=== PATIENT | male | born 1945 ===

== ENCOUNTER 2020-05-02 11:33 | Outpatient (REF) | payer MEDICARE, OTHER, SELFPAY ==
[2020-05-02 12:30] LABS: MANUAL DIFF FLAG NO
[2020-05-02 12:35] LABS: Basophils Percent Auto 0.5 % (0-2); Eosinophils Absolute Auto 0.1 X10*3/uL (0.0-0.4); Eosinophils Percent Auto 1.4 % (0-4); Hematocrit 40.9 % (42-52); Hemoglobin 14.2 g/dl (14.0-18.0); Imm Gran Abs Auto 0.01 X10*3/uL (0.00-0.03); Imm Gran Pct Auto 0.2 % (0.0-0.4); Lymphocytes Absolute Auto 2.7 X10*3/uL (1.2-4.9); Lymphocytes Percent Auto 46.1 % (20-40); Mean Corpuscular HGB Conc 34.7 g/dl (31.0-36.0); Mean Corpuscular Hemoglobin 30.7 pg (27.0-33.0); Mean Corpuscular Volume 88.5 fL (80-98); Mean Platelet Volume 11.2 fL (9.4-12.4); Monocytes Absolute Auto 0.4 X10*3/uL (0.1-1.2); Monocytes Percent Auto 6.6 % (2-11); Neutrophils Absolute Auto 2.7 X10*3/uL (2.0-8.3); Neutrophils Percent Auto 45.2 % (45-73); Platelet Count 167 X10*3/uL (160-400); Red Blood Count 4.62 X10*6/uL (4.60-5.80); White Blood Count 5.9 X10*3/uL (4.8-10.8)
[2020-05-02 13:15] LABS: Alanine Aminotransferase 50 U/L (0-40); Albumin Level 3.8 g/dL (3.5-5.0); Alkaline Phosphatase 156 U/L (39-117); Anion Gap 12 (12-20); Aspartate Amino Transferase 66 U/L (5-37); Bilirubin Total 1.2 mg/dL (0.0-1.0); Blood Urea Nitrogen 18 mg/dL (9-16); Carbon Dioxide 25 mmol/L (22-29); Chloride 105 mmol/L (96-108); Cholesterol 209 mg/dL; Estimated Glomerular Filt Rate > 60; Glucose Random 142 mg/dL (60-115); HDL Cholesterol 42 mg/dL; LDL Cholesterol Calculated 135 mg/dl; Potassium 3.8 mmol/l (3.3-5.1); Sodium 138 mmol/L (135-145); Total Protein 7.8 g/dL (6.5-8.0); Triglycerides 163 mg/dL
[2020-05-02 13:37] LABS: Thyroid Stimulating Hormone 2.79 uIU/mL (0.32-4.0)
[2020-05-02 13:43] LABS: Vitamin B12 273 pg/mL (200-900)
[2020-05-02 13:44] LABS: Estimated Average Glucose 194 mg/dL; Hemoglobin A1c % 8.4 %
[2020-05-03 22:13] LABS: Calcium (PTHI) 9.1 mg/dL (8.6-10.3); PTHI 37 pg/mL (14-64)
== END 2020-05-02 11:34 | disposition home or self-care (01) ==
LOC: HO.LAB 11:33
PROVIDERS: Visit Provider Internal Medicine Geriatric Medicine
DX: E11.9 Type 2 diabetes mellitus without complications (principal); R41.89 Other symptoms and signs involving cognitive functions and awareness
CPT/HCPCS: 36415; 80053; 80061; 82607; 83036; 83970; 84443; 85025

== ENCOUNTER → 2020-05-18 13:39 | Outpatient (REF) | payer MEDICARE, OTHER, SELFPAY ==
--- NOTE | 2020-05-18 13:45 | CA_ITS ---
Transthoracic Echocardiogram Patient (Last, First, Middle): Duane Coleman, Gender: Male Date of : 1945 Age: 74 Procedure Date: 05/18/2020 Procedure Type: Transthoracic Echocardiogram Location: OP Height: 175.26 cm Weight: 97.52 kg BSA: 2.13 m2 Heart Rate: bpm BP: 148 / 76 mmHg Neuropsychology Division Chief: MELBA Referring MD: Rudy Blandon MD Furniture Arranger: Alec Casper MD Symptoms: i21.4 NSTEMI Study Quality: Fair ECG Rhythm: Sinus Conclusions: - 1. Normal LV systolic function with grade 1 diastolic dysfunction 2. Mildly dilated ascending aorta at 4.2 cm 3. Trivial aortic regurgitation 4. Normal RV systolic pressure 5. No pericardial effusion Findings Left Ventricle Normal left ventricular size, thickness, and systolic function. The visually estimated ejection fraction is between 60-65%. Spectral Doppler is indicative of an impaired relaxation filling pattern. E/E prime ratio is <8, consistent with normal filling pressures. Evidence suggests grade I (mild) diastolic dysfunction. Right Ventricle Normal right ventricular cavity size and systolic function. Atria The left atrium is normal in size. Interatrial shunt cannot be excluded. The right atrium was not well visualized. Aortic Valve The aortic valve was not well visualized. There is no aortic valve stenosis. There is trace (trivial) aortic valve regurgitation. Mitral Valve Likely normal mitral valve structure and function. There is trace mitral valve regurgitation. There is no mitral valve stenosis. Pulmonic Valve The pulmonic valve was not well visualized. Tricuspid Valve Likely normal tricuspid valve structure and function. There is trace tricuspid valve regurgitation. The right ventricular systolic pressure is normal. The right ventricular systolic pressure is 23 mmHg. Normal right atrial pressure. There is no evidence of pulmonary hypertension. Great Vessels The pulmonary artery was not well visualized. There is mild dilatation of the ascending aorta measuring 4.20 cm. Venous The inferior vena cava is normal in size and collapses greater than 50% with inspiration. Pericardium/Pleural There is no evidence of pericardial effusion. Prior Study Comparison No significant change compared to prior study dated: 05/04/2019. Measurements 2D Linear Measurements IVSd: 1.16 0.6-0.9/0.6-1.0 cm LVIDd: 4.73 3.9-5.3/4.2-5.9 cm LVIDd Index: 2.22 2.4-3.2/2.2-3.1 cm/m2 LVIDs: 3.39 2.0-3.6 cm LVPWd: 1.04 0.7-1.1 cm Ao Root: 2.90 2.1-3.5 cm LA Diam: 3.50 2.7-3.8/3.0-4.0 cm LAIDs Index: 1.64 1.5-2.3 cm/m2 LV Mass: 236.07 67-162/88-224 g LV Mass Index: 110.83 43-95/49-115 g/m2 LVOT Diam: 2.30 3.0+(-)1.3 cm 2D Systolic Function EF 4C: 64.80 >55% Mitral Valve MV Pk E: 0.57 MV PK A: 0.85 MV Decel Time: 268.00 E/A: 0.70 E'Lateral: 7.83 E'Medial: 6.38 E/E' Med: 9.00 E/E' Lat: 7.30 PHT: 78.00 MVA PHT: 2.82 Decel [place]: 2.14 Aortic Valve AoV Pk Wil: 1.64 AoV Pk Grad: 11.00 LVOT LVOT Pk Wil: 0.96 LVOT Mn Wil: 0.63 LVOT VTI: 0.21 LVOT Pk Grad: 4.00 LVOT Mn Grad: 2.00 LVOT Diam: 2.30 LVOT Area: 4.15 Diastolic Function MV Pk E: 0.57 MV Pk A: 0.85 E/A: 0.70 E'Medial: 6.38 E/E' Med: 9.00 E' Laterial: 7.83 E/E' Lat: 7.30 Tricuspid Valve TR Pk Wil: 2.24 TR Pk Grad: 20.00 RA Press: 3.00 RVSP: 23.00 Great Vessels Aorta Ao Root-2D: 2.90 2.0-3.7 cm Ao Asc: 4.20 2.1-3.4 cm Updated in Other Vendor System with Status of Final Alec Casepr MD electronically signed on 05/18/2020 6:19:22 PM with status of Final
== END ==
LOC: HO.CARD 13:39
PROVIDERS: Visit Provider Internal Medicine
DX: I21.4 Non-ST elevation (NSTEMI) myocardial infarction (principal); I77.810 Thoracic aortic ectasia
CPT/HCPCS: 93306

== ENCOUNTER → 2020-05-25 13:47 | Outpatient (BNVA) | payer MEDICARE, OTHER, SELFPAY | PROVIDERS: PCP Family Medicine; Referring Provider Family Medicine; Visit Provider Internal Medicine | DX: I25.10 Atherosclerotic heart disease of native coronary artery without angina pectoris (principal); I63.9 Cerebral infarction, unspecified; I77.810 Thoracic aortic ectasia; I10 Essential (primary) hypertension; I47.2 Ventricular tachycardia | CPT/HCPCS: 99212 ==

== ENCOUNTER 2020-06-23 08:42 | Outpatient (REF) | payer MEDICARE, OTHER, SELFPAY ==
[2020-06-23 10:12] LABS: Alanine Aminotransferase 57 U/L (0-40); Albumin Level 3.7 g/dL (3.5-5.0); Alkaline Phosphatase 148 U/L (39-117); Aspartate Amino Transferase 62 U/L (5-37); Bilirubin Direct 0.7 mg/dL (0.0-0.5); Bilirubin Total 1.6 mg/dL (0.0-1.0); Cholesterol 148 mg/dL; HDL Cholesterol 43 mg/dL; LDL Cholesterol Calculated 82 mg/dl; Total Protein 7.7 g/dL (6.5-8.0); Triglycerides 119 mg/dL
== END 2020-06-23 08:43 | disposition home or self-care (01) ==
LOC: HO.LAB 08:42
PROVIDERS: Visit Provider Internal Medicine
DX: I25.10 Atherosclerotic heart disease of native coronary artery without angina pectoris (principal)
CPT/HCPCS: 36415; 80061; 80076

== ENCOUNTER → 2020-11-30 13:39 | Outpatient (BNVA) | payer MEDICARE, OTHER, SELFPAY | PROVIDERS: PCP Family Medicine; Referring Provider Family Medicine; Visit Provider Internal Medicine | DX: I25.10 Atherosclerotic heart disease of native coronary artery without angina pectoris (principal); I63.9 Cerebral infarction, unspecified; I77.810 Thoracic aortic ectasia; I10 Essential (primary) hypertension; I47.2 Ventricular tachycardia | CPT/HCPCS: 93005; 99212 ==

== ENCOUNTER → 2021-05-29 09:14 | Outpatient (REF) | payer MEDICARE, OTHER, SELFPAY ==
--- NOTE | 2021-05-29 09:29 | CA_ITS ---
Transthoracic Echocardiogram Patient (Last, First, Middle): Duane Coleman, Gender: Male Date of : 1945 Age: 75 Procedure Date: 05/29/2021 Procedure Type: Transthoracic Echocardiogram Location: OP Height: 172.72 cm Weight: 97.52 kg BSA: 2.11 m2 Heart Rate: bpm BP: 128 / 80 mmHg Air Conditioning Mechanic Industrial: Referring MD: Rudy Blandon MD Molding Fitter: Alec Casper MD Symptoms: I77.810 - Thoracic aortic ectasia Study Quality: Fair ECG Rhythm: Sinus Conclusions: - 1. Normal LV systolic function with mild LVH with grade 1 diastolic dysfunction 2. Mildly dilated ascending aorta at 4.3 cm 3. Trivial aortic regurgitation 4. Normal RV systolic pressure 5. No gross pericardial effusion Findings Left Ventricle Normal left ventricular size and systolic function. There is mildly increased left ventricular wall thickness. The visually estimated ejection fraction is between 55-60%. Spectral Doppler is indicative of an impaired relaxation filling pattern. E/E prime ratio is <8, consistent with normal filling pressures. Right Ventricle Normal right ventricular cavity size and systolic function. Atria The left atrium is likely dilated. Interatrial shunt cannot be excluded. The right atrium is normal in size. Aortic Valve There is mild calcification of the aortic valve. There is no aortic valve stenosis. There is trace (trivial) aortic valve regurgitation. Mitral Valve There is mild anterior and posterior mitral leaflet thickening. There is trace mitral valve regurgitation. There is no mitral valve stenosis. Pulmonic Valve The pulmonic valve was not well visualized. Tricuspid Valve Likely normal tricuspid valve structure and function. There is trace tricuspid valve regurgitation. The right ventricular systolic pressure is normal. The right ventricular systolic pressure is 13 mmHg. Normal right atrial pressure. There is no evidence of pulmonary hypertension. Great Vessels The pulmonary artery was not well visualized. There is mild dilatation of the ascending aorta measuring 4.30 cm. Venous The inferior vena cava is normal in size and collapses greater than 50% with inspiration. Pericardium/Pleural There is no evidence of pericardial effusion. Prior Study Comparison No significant change compared to prior study. Measurements 2D Linear Measurements IVSd: 1.33 0.6-0.9/0.6-1.0 cm LVIDd: 4.90 3.9-5.3/4.2-5.9 cm LVIDd Index: 2.32 2.4-3.2/2.2-3.1 cm/m2 LVIDs: 3.13 2.0-3.6 cm LVPWd: 1.38 0.7-1.1 cm Ao Root: 3.40 2.1-3.5 cm LA Diam: 3.60 2.7-3.8/3.0-4.0 cm LAIDs Index: 1.71 1.5-2.3 cm/m2 LV Mass: 335.98 67-162/88-224 g LV Mass Index: 159.23 43-95/49-115 g/m2 LVOT Diam: 2.30 3.0+(-)1.3 cm 2D Systolic Function EF 4C: 56.90 >55% EF 2C: 61.60 >55% EF BiP: 58.10 >55% Mitral Valve MV Pk E: 0.49 MV PK A: 0.88 MV Decel Time: 215.00 E/A: 0.60 E'Lateral: 8.59 E'Medial: 5.11 E/E' Med: 9.50 E/E' Lat: 5.70 PHT: 63.00 MVA PHT: 3.49 Decel [place]: 2.27 Aortic Valve AoV Pk Wil: 1.68 AoV Mn Wil: 0.98 AoV VTI: 0.31 AoV Pk Grad: 11.00 Aov Mn Grad: 5.00 NORA Cont.VTI: 2.32 LVOT LVOT Pk Wil: 0.87 LVOT Mn Wil: 0.56 LVOT VTI: 0.17 LVOT Pk Grad: 3.00 LVOT Mn Grad: 2.00 LVOT Diam: 2.30 LVOT Area: 4.15 Diastolic Function MV Pk E: 0.49 MV Pk A: 0.88 E/A: 0.60 E'Medial: 5.11 E/E' Med: 9.50 E' Laterial: 8.59 E/E' Lat: 5.70 Right Ventricle TAPSE (mm): 24.00 Tricuspid Valve TR Pk Wil: 1.58 TR Pk Grad: 10.00 RA Press: 3.00 RVSP: 13.00 Great Vessels Aorta Ao Root-2D: 3.40 2.0-3.7 cm Ao Asc: 4.30 2.1-3.4 cm Pulmonary Valve PV Pk Wil: 1.19 Peak PV Grad: 6.00 Updated in Other Vendor System with Status of Final Alec Casper MD electronically signed on 05/29/2021 7:13:11 PM with status of Final
== END ==
LOC: HO.CARD 09:14
PROVIDERS: Visit Provider Internal Medicine
DX: I77.810 Thoracic aortic ectasia (principal)
CPT/HCPCS: 93306

== ENCOUNTER → 2021-06-29 13:10 | Outpatient (BNVA) | payer MEDICARE, OTHER, SELFPAY | PROVIDERS: PCP Family Medicine; Referring Provider Family Medicine; Visit Provider Internal Medicine | DX: I25.10 Atherosclerotic heart disease of native coronary artery without angina pectoris (principal); I77.810 Thoracic aortic ectasia; I47.2 Ventricular tachycardia; I10 Essential (primary) hypertension; Z86.73 Personal history of transient ischemic attack (TIA), and cerebral infarction without residual deficits | CPT/HCPCS: 99212 ==

== ENCOUNTER → 2022-01-29 13:47 | Outpatient (BNVA) | payer MEDICARE, SELFPAY | PROVIDERS: PCP Family Medicine; Visit Provider Internal Medicine | DX: I25.10 Atherosclerotic heart disease of native coronary artery without angina pectoris (principal); I25.2 Old myocardial infarction; I77.810 Thoracic aortic ectasia; I10 Essential (primary) hypertension; I47.2 Ventricular tachycardia; Z86.73 Personal history of transient ischemic attack (TIA), and cerebral infarction without residual deficits; Z79.899 Other long term (current) drug therapy | CPT/HCPCS: 93005; 99212 ==

== ENCOUNTER → 2022-09-18 14:39 | Outpatient (REF) | payer MEDICARE, SELFPAY ==
--- NOTE | 2022-09-18 14:41 | CA_ITS ---
Transthoracic Echocardiogram Patient (Last, First, Middle): Duane Coleman, Gender: Male Date of : 1945 Age: 76 Procedure Date: 09/18/2022 Procedure Type: Transthoracic Echocardiogram Location: OP Height: 175.26 cm Weight: 96.16 kg BSA: 2.12 m2 Heart Rate: bpm BP: 118 / 58 mmHg Bushing And Broach Operator: LESLY Referring MD: Rudy Blandon MD Symptoms: I77.810 - Thoracic aortic ectasia Study Quality: Fair ECG Rhythm: Sinus Conclusions: - The left ventricular systolic function is normal. The calculated ejection fraction is 57% by biplane method. - There is moderately increased left ventricular wall thickness. - The left atrium is moderately dilated. - No obvious valvular pathology seen on this study. - There is mild dilatation of the ascending aorta measuring 4.40 cm. Findings Left Ventricle Normal left ventricular cavity size. There is moderately increased left ventricular wall thickness. The left ventricular systolic function is normal. The calculated ejection fraction is 57% by biplane method. There is no evidence of regional wall motion abnormalities. Diastolic function is normal for age. LV peak GLS -13.4%. Right Ventricle Normal right ventricular cavity size and systolic function. Atria The left atrium is moderately dilated. The right atrium is normal in size. Aortic Valve There is a normal trileaflet aortic valve. There is no aortic valve stenosis. There is trace (trivial) aortic valve regurgitation. Mitral Valve The mitral valve appears normal. There is no mitral valve regurgitation. There is no mitral valve stenosis. Pulmonic Valve The pulmonic valve is likely normal. Tricuspid Valve There is trace tricuspid valve regurgitation. Mild pulmonary hypertension is present. Great Vessels There is mild dilatation of the ascending aorta measuring 4.40 cm. Venous The inferior vena cava is mildly dilated and collapses less than 50% with inspiration. Pericardium/Pleural There is no evidence of pericardial effusion. Prior Study Comparison No significant change compared to prior study dated: 05/29/2021. Recommendations, Care & Conclusions No obvious valvular pathology seen on this study. Measurements 2D Linear Measurements IVSd: 1.33 0.6-0.9/0.6-1.0 cm LVIDd: 4.74 3.9-5.3/4.2-5.9 cm LVIDd Index: 2.24 2.4-3.2/2.2-3.1 cm/m2 LVIDs: 3.53 2.0-3.6 cm LVPWd: 1.30 0.7-1.1 cm LA Diam: 3.40 2.7-3.8/3.0-4.0 cm LAIDs Index: 1.60 1.5-2.3 cm/m2 LV Mass: 305.57 67-162/88-224 g LV Mass Index: 144.14 43-95/49-115 g/m2 LVOT Diam: 2.30 3.0+(-)1.3 cm 2D Systolic Function EF 4C: 61.10 >55% EF 2C: 53.30 >55% EF BiP: 56.70 >55% Mitral Valve MV Pk E: 0.66 MV PK A: 0.92 MV Decel Time: 281.00 E/A: 0.70 E'Lateral: 7.62 E'Medial: 5.44 E/E' Med: 12.20 E/E' Lat: 8.70 PHT: 82.00 MVA PHT: 2.68 Decel [place]: 2.36 Aortic Valve AoV Pk Wil: 1.83 AoV Mn Wil: 1.26 AoV VTI: 0.35 AoV Pk Grad: 13.00 Aov Mn Grad: 7.00 NORA Cont.VTI: 2.45 LVOT LVOT Pk Wil: 1.07 LVOT Mn Wil: 0.72 LVOT VTI: 0.21 LVOT Pk Grad: 5.00 LVOT Mn Grad: 3.00 LVOT Diam: 2.30 LVOT Area: 4.15 Diastolic Function MV Pk E: 0.66 MV Pk A: 0.92 E/A: 0.70 E'Medial: 5.44 E/E' Med: 12.20 E' Laterial: 7.62 E/E' Lat: 8.70 Right Ventricle TAPSE (mm): 23.80 TVS' Wil: 13.10 Tricuspid Valve TR Pk Wil: 2.27 TR Pk Grad: 21.00 RA Press: 15.00 RVSP: 36.00 Great Vessels Aorta Sinus of Valsalva: 3.54 2.0-3.[address] [place]: 2.26 1.7-3.4 cm Ao Asc: 4.40 2.1-3.4 cm Updated in Other Vendor System with Status of Final Rudy Blandon MD electronically signed on 09/19/2022 1:24:00 PM with status of Final
== END ==
LOC: HO.CARD 14:39
PROVIDERS: PCP Family Medicine; Visit Provider Internal Medicine
DX: I77.810 Thoracic aortic ectasia (principal)
CPT/HCPCS: 93306; 93356

== ENCOUNTER → 2022-10-16 14:33 | Outpatient (BNVA) | payer MEDICARE, SELFPAY | PROVIDERS: PCP Family Medicine; Referring Provider Family Medicine; Visit Provider Internal Medicine | DX: I25.10 Atherosclerotic heart disease of native coronary artery without angina pectoris (principal); I77.810 Thoracic aortic ectasia; I10 Essential (primary) hypertension; I47.20 Ventricular tachycardia, unspecified; I25.2 Old myocardial infarction; Z86.73 Personal history of transient ischemic attack (TIA), and cerebral infarction without residual deficits; Z79.899 Other long term (current) drug therapy | CPT/HCPCS: 93005; 99212 ==

== ENCOUNTER 2022-10-26 20:44 | Inpatient (IN) | payer MEDICARE, OTHER, SELFPAY ==
--- NOTE | ~2022-10-26 | CT_ITS ---
EXAMINATION: CT ABDOMEN AND PELVIS WITHOUT CONTRAST CLINICAL INFORMATION: Elevated bilirubin COMPARISON: None available. TECHNIQUE: Multidetector volumetric imaging was performed from the superior aspect of the liver through the pubic symphysis. Sagittal and coronal reformatted images were obtained on the technologist's workstation. This CT examination was performed using dose optimization techniques as appropriate, variously including the following: *Automated exposure control *Adjustment of mA and/or kV according to patient size (this includes techniques or standardized protocols for targeted exams where dose is matched to indication/reason for exam; i.e. extremities or head) *Use of iterative reconstruction technique DLP: 847 mGy-cm FINDINGS: Limited evaluation in some regions due to patient motion artifact. LUNG BASES: Mild bibasilar atelectasis. LIVER, GALLBLADDER, AND BILIARY TREE: The liver demonstrates a nodular contour suspicious for cirrhosis. Inadequate assessment for focal lesions without intravenous contrast. Minimal intrahepatic biliary ductal dilatation cannot be excluded. Cholelithiasis is noted. PANCREAS: Unremarkable. SPLEEN: Unremarkable. ADRENAL GLANDS: Unremarkable. KIDNEYS AND URETERS: The kidneys are normal in size, shape, and attenuation. No hydronephrosis, hydroureter, or calculi seen. No significant perinephric stranding. BLADDER: Unremarkable. GASTROINTESTINAL TRACT: Colonic diverticulosis is noted. The small and large bowel are otherwise unremarkable without evidence of obstruction or pericolonic inflammatory change. The appendix is unremarkable. No free air is seen. There is trace free fluid in the pelvis. ABDOMINAL WALL: Bilateral fat-containing inguinal hernias. LYMPH NODES: No lymphadenopathy is seen, though assessment is limited in the absence of intravenous contrast. VASCULAR: Scattered atherosclerotic calcifications. PELVIC VISCERA: The prostate gland is enlarged, measuring 5.6 cm in transverse diameter. OSSEOUS STRUCTURES: Degenerative changes are noted in the spine. CT/CT abdomen pelvis wo IV con IMPRESSION: 1. Limited evaluation due to patient motion artifact. 2. Cholelithiasis. If there is clinical concern for cholecystitis, this would be better assessed with ultrasound. 3. Nodular hepatic contour suspicious for cirrhosis. Inadequate assessment for focal lesions without intravenous contrast. Slight intrahepatic biliary ductal dilatation cannot be excluded. 4. Colonic diverticulosis without diverticulitis. 5. Trace pelvic free fluid, of uncertain etiology. 6. Enlarged prostate gland.
--- NOTE | ~2022-10-26 | CT_ITS ---
EXAMINATION: CT HEAD WITHOUT CONTRAST CLINICAL INFORMATION: Operative altered mental status COMPARISON: None available. TECHNIQUE: Contiguous axial imaging was performed from the skull base to vertex without intravenous administration of contrast. This CT examination was performed using dose optimization techniques as appropriate, variously including the following: *Automated exposure control *Adjustment of mA and/or kV according to patient size (this includes techniques or standardized protocols for targeted exams where dose is matched to indication/reason for exam; i.e. extremities or head) *Use of iterative reconstruction technique DLP: 740 mGy-cm FINDINGS: There is no midline shift. There is no mass effect. There is no hemorrhage. The basilar cisterns appear patent. The posterior fossa is grossly within normal limits. There is no extra-axial collection. Some scattered areas of white matter ischemic change. Mild atrophy. Grossly clear sinuses. CT/CT head/brain wo IV con IMPRESSION: Some limitation from motion. No acute finding.
--- NOTE | ~2022-10-26 | US_ITS ---
EXAMINATION: US ABDOMEN COMPLETE CLINICAL INFORMATION: Question bile duct dilatation. COMPARISON: Previous CT from earlier the same day TECHNIQUE: Real-time imaging of the abdominal viscera. Limited abdominal /liver Doppler was also performed. FINDINGS: PANCREAS: Question 9 x 10 mm hypoechoic lesion in the neck of the pancreas.. ABDOMINAL AORTA: The proximal, mid, and distal segments are normal in caliber. INFERIOR VENA CAVA: Visualized portions are normal. LIVER: The liver is cirrhotic. There is a 1 x 1.2 cm hypoechoic lesion in the left lobe of the liver. Intrahepatic bile ducts are difficult to evaluate due to severe cirrhotic changes of the liver. No definite intrahepatic biliary duct dilatation is seen. There is a recannulized paraumbilical vein. There is hepatofugal flow seen in the extrahepatic and main portal vein. The left portal vein appears occluded. The right portal vein is not seen. There may be thrombus in the main portal vein. Hepatofugal flow in the splenic vein. Hepatic artery peak systolic velocity is increased measuring 251 cm/s. GALLBLADDER: The gallbladder is upper normal in size. There are small gallstones. COMMON BILE DUCT: Normal in caliber measuring 0.4 cm in diameter. RIGHT KIDNEY: Normal. No hydronephrosis. No renal calculi or focal parenchymal lesions. The kidney measures 9.5 cm in maximum dimension. LEFT KIDNEY: Left kidney is larger than the right. No hydronephrosis. No renal calculi or focal parenchymal lesions. The kidney measures 13.4 cm in maximum dimension. SPLEEN: Normal. The spleen measures 12 cm in maximum dimension. FREE FLUID: None. US/US abdomen complete IMPRESSION: Cirrhotic-appearing liver. Partially occluded portal vein. There is reversed hepatofugal flow in the main and extrahepatic portal veins and splenic vein. There is a recannulized paraumbilical vein. There is no ascites. 1 cm low-attenuation lesion in the left lobe of the liver and question similar size lesion in the neck of the pancreas. Further characterization with MRI recommended. Gallstones.
--- NOTE | 2022-10-26 21:01 | ECG_ITS ---
Test Reason : WEAKNESS Blood Pressure : / mmHG Vent. Rate : 079 BPM Atrial Rate : 079 BPM P-R Int : 168 ms QRS Dur : 094 ms QT Int : 418 ms P-R-T Axes : 013 -19 035 degrees QTc Int : 479 ms Sinus rhythm with occasional Premature ventricular complexes Minimal voltage criteria for LVH, may be normal variant ( R in aVL ) Borderline ECG When compared with ECG of 12-MAY-2015 04:41, Premature ventricular complexes are now Present ST no longer depressed in Anterior leads Nonspecific T wave abnormality no longer evident in Inferior leads Referred By: Chelsi Chowdhury Electronically Signed By:PAULINA CARRERA
[2022-10-26 21:31] VITALS: BP 148/74; TEMP 37.1; BMI 29.2
--- NOTE | 2022-10-26 21:44 | PC.NURSE ---
pt's daughter mentioned that his labs for LFTs came back 'abnormal' skin/eye jaundice observed
[2022-10-26 21:59] LABS: Appearance Urine Clear; Color Urine Yellow; Glucose Urine UA Negative (Negative); Leukocyte Esterase Urine Negative (Negative); Nitrite Urine Negative (Negative); PH 6.5 (5.0-9.0); Specific Gravity - Urine <= 1.005 (1.005-1.025); Urine Blood Negative (Negative); Urine Ketones Negative (Negative); Urine Protein Negative (Neg-Trace)
--- NOTE | 2022-10-26 22:03 | ED.AMS ---
HPI - Altered Mental Status General Chief Complaint: Altered Mental Status Stated Complaint: Fatigue, black stool Time Seen by Provider: 10/26/22 21:12 History of Present Illness HPI narrative: Patient is a 76-year-old male with a history of nonsustained V-tach history of diabetes on metformin. History of CVA and NV in the past presented today with having increasing weakness generalized malaise change in mental status. Symptom has been ongoing for the last 4 days. There is no coughing no congestion or upper respiratory symptoms. Family noted patient's stool is becoming very dark in color. Patient has been taking Motrin for generalized aches. No history of alcohol abuse. Patient is from home. No fever no chills. No chest pain or diaphoresis. Family claims patient is more confused than normal. Is thinking that he needs to find a pot to urinate on. Which is unusual for patient. Related Data Home Medications Medication Instructions Recorded Confirmed losartan 100 1 tab PO DAILY 05/25/20 10/16/22 mg-hydrochlorothiazide 25 mg tablet metformin 500 mg tablet 500 mg PO BID 05/25/20 10/16/22 nitroglycerin 0.4 mg sublingual 0.4 mg sublingual angina 05/25/20 10/16/22 tablet latanoprost 0.005 % eye drops 1 drp ophthalmic (eye) BEDTIME 01/29/22 10/16/22 pioglitazone 30 mg tablet 30 mg PO DAILY 01/29/22 10/16/22 timolol maleate 0.5 % eye drops 1 drp ophthalmic (eye) BID 01/29/22 10/16/22 aspirin 81 mg tablet,delayed 81 mg PO DAILY 10/16/22 10/16/22 release (Adult Aspirin Regimen) Previous Rx's Medication Instructions Recorded metoprolol succinate 25 mg 25 mg PO DAILY #90 tabs 06/27/20 tablet,extended release 24 hr Allergies Allergy/AdvReac Type Severity Reaction Status Date / Time No Known Allergies Allergy Verified 10/16/22 14:37 [No Known Allergies*] Review of Systems Review of Systems: No fever no chills no diaphoresis Yes all other systems are reviewed and are negative [facility] Past Medical History Attestation statement: The following information was validated with the patient. 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 Mother No problems noted. Social History Social History Alcohol intake: never Patient Tobacco Use Status: Former Tobacco user Quit Date: 2010 Smoked in Last 30 Days: No Use of substances other than those prescribed or required for medical reasons: No Advance Directives: No Advance Directives Information Provided: Yes Physical Exam ED Vital Signs: Vital Signs - 24 hr 10/26/22 21:31 10/26/22 22:26 10/26/22 23:56 Temperature 98.7 F 98.4 F 98.4 F Pulse Rate 81 77 Respiratory Rate 16 16 Blood Pressure 148/74 H 102/68 127/65 Pulse Oximetry 97 97 Oxygen Delivery Method Room Air Room Air BMI result Body Mass Index 29.2 Appearance: Alert. Oriented X3. No acute distress. Eyes: Pupils equal, round and reactive to light. ENT: Pharynx normal. Neck: Normal inspection. Neck supple. No lymph nodes noted. No crepitus CVS: Normal heart rate and rhythm. Pulses normal. Normal S1 and S2 Respiratory: No respiratory distress. Breath sounds normal. No Wheezing. No rales Abdomen: Soft and nontender. No rigidity. No distention. good BS x4 Skin: Skin warm and dry. Normal skin color. Normal skin turgor. Extremities: No lower extremity edema. Neurovascular intact to all extremities. No Lacerations. No Rash Neuro: Oriented X 3. No motor deficit. No sensory deficit. Moving all extermities. No slurred speech Medications Administered Discontinued Medications Generic Name Dose Route Start Last Admin Trade Name Efremq PRN Reason Stop Dose Admin Lorazepam 1 mg 10/26/22 22:29 10/26/22 23:08 Lorazepam 2 Mg/Ml Vial IVPUSH 10/26/22 22:30 1 mg ONCE ONE Administration Pantoprazole Sodium 40 mg 10/26/22 22:30 10/26/22 23:13 Pantoprazole Sodium 40 Mg/10 Ml Vial IVPUSH 10/26/22 22:31 40 mg ONCE ONE Administration Medical Decision Making Medical Decision Making [facility] Narrative: Patient's bilirubin is elevated. This is new. Patient's ammonia level is 120. CT scan of the head was grossly negative for any acute evidence of bleeding. A hepatic encephalopathy likely is causing patient's change in mental status. Tylenol levels are negative no history of drinking question etiology of the liver cirrhosis. Case discussed with the hospitalist team. Will admit for further evaluation. Differential Diagnosis Liver cirrhosis, intracranial bleed Admission/Observation Consideration of admission/observation: Escalation of care including admission/observation considered Consult Healthcare Provider Management of the patient was discussed with: Hospitalist Lab Data [facility] Lab Attestation statement: I reviewed the patient's lab results. 10/26/22 22:22 10/26/22 22:16 Labs: Lab Results 10/26/22 10/26/22 10/26/22 Range/Units 21:51 22:16 22:16 WBC (4.8-10.8) X10*3/uL RBC (4.60-5.80) X10*6/uL Hgb (14.0-18.0) g/dl Hct (42.0-52.0) % MCV (80.0-98.0) fL MCH (27.0-33.0) pg MCHC (31.0-36.0) g/dl RDW (11.0-16.0) % Plt Count (160-400) X10*3/uL MPV (9.4-12.4) fL Immature Gran % (Auto) (0.0-0.4) % Neut % (Auto) (45-73) % Lymph % (Auto) (20-40) % [place] % (Auto) (2-11) % Eos % (Auto) (0-4) % Baso % (Auto) (0-2) % Lymph # (Auto) (1.2-4.9) X10*3/uL [place] # (Auto) (0.1-1.2) X10*3/uL Eos # (Auto) (0.0-0.4) X10*3/uL Baso # (Auto) (0.0-0.2) X10*3/uL Abs Immat Gran (auto) (0.00-0.03) X10*3/uL Absolute Neuts (auto) (2.0-8.3) x10*3/uL Absolute Nucleated RBC (0.0-0.012) X10*3/uL Nucleated RBC % (auto) (0.0-0.2) /100WBC Sodium 138 (135-145) mmol/L Potassium 4.7 (3.3-5.1) mmol/L Chloride 112 H (96-108) mmol/L Carbon Dioxide 20 L (22-29) mmol/L Anion Gap 12 (12-20) BUN 25 H (9-16) mg/dL Creatinine 2.23 H (0.5-1.4) mg/dL Estim Creat Clear Calc 32.2 Estimated GFR 29 Random Glucose 110 (60-115) mg/dL Calcium 8.5 (8.4-10.2) mg/dL Total Bilirubin 7.7 H (0.0-1.0) mg/dL AST 148 H (5-37) U/L ALT 70 H (0-40) U/L Alkaline Phosphatase 320 H (39-117) U/L Ammonia (13-55) umol/L Total Protein 7.4 (6.5-8.0) g/dL Albumin 2.4 L (3.5-5.0) g/dL TSH 2.84 (0.32-4.0) uIU/mL Urine Color Yellow Urine Appearance Clear Urine pH 6.5 (5.0-9.0) Ur Specific [place] <= 1.005 (1.005-1.025) Urine Protein Negative (Neg-Trace) mg/dL Urine Glucose (UA) Negative (Negative) mg/dL Urine Ketones Negative (Negative) mg/dL Urine Blood Negative (Negative) Urine Nitrite Negative (Negative) Ur Leukocyte Esterase Negative (Negative) Stool Occult Blood (NEGATIVE) Salicylates < 5.0 L (15-30) mg/dL Acetaminophen < 17 (<30) mcg/mL Ethyl Alcohol < 10 mg/dL 10/26/22 10/26/22 10/26/22 Range/Units 22:16 22:22 22:22 WBC 9.1 (4.8-10.8) X10*3/uL RBC 3.32 L (4.60-5.80) X10*6/uL Hgb 10.5 L (14.0-18.0) g/dl Hct 30.0 L (42.0-52.0) % MCV 90.4 (80.0-98.0) fL MCH 31.6 (27.0-33.0) pg MCHC 35.0 (31.0-36.0) g/dl RDW 21.0 H (11.0-16.0) % Plt Count 155 L (160-400) X10*3/uL MPV 10.7 (9.4-12.4) fL Immature Gran % (Auto) 0.3 (0.0-0.4) % Neut % (Auto) 66.6 (45-73) % Lymph % (Auto) 24.8 (20-40) % [place] % (Auto) 6.9 (2-11) % Eos % (Auto) 1.1 (0-4) % Baso % (Auto) 0.3 (0-2) % Lymph # (Auto) 2.3 (1.2-4.9) X10*3/uL [place] # (Auto) 0.6 (0.1-1.2) X10*3/uL Eos # (Auto) 0.1 (0.0-0.4) X10*3/uL Baso # (Auto) 0.0 (0.0-0.2) X10*3/uL Abs Immat Gran (auto) 0.03 (0.00-0.03) X10*3/uL Absolute Neuts (auto) 6.1 (2.0-8.3) x10*3/uL Absolute Nucleated RBC 0.000 (0.0-0.012) X10*3/uL Nucleated RBC % (auto) 0.0 (0.0-0.2) /100WBC Sodium (135-145) mmol/L Potassium (3.3-5.1) mmol/L Chloride (96-108) mmol/L Carbon Dioxide (22-29) mmol/L Anion Gap (12-20) BUN (9-16) mg/dL Creatinine (0.5-1.4) mg/dL Estim Creat Clear Calc Estimated GFR Random Glucose (60-115) mg/dL Calcium (8.4-10.2) mg/dL Total Bilirubin (0.0-1.0) mg/dL AST (5-37) U/L ALT (0-40) U/L Alkaline Phosphatase (39-117) U/L Ammonia 125 H (13-55) umol/L Total Protein (6.5-8.0) g/dL Albumin (3.5-5.0) g/dL TSH (0.32-4.0) uIU/mL Urine Color Urine Appearance Urine pH (5.0-9.0) Ur Specific [place] (1.005-1.025) Urine Protein (Neg-Trace) mg/dL Urine Glucose (UA) (Negative) mg/dL Urine Ketones (Negative) mg/dL Urine Blood (Negative) Urine Nitrite (Negative) Ur Leukocyte Esterase (Negative) Stool Occult Blood POSITIVE (NEGATIVE) Salicylates (15-30) mg/dL Acetaminophen (<30) mcg/mL Ethyl Alcohol mg/dL Independent Interpretation I performed an independent interpretation of an: CT Scan Interpretation: CT scan of the head was grossly negative for any acute evidence of bleeding Radiology Impression Discussion of test interpretation with radiology: I have reviewed the radiologist's reading. Independent Historian Clinical information obtained from an independent historian. History obtained from or confirmed by: Spouse External Record Review External record reviewed: Inpatient record Chronic Conditions Stroke, TIA Discharge Plan Discharge Clinical Impression: Acute hepatic encephalopathy Patient Disposition: Admitted As Inpatient Prescriptions: No Action metoprolol succinate 25 mg tablet extended release 24 hr 25 mg PO DAILY Qty: 90 2RF metformin 500 mg tablet 500 mg PO BID losartan-hydrochlorothiazide 100-25 mg tablet 1 tab PO DAILY nitroglycerin 0.4 mg tablet, sublingual 0.4 mg sublingual pioglitazone 30 mg tablet 30 mg PO DAILY timolol maleate 0.5 % drops 1 drp ophthalmic (eye) BID latanoprost 0.005 % drops 1 drp ophthalmic (eye) BEDTIME aspirin [Adult Aspirin Regimen] 81 mg tablet,delayed release (DR/EC) 81 mg PO DAILY
[2022-10-26 22:22] LABS: OBS Int Ctl Valid YES; OBS1 POSITIVE (NEGATIVE)
[2022-10-26 22:26] VITALS: BP 102/68; PULSE 81; RESP 16; TEMP 36.9; O2SAT 97
[2022-10-26 22:27] LABS: MANUAL DIFF FLAG NO
[2022-10-26 22:28] LABS: Basophils Percent Auto 0.3 % (0-2); Eosinophils Absolute Auto 0.1 X10*3/uL (0.0-0.4); Eosinophils Percent Auto 1.1 % (0-4); Hemoglobin 10.5 g/dl (14.0-18.0); Imm Gran Abs Auto 0.03 X10*3/uL (0.00-0.03); Imm Gran Pct Auto 0.3 % (0.0-0.4); Lymphocytes Absolute Auto 2.3 X10*3/uL (1.2-4.9); Lymphocytes Percent Auto 24.8 % (20-40); Mean Corpuscular Hemoglobin 31.6 pg (27.0-33.0); Mean Corpuscular Volume 90.4 fL (80.0-98.0); Mean Platelet Volume 10.7 fL (9.4-12.4); Monocytes Absolute Auto 0.6 X10*3/uL (0.1-1.2); Monocytes Percent Auto 6.9 % (2-11); Neutrophils Absolute Auto 6.1 x10*3/uL (2.0-8.3); Neutrophils Percent Auto 66.6 % (45-73); Platelet Count 155 X10*3/uL (160-400); Red Blood Count 3.32 X10*6/uL (4.60-5.80); White Blood Count 9.1 X10*3/uL (4.8-10.8)
[2022-10-26 22:42] LABS: Ammonia 125 umol/L (13-55)
[2022-10-26 22:52] LABS: Alanine Aminotransferase 70 U/L (0-40); Albumin Level 2.4 g/dL (3.5-5.0); Alkaline Phosphatase 320 U/L (39-117); Anion Gap 12 (12-20); Aspartate Amino Transferase 148 U/L (5-37); Bilirubin Total 7.7 mg/dL (0.0-1.0); Blood Urea Nitrogen 25 mg/dL (9-16); Calcium 8.5 mg/dL (8.4-10.2); Carbon Dioxide 20 mmol/L (22-29); Chloride 112 mmol/L (96-108); Creatinine Clr Calc Pharmacy 32.2; Estimated Glomerular Filt Rate 29; Glucose Random 110 mg/dL (60-115); Potassium 4.7 mmol/L (3.3-5.1); Sodium 138 mmol/L (135-145); Total Protein 7.4 g/dL (6.5-8.0)
[2022-10-26 22:56] LABS: TSH reflex Free T4 2.84 uIU/mL (0.32-4.0)
[2022-10-26] MEDS: LORazepam 2 MG/ML VIAL 1 MG IVPUSH (23:08)
[2022-10-26] MEDS: Pantoprazole Sodium 40 MG/10 ML VIAL IVPUSH (23:13)
[2022-10-26 23:30] LABS: Acetaminophen LAB < 17 mcg/mL (<30); Salicylate < 5.0 mg/dL (15-30)
[2022-10-26 23:56] VITALS: BP 127/65; PULSE 77; RESP 16; TEMP 36.9; O2SAT 97
[2022-10-27] VITALS (8 sets, daily range): BP systolic 140–180; BP diastolic 72–89; PULSE 74–95; RESP 15–20; TEMP 36.5–37; O2SAT 95–99
[2022-10-27 00:22] LABS: Ethanol < 10 mg/dL
[2022-10-27] MEDS: Lactulose 20 GM/30 ML SOLUTION 30 GM PO ×2 (00:38→09:07)
--- NOTE | 2022-10-27 00:45 | PC.NURSE ---
lactulose 30 mg administered per MAR delayed d/t verification needed
--- NOTE | 2022-10-27 01:16 | PC.NURSE ---
med rec complete pt non compliant with meds reviewed meds with hospitalist
--- NOTE | 2022-10-27 01:19 | PM.IMHP ---
History of Present Illness Date of Service: 10/27/22 Chief Complaint: Altered mentation This is a 76-year-old male with pertinent history of essential hypertension, zfv-oztuiit-jsasmoanc diabetes mellitus who was brought to the emergency department for evaluation of altered mentation. As per the family, patient has been confused over the last 2-3 days but confusion was worse on the day of presentation. Family also noticed that patient's stool has become black in color. He takes Advil for generalized body ache. Family does note that patient's PCP told that patient's liver function was altered but does not know if he has a history of cirrhosis. Patient is noncompliant with medications. No significant alcohol use as per the family. No history of hepatitis. Unable to obtain history as patient is confused. Unable to obtain review of systems. 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 Mother No problems noted. Surgical History History of cardiac catheterization (~04/2015) Social History Alcohol intake: never Patient Tobacco Use Status: Former Tobacco user Quit Date: 2010 Smoked in Last 30 Days: No Use of substances other than those prescribed or required for medical reasons: No Advance Directives: No Advance Directives Information Provided: Yes Meds Allergies Allergy/AdvReac Type Severity Reaction Status Date / Time No Known Allergies Allergy Verified 10/27/22 01:04 [No Known Allergies*] Active Medications: Current Medications Enoxaparin Sodium (Enoxaparin Sodium 30 Mg/0.3 Ml Syringe) 30 mg SUBCUT Q24H MEIR Lactulose (Lactulose 20 Gm/30 Ml Solution) 30 gm PO TID MEIR Last Admin: 10/27/22 00:38 Dose: 30 gm Lactulose (Lactulose 320 Gm/480 Ml Solution) 200 gm TN ONCE ONE Stop: 10/27/22 01:19 Melatonin (Melatonin 3 Mg Tablet) 6 mg PO BEDTIME PRN PRN Reason: Insomnia Ondansetron HCl (Ondansetron Hcl 4 Mg/2 Ml Vial) 4 mg IVPUSH Q8H PRN PRN Reason: Nausea and Vomiting Sodium Chloride (0.9 % Sodium Chloride Flush 3 Ml Syringe) 3 ml IVFLUSH [facility] Medications Medication Instructions Recorded Confirmed Last Taken Type metformin 500 mg tablet 500 mg PO BID 05/25/20 10/27/22 Unknown History latanoprost 0.005 % eye drops 1 drp ophthalmic (eye) BEDTIME 01/29/22 10/27/22 Unknown History pioglitazone 30 mg tablet 30 mg PO DAILY 01/29/22 10/27/22 Unknown History timolol maleate 0.5 % eye drops 1 drp ophthalmic (eye) BID 01/29/22 10/27/22 Unknown History aspirin 81 mg tablet,delayed 81 mg PO DAILY 10/16/22 10/27/22 Unknown History release (Adult Aspirin Regimen) mirtazapine 15 mg tablet 7.5 mg PO DAILY 10/27/22 10/27/22 Unknown History Physical Exam Vital Signs and Narrative: Vital Signs: Last Vital Signs Temp 98.4 F 10/26/22 23:56 Pulse 77 10/26/22 23:56 Resp 16 10/26/22 23:56 BP 127/65 10/26/22 23:56 Pulse Ox 97 10/26/22 23:56 O2 Del Method Room Air 10/26/22 23:56 BMI result Body Mass Index 29.2 Middle-aged male lying in bed in no distress Neck supple, no JVD Regular rate and rhythm, S1-S2 heard Regular breath sounds bilaterally, no wheezing or crackles appreciated Abdomen soft nontender, no guarding, no rigidity Patient is awake, alert and disoriented to self, place, time and person ; no focal motor deficit Results Labs 10/26/22 22:22 10/26/22 22:16 Labs: Laboratory Results - last 24 hr 10/26/22 10/26/22 10/26/22 21:51 22:16 22:16 MCV MCH MCHC RDW Plt Count MPV Immature Gran % (Auto) Neut % (Auto) Lymph % (Auto) [place] % (Auto) Eos % (Auto) Baso % (Auto) Lymph # (Auto) [place] # (Auto) Eos # (Auto) Baso # (Auto) Abs Immat Gran (auto) Absolute Neuts (auto) Absolute Nucleated RBC Nucleated RBC % (auto) Anion Gap 12 Estim Creat Clear Calc 32.2 Estimated GFR 29 Random Glucose 110 Calcium 8.5 Total Bilirubin 7.7 H AST 148 H ALT 70 H Alkaline Phosphatase 320 H Ammonia Total Protein 7.4 Albumin 2.4 L TSH 2.84 Urine Color Yellow Urine Appearance Clear Urine pH 6.5 Ur Specific [place] <= 1.005 Urine Protein Negative Urine Glucose (UA) Negative Urine Ketones Negative Urine Blood Negative Urine Nitrite Negative Ur Leukocyte Esterase Negative Stool Occult Blood Salicylates < 5.0 L Acetaminophen < 17 Ethyl Alcohol < 10 10/26/22 10/26/22 10/26/22 22:16 22:22 22:22 MCV 90.4 MCH 31.6 MCHC 35.0 RDW 21.0 H Plt Count 155 L MPV 10.7 Immature Gran % (Auto) 0.3 Neut % (Auto) 66.6 Lymph % (Auto) 24.8 [place] % (Auto) 6.9 Eos % (Auto) 1.1 Baso % (Auto) 0.3 Lymph # (Auto) 2.3 [place] # (Auto) 0.6 Eos # (Auto) 0.1 Baso # (Auto) 0.0 Abs Immat Gran (auto) 0.03 Absolute Neuts (auto) 6.1 Absolute Nucleated RBC 0.000 Nucleated RBC % (auto) 0.0 Anion Gap Estim Creat Clear Calc Estimated GFR Random Glucose Calcium Total Bilirubin AST ALT Alkaline Phosphatase Ammonia 125 H Total Protein Albumin TSH Urine Color Urine Appearance Urine pH Ur Specific [place] Urine Protein Urine Glucose (UA) Urine Ketones Urine Blood Urine Nitrite Ur Leukocyte Esterase Stool Occult Blood POSITIVE Salicylates Acetaminophen Ethyl Alcohol Imaging Radiologist's Impressions: Impressions Head CT 10/27/22 00:10 IMPRESSION: Some limitation from motion. No acute finding. Abdomen/Pelvis CT 10/27/22 00:29 IMPRESSION: 1. Limited evaluation due to patient motion artifact. 2. Cholelithiasis. If there is clinical concern for cholecystitis, this would be better assessed with ultrasound. 3. Nodular hepatic contour suspicious for cirrhosis. Inadequate assessment for focal lesions without intravenous contrast. Slight intrahepatic biliary ductal dilatation cannot be excluded. 4. Colonic diverticulosis without diverticulitis. 5. Trace pelvic free fluid, of uncertain etiology. 6. Enlarged prostate gland. Assessment and Plan (1) Acute hepatic encephalopathy: Status: Acute Plan This is a 76-year-old male with pertinent history of essential hypertension, iaa-rgyiaxo-rjujvwlvj diabetes mellitus who was brought to the emergency department for evaluation of altered mentation. #. Acute GI bleed: Patient has history of NSAID use. Resuscitating with IV crystalloids. Continue IV Protonix. Close monitor H&H. Consulted GI, appreciate assistance. Will keep patient NPO #. Acute encephalopathy in a patient with decompensated cirrhosis in the setting of above: Will admit and initiate lactulose. Hepatitis panel pending. Initiated empiric IV Rocephin. Obtaining ultrasound to look at bile duct #. Elevated creatinine: Acute kidney injury versus CKD. Monitor creatinine and urine output with fluid resuscitation. Avoid nephrotoxins #. Normocytic anemia #. Ysw-xvvsgqh-kuvugcdbl diabetes mellitus: Initiating Accu-Cheks with sliding scale insulin every 6 hours Med rec pending DVT prophylaxis: Mechanical NPO Full code Admit as inpatient and will require two night minimum hospital stay for Time Spent With Patient Time: Total time managing care of this patient today ____ minutes. Quality Stroke Does the patient have a stroke diagnosis?: No VTE Prior VTE?: No VTE Risk Level:: Medical - moderate - high VTE Device Contraindication: N/A - Device Ordered VTE Drug Contraindication: Treatment Not Indicated
[2022-10-27] MEDS: 0.9 % Sodium Chloride 1,000 ML 999 ML IV (02:08)
[2022-10-27] MEDS: Pantoprazole Sodium 40 MG/10 ML VIAL IVPUSH ×2 (02:08→17:15)
[2022-10-27] MEDS: cefTRIAXone sodium 1 GM in 0.9 % Sodium Chloride 50 ML IV (02:08)
[2022-10-27] MEDS: OLANZapine 10 MG VIAL IM (02:11)
[2022-10-27 02:30] LABS: Glucose, Whole Blood 120 mg/dL (60-115)
--- NOTE | 2022-10-27 02:32 | PC.NURSE ---
pt sleeping respirations even and unlabored
--- NOTE | 2022-10-27 02:39 | PC.NURSE ---
report given to Ronaldo RN pt to room 479 no apparent distress pt sleeping
[2022-10-27] MEDS: Lactulose 320 GM/480 ML SOLUTION 200 GM PR (03:53)
[2022-10-27 07:02] LABS: MANUAL DIFF FLAG NO
[2022-10-27 07:09] LABS: Basophils Percent Auto 0.5 % (0-2); Eosinophils Absolute Auto 0.1 X10*3/uL (0.0-0.4); Eosinophils Percent Auto 0.8 % (0-4); Hematocrit 28.3 % (42.0-52.0); Hemoglobin 9.9 g/dl (14.0-18.0); Imm Gran Abs Auto 0.03 X10*3/uL (0.00-0.03); Imm Gran Pct Auto 0.4 % (0.0-0.4); Lymphocytes Absolute Auto 2.1 X10*3/uL (1.2-4.9); Lymphocytes Percent Auto 27.8 % (20-40); Mean Corpuscular Hemoglobin 31.9 pg (27.0-33.0); Mean Corpuscular Volume 91.3 fL (80.0-98.0); Mean Platelet Volume 11.1 fL (9.4-12.4); Monocytes Absolute Auto 0.6 X10*3/uL (0.1-1.2); Monocytes Percent Auto 7.6 % (2-11); Neutrophils Absolute Auto 4.8 x10*3/uL (2.0-8.3); Neutrophils Percent Auto 62.9 % (45-73); Platelet Count 154 X10*3/uL (160-400); Red Cell Distribution Width 21.4 % (11.0-16.0); White Blood Count 7.6 X10*3/uL (4.8-10.8)
[2022-10-27 07:31] LABS: Alanine Aminotransferase 66 U/L (0-40); Albumin Level 2.4 g/dL (3.5-5.0); Alkaline Phosphatase 301 U/L (39-117); Aspartate Amino Transferase 131 U/L (5-37); Bilirubin Total 8.3 mg/dL (0.0-1.0); Blood Urea Nitrogen 26 mg/dL (9-16); Calcium 8.7 mg/dL (8.4-10.2); Creatinine Clr Calc Pharmacy 30.3; Estimated Glomerular Filt Rate 27; Glucose Random 112 mg/dL (60-115); Total Protein 7.1 g/dL (6.5-8.0)
[2022-10-27 07:39] LABS: Glucose, Whole Blood 107 mg/dL (60-115)
[2022-10-27 07:40] LABS: Glucose, Whole Blood 115 mg/dL (60-115)
--- NOTE | 2022-10-27 07:47 | PHA.MEDREC ---
Pharmacy Consult ? Medication Reconciliation Pharmacy has completed the medication reconciliation. Checked med rec done overnight
[2022-10-27 07:48] LABS: Anion Gap 12 (12-20); Carbon Dioxide 20 mmol/L (22-29); Chloride 114 mmol/L (96-108); Potassium 3.4 mmol/L (3.3-5.1); Sodium 143 mmol/L (135-145)
[2022-10-27 08:08] LABS: Magnesium 1.6 mg/dL (1.6-2.6)
[2022-10-27 08:11] LABS: Estimated Average Glucose 97 mg/dL
[2022-10-27 08:40] LABS: INTERNATIONAL NORM RATIO 1.4 (0.9-1.1); Prothrombin Time 16.4 SEC (10.0-13.1)
--- NOTE | 2022-10-27 08:48 | P.CNGI_ITS ---
History of Present Illness Data of Consult Service Date: 10/27/22 Requesting physician: Joy Juarez Primary Care Provider: Bryan Castrejon MD [facility] Reason for consult: Hepatic encephalopathy and suspected HRS 76 YM with hypertension, hpl-glmfmoz-afzukujex diabetes mellitus seen at [facility] ED on 10/26/22 for evaluation of altered mentation.? Per patient's family, he was noted to have worsening confusion over the last 2-3 days.? Family also noted that patient's stool has become black in color.? He takes Advil for generalized body ache.? History obtained from pt's and daughter who were at the bedside. Pt has had elevated LFTs for the past 2 years and his PCP prescribed Piogli tazone for DM and elevated LFTs. Per [t's family - pt hardly took the medication Family denies known hx of PUD or GI bleeding in the past. Pt had a colonoscopy 2-[address] Llanes (GI in [place]) and polyps were removed. Family is unsure if he had an EGD in the past. Per family patient's PCP informed them that patient's liver function was altered but they are unaware if he has cirrhosis.? Patient is noncompliant with medications.? Family denied significant alcohol use or a history of hepatitis.? Unable to obtain history as patient is confused.?? Labs showed elevated creatinine of 2.2.? Hemoglobin was 10 (Baseline hemoglobin from 2019 was 14, 09/17/22 H & H was 11.5 & 35.9) Pt was started on IV PPI and Octreotide.? Patient admited to using excessive amount of Advil and denied alcohol abuse.? Aspirin and Tylenol was negative.? Hepatitis profile was sent and is pending.?? 10/27/[address] SCAN SHOWED: IMPRESSION: 1.? Limited evaluation due to patient motion artifact. 2.? Cholelithiasis. If there is clinical concern for cholecystitis, this would be better assessed with ultrasound. 3.? Nodular hepatic contour suspicious for cirrhosis. Inadequate assessment for focal lesions without intravenous contrast. Slight intrahepatic biliary ductal dilatation cannot be excluded. 4.? Colonic diverticulosis without diverticulitis. 5.? Trace pelvic free fluid, of uncertain etiology. 6.? Enlarged prostate gland. 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 Mother No problems noted. Surgical History Surgical History History of cardiac catheterization (~04/2015) Social History Social History Household Members: Family Housing: Unknown / Unable to assess Unable to assess alcohol history related to: Unable to respond and Unknown Alcohol intake: never Patient Tobacco Use Status: Former Tobacco user Quit Date: 20 YEARS AGO Meds Allergies Allergy/AdvReac Type Severity Reaction Status Date / Time No Known Allergies Allergy Verified 10/27/22 01:04 [No Known Allergies*] Active Medications: Current Medications Glucose (Glucose Gel 15 Gm Gel..Gram.) 15 gm PO Q15M PRN; Protocol PRN Reason: per Hypoglycemia Standing Ord. Ceftriaxone Sodium 1 gm/ (Sodium Chloride) 50 mls @ 100 mls/hr IV Q24H MEIR Dextrose (D10) 250 mls @ 750 mls/hr IV Q15M PRN; Protocol PRN Reason: per Hypoglycemia Standing Ord. Octreotide Acetate 500 mcg/ (Sodium Chloride) 501 mls @ 50.1 mls/hr IVCONT .Q10H EMIR Insulin Human Lispro (Insulin Lispro 100 Unit/Ml 3 Ml Vial) 0 unit SUBCUT Q6H MEIR; Protocol Last Admin: 10/27/22 06:41 Dose: Not Given Lactulose (Lactulose 20 Gm/30 Ml Solution) 30 gm PO TID MEIR Last Admin: 10/27/22 00:38 Dose: 30 gm Latanoprost (Latanoprost 0.005 % Ophth Anne 2.5 Ml Drops) 1 drop EYE-BOTH BEDTIME MEIR Melatonin (Melatonin 3 Mg Tablet) 6 mg PO BEDTIME PRN PRN Reason: Insomnia Mirtazapine (Mirtazapine 7.5 Mg Tablet) 7.5 mg PO DAILY [facility] Ondansetron HCl (Ondansetron Hcl 4 Mg/2 Ml Vial) 4 mg IVPUSH Q8H PRN PRN Reason: Nausea and Vomiting Pantoprazole Sodium (Pantoprazole Sodium 40 Mg/10 Ml Vial) 40 mg IVPUSH BID@0630,1630 [facility] Rifaximin (Rifaximin 550 Mg Tablet) 550 mg PO BID [facility] Sodium Chloride (0.9 % Sodium Chloride Flush 3 Ml Syringe) 3 ml IVFLUSH QSHIFT [facility] Timolol Maleate (Timolol Maleate 0.5 % Oph Anne 5 Ml Drbtl) 1 drop EYE-BOTH BID [facility] Home Medications Medication Instructions Recorded Confirmed Last Taken Type latanoprost 0.005 % eye drops 1 drp ophthalmic (eye) BEDTIME 01/29/22 10/27/22 Unknown History timolol maleate 0.5 % eye drops 1 drp ophthalmic (eye) BID 01/29/22 10/27/22 Unknown History mirtazapine 15 mg tablet 7.5 mg PO DAILY 10/27/22 10/27/22 Unknown History Physical Exam Vital Signs: Vital Signs: Last Vital Signs Temp 97.8 F 10/27/22 03:51 Pulse 78 10/27/22 03:51 Resp 15 10/27/22 03:51 BP 171/73 H 10/27/22 03:51 Pulse Ox 95 10/27/22 02:00 O2 Del Method Room Air 10/27/22 03:51 BMI result Body Mass Index 29.2 Const: General: no acute distress, confusion, ill appearing and lethargic Nutritional Appearance: overweight Orientation/consciousness: confusion and lethargic Limitations: altered mental status and language barrier HEENT: Head: Yes normal to inspection Ears: hearing grossly normal bilatera lly Eyes: Sclerae: scleral abnormal (jaundice) Pupils: Equal, round and reactive pupils present Neck: Neck: Yes normal visual inspection Chest: Chest palpation & inspection: normal inspection of the chest Resp: Effort & Inspection: normal respiratory effort Auscultation: clear to auscultation bilaterally Cardio: Palpation: normal PMI Rate: regular rate Rhythm: regular rhythm Heart sounds: S1 normal heart sound present, S2 normal heart sound present and no murmurs GI: Palpation (GI): Soft to palpation, nontender and No hepatosplenomegaly present Auscultation: normal bowel sounds Rectal Exam - Male: Yes deferred Skin: General skin exam: no rashes or lesions noted Neuro: General: gait normal, moves all extremities and confusion Cranial nerves: Yes Equal, round and reactive pupils present Psych: Appearance: grossly normal Mental Status: other (lethargic and confu sed) Results Labs 10/27/22 06:37 10/27/22 06:37 Labs: Short CBC 10/26/22 10/27/22 Range/Units 22:22 06:37 WBC 9.1 7.6 (4.8-10.8) X10*3/uL Hgb 10.5 L 9.9 L (14.0-18.0) g/dl Hct 30.0 L 28.3 L (42.0-52.0) % Plt Count 155 L 154 L (160-400) X10*3/uL BMP 10/26/22 10/27/22 22:16 06:37 Sodium 138 143 Potassium 4.7 3.4 D Chloride 112 H 114 H Carbon Dioxide 20 L 20 L BUN 25 H 26 H Creatinine 2.23 H 2.37 H Calcium 8.5 8.7 Liver Function 10/26/22 10/27/22 Range/Units 22:16 06:37 Total Bilirubin 7.7 H 8.3 H (0.0-1.0) mg/dL AST 148 H 131 H (5-37) U/L ALT 70 H 66 H (0-40) U/L Alkaline Phosphatase 320 H 301 H (39-117) U/L Albumin 2.4 L 2.4 L (3.5-5.0) g/dL Urine 10/26/22 Range/Units 21:51 Urine Color Yellow Urine Appearance Clear Urine pH 6.5 (5.0-9.0) Ur Specific [place] <= 1.005 (1.005-1.025) Urine Protein Negative (Neg-Trace) mg/dL Urine Glucose (UA) Negative (Negative) mg/dL Assessment and Plan (1) Acute hepatic encephalopathy: Status: Acute (2) Cirrhosis: Status: Acute (3) Acute GI bleeding: Status: Acute Plan 76 YM with hypertension, itn-qyoxitv-ciyqisphm diabetes mellitus admitted to [facility] on 10/26/22 for evaluation of altered mentation, black stools and elevated LFTs.? Labs showed elevated creatinine of 2.2.? Hemoglobin was 10 (Baseline hemoglobin from 2019 was 14, 09/17/22 H & H was 11.5 & 35.9) Pt was started on IV PPI and Octreotide.? Patient admited to using excessive amount of Advil and denied alcohol abuse.? Aspirin and Tylenol was negative.? Hepatitis profile was sent and is pending.?? ABD CT SCAN SHOWED Cholelithiasis, Nodular hepatic contour suspicious for c irrhosis, slight intrahepatic biliary ductal dilatation cannot be excluded and trace pelvic free fluid. UGI bleeding likely related to PUD due to NSAID use. Pt is at risk for a variceal bleed due to underlying cirrhosis (unclear etiology - likely BOBO since pt has DM and is overweight). Increase in LFTs from baseline is likely due to biliary obstruction due to CBD stone which may have passed since LFTs are improving. RECOMMENDATIONS: 1. Agree with IV PPI, Octreotide and IV antibiotics. 2. Proceed with EGD today for evaluation of UGI bleeding. 3. If abd US is negative, MRCP to check for CBD stone 4. Continue lactulose and Rifaximin for hepatic encephalopathy Time Spent With Patient Time: Total time managing care of this patient today ____ minutes. Procedures Date of Service Date of Service: 11/08/22
[2022-10-27] MEDS: timoloL maleate 0.5 % Oph Sol 5 ML DRBTL 1 DROP EYE-BOTH (09:07)
[2022-10-27] MEDS: Octreotide Acetate 500 MCG in 0.9 % Sodium Chloride 500 ML 50.1 MCG IVCONT (09:10)
[2022-10-27] MEDS: Octreotide Acetate 100 MCG/ML AMPUL 50 MCG IVPUSH (09:11)
[2022-10-27] MEDS: 0.9 % Sodium Chloride Flush 3 ML SYRINGE IVFLUSH ×2 (09:15→17:15)
[2022-10-27] MEDS: rifAXIMin 550 MG TABLET PO (09:16)
[2022-10-27] MEDS: Mirtazapine 7.5 MG TABLET PO (09:17)
--- NOTE | 2022-10-27 11:03 | P.PNIM_ITS ---
Subjective Subjective Date of Service: 10/27/22 Interval History: This history was taken in [place]ian from the patient as well as his son. A little lethargic but arousable. No further melena. No hx EtOH or hepatitis. Not very compliant with meds. Review of Systems Review of Systems: Yes all other systems are reviewed and are negative Physical Exam Vital Signs: Vital Signs: Last Vital Signs Temp 98.6 F 10/27/22 08:00 Pulse 74 10/27/22 08:00 Resp 18 10/27/22 08:00 BP 157/72 H 10/27/22 08:00 Pulse Ox 99 10/27/22 08:00 O2 Del Method Room Air 10/27/22 08:00 BMI result Body Mass Index 29.2 Gen: in no acute distress HEENT: sclera anicteric, moist mucus membranes Neck: supple Lungs: clear to auscultation bilaterally Heart: regular rate and rhythm, 2/6 systolic murmur Abd: soft, non-tender, non-distended Ext: no edema Skin: warm/well-perfused Neuro: alert, asterixis present Psych: appropriate affect Objective Data Active Medications Glucose (Glucose Gel 15 Gm Gel..Gram.) 15 gm PO Q15M PRN; Protocol PRN Reason: per Hypoglycemia Standing Ord. Ceftriaxone Sodium 1 gm/ (Sodium Chloride) 50 mls @ 100 mls/hr IV Q24H [facility] Dextrose (D10) 250 mls @ 750 mls/hr IV Q15M PRN; Protocol PRN Reason: per Hypoglycemia Standing Ord. Octreotide Acetate 500 mcg/ (Sodium Chloride) 501 mls @ 50.1 mls/hr IVCONT .Q10H [facility] Last Admin: 10/27/22 09:10 Dose: 50 mcg/hr, 50.1 mls/hr Documented By: JARETH Insulin Human Lispro (Insulin Lispro 100 Unit/Ml 3 Ml Vial) 0 unit SUBCUT Q6H [facility]; Protocol Last Admin: 10/27/22 06:41 Dose: Not Given Documented By: HELDER Non-Admin Reason: No Insulin Coverage Lactulose (Lactulose 20 Gm/30 Ml Solution) 30 gm PO TID [facility] Last Admin: 10/27/22 09:07 Dose: 30 gm Documented By: JARETH Latanoprost (Latanoprost 0.005 % Ophth Anne 2.5 Ml Drops) 1 drop EYE-BOTH BEDTIME [facility] Melatonin (Melatonin 3 Mg Tablet) 6 mg PO BEDTIME PRN PRN Reason: Insomnia Mirtazapine (Mirtazapine 7.5 Mg Tablet) 7.5 mg PO DAILY [facility] Last Admin: 10/27/22 09:17 Dose: 7.5 mg Documented By: JARETH Ondansetron HCl (Ondansetron Hcl 4 Mg/2 Ml Vial) 4 mg IVPUSH Q8H PRN PRN Reason: Nausea and Vomiting Pantoprazole Sodium (Pantoprazole Sodium 40 Mg/10 Ml Vial) 40 mg IVPUSH BID@0630,1630 [facility] Rifaximin (Rifaximin 550 Mg Tablet) 550 mg PO BID [facility] Last Admin: 10/27/22 09:16 Dose: 550 mg Documented By: JARETH Sodium Chloride (0.9 % Sodium Chloride Flush 3 Ml Syringe) 3 ml IVFLUSH QSHIFT [facility] Last Admin: 10/27/22 09:15 Dose: 3 ml Documented By: JARETH Timolol Maleate (Timolol Maleate 0.5 % Oph Anne 5 Ml Drbtl) 1 drop EYE-BOTH BID [facility] Last Admin: 10/27/22 09:07 Dose: 1 drop Documented By: JARETH Labs 10/27/22 06:37 10/27/22 06:37 Labs: Laboratory Results - last 24 hr 10/26/22 10/26/22 10/26/22 21:51 22:16 22:16 MCV MCH MCHC RDW Plt Count MPV Immature Gran % (Auto) Neut % (Auto) Lymph % (Auto) [place] % (Auto) Eos % (Auto) Baso % (Auto) Lymph # (Auto) [place] # (Auto) Eos # (Auto) Baso # (Auto) Abs Immat Gran (auto) Absolute Neuts (auto) Absolute Nucleated RBC Nucleated RBC % (auto) PT INR Anion Gap 12 Estim Creat Clear Calc 32.2 Estimated GFR 29 POC Glucose Random Glucose 110 Estimat Average Glucose Hemoglobin A1c % Calcium 8.5 Magnesium Total Bilirubin 7.7 H AST 148 H ALT 70 H Alkaline Phosphatase 320 H Ammonia Total Protein 7.4 Albumin 2.4 L TSH 2.84 Urine Color Yellow Urine Appearance Clear Urine pH 6.5 Ur Specific [place] <= 1.005 Urine Protein Negative Urine Glucose (UA) Negative Urine Ketones Negative Urine Blood Negative Urine Nitrite Negative Ur Leukocyte Esterase Negative Stool Occult Blood Salicylates < 5.0 L Acetaminophen < 17 Ethyl Alcohol < 10 10/26/22 10/26/22 10/26/22 22:16 22:22 22:22 MCV 90.4 MCH 31.6 MCHC 35.0 RDW 21.0 H Plt Count 155 L MPV 10.7 Immature Gran % (Auto) 0.3 Neut % (Auto) 66.6 Lymph % (Auto) 24.8 [place] % (Auto) 6.9 Eos % (Auto) 1.1 Baso % (Auto) 0.3 Lymph # (Auto) 2.3 [place] # (Auto) 0.6 Eos # (Auto) 0.1 Baso # (Auto) 0.0 Abs Immat Gran (auto) 0.03 Absolute Neuts (auto) 6.1 Absolute Nucleated RBC 0.000 Nucleated RBC % (auto) 0.0 PT INR Anion Gap Estim Creat Clear Calc Estimated GFR POC Glucose Random Glucose Estimat Average Glucose Hemoglobin A1c % Calcium Magnesium Total Bilirubin AST ALT Alkaline Phosphatase Ammonia 125 H Total Protein Albumin TSH Urine Color Urine Appearance Urine pH Ur Specific [place] Urine Protein Urine Glucose (UA) Urine Ketones Urine Blood Urine Nitrite Ur Leukocyte Esterase Stool Occult Blood POSITIVE Salicylates Acetaminophen Ethyl Alcohol 10/27/22 10/27/22 10/27/22 02:25 06:25 06:37 MCV 91.3 MCH 31.9 MCHC 35.0 RDW 21.4 H Plt Count 154 L MPV 11.1 Immature Gran % (Auto) 0.4 Neut % (Auto) 62.9 Lymph % (Auto) 27.8 [place] % (Auto) 7.6 Eos % (Auto) 0.8 Baso % (Auto) 0.5 Lymph # (Auto) 2.1 [place] # (Auto) 0.6 Eos # (Auto) 0.1 Baso # (Auto) 0.0 Abs Immat Gran (auto) 0.03 Absolute Neuts (auto) 4.8 Absolute Nucleated RBC 0.000 Nucleated RBC % (auto) 0.0 PT INR Anion Gap Estim Creat Clear Calc Estimated GFR POC Glucose 120 H 107 Random Glucose Estimat Average Glucose Hemoglobin A1c % Calcium Magnesium Total Bilirubin AST ALT Alkaline Phosphatase Ammonia Total Protein Albumin TSH Urine Color Urine Appearance Urine pH Ur Specific [place] Urine Protein Urine Glucose (UA) Urine Ketones Urine Blood Urine Nitrite Ur Leukocyte Esterase Stool Occult Blood Salicylates Acetaminophen Ethyl Alcohol 10/27/22 10/27/22 10/27/22 06:37 06:37 07:34 MCV MCH MCHC RDW Plt Count MPV Immature Gran % (Auto) Neut % (Auto) Lymph % (Auto) [place] % (Auto) Eos % (Auto) Baso % (Auto) Lymph # (Auto) [place] # (Auto) Eos # (Auto) Baso # (Auto) Abs Immat Gran (auto) Absolute Neuts (auto) Absolute Nucleated RBC Nucleated RBC % (auto) PT INR Anion Gap 12 Estim Creat Clear Calc 30.3 Estimated GFR 27 POC Glucose 115 Random Glucose 112 Estimat Average Glucose 97 Hemoglobin A1c % 5.0 Calcium 8.7 Magnesium 1.6 Total Bilirubin 8.3 H AST 131 H ALT 66 H Alkaline Phosphatase 301 H Ammonia Total Protein 7.1 Albumin 2.4 L TSH Urine Color Urine Appearance Urine pH Ur Specific [place] Urine Protein Urine Glucose (UA) Urine Ketones Urine Blood Urine Nitrite Ur Leukocyte Esterase Stool Occult Blood Salicylates Acetaminophen Ethyl Alcohol 10/27/22 08:19 MCV MCH MCHC RDW Plt Count MPV Immature Gran % (Auto) Neut % (Auto) Lymph % (Auto) [place] % (Auto) Eos % (Auto) Baso % (Auto) Lymph # (Auto) [place] # (Auto) Eos # (Auto) Baso # (Auto) Abs Immat Gran (auto) Absolute Neuts (auto) Absolute Nucleated RBC Nucleated RBC % (auto) PT 16.4 H INR 1.4 H Anion Gap Estim Creat Clear Calc Estimated GFR POC Glucose Random Glucose Estimat Average Glucose Hemoglobin A1c % Calcium Magnesium Total Bilirubin AST ALT Alkaline Phosphatase Ammonia Total Protein Albumin TSH Urine Color Urine Appearance Urine pH Ur Specific [place] Urine Protein Urine Glucose (UA) Urine Ketones Urine Blood Urine Nitrite Ur Leukocyte Esterase Stool Occult Blood Salicylates Acetaminophen Ethyl Alcohol Assessment and Plan (1) Acute hepatic encephalopathy: Status: Acute Plan d#2 76yo with HTN, CAD, hx NSVT, DM2 brought in with 2-3d of melena + confusion found to have NH3 125 admitted for suspected UGIB + hepatic encephalopathy # hepatic encephalopathy - start rifaximin + lactulose # UGIB - given decomp cirrhosis, start octreotide gtt, continue IV PPI, ceftriaxone d#2, GI consult, T+S, keep NPO # cirrhosis, new diagnosis - hep serologies, GI consult, US # YAO - concern for prerenal vs hepatorenal. start IV fluids, check FENa, consult Nephrology # HTN - appears non compliant with antihypertensives prescribed by accounts receivable clerk # CAD - hold ASA # DM2 - A1c only 5, correct-dose lispro may not be needed # VTE ppx: SCDs # dispo: TBD In my clinical judgment, the patient requires continued inpatient hospi talization for the following reasons: GIB, encephalopathy Time Spent With Patient Time: Total time managing care of this patient today _55___ minutes. Quality Stroke Does the patient have a stroke diagnosis?: No VTE Prior VTE?: No VTE Risk Level:: Medical - moderate - high VTE Device Contraindication: N/A - Device Ordered VTE Drug Contraindication: Treatment Not Indicated
[2022-10-27 11:29] LABS: Glucose, Whole Blood 83 mg/dL (60-115)
[2022-10-27] MEDS: 0.9 % Sodium Chloride 1,000 ML 125 ML IVCONT ×2 (12:38→19:37)
--- NOTE | 2022-10-27 12:49 | P.CONNP_ITS ---
History of Present Illness Reason for Consult Consult date: 11/28/22 Reason for consult: YAO Chief Complaint Chief complaint: Altered mentation History of Present Illness Narrative: 76 YM with hypertension, [id number] diabetes mellitus seen at [facility] on 10/26/22 for evaluation of altered mentation.? Per patient's family, he was noted to have worsening confusion over the last 2-3 days.? Family also noted that patient's stool has become black in color.? He takes Advil for generalized body ache.? Per family patient's PCP informed them that patient's liver function was altered but they are unaware if he has cirrhosis.? Patient is noncompliant with medications.? Family denied significant alcohol use or a history of hepatitis.? Unable to obtain history as patient is confused.?? Labs showed elevated creatinine of 2.2.? Hemoglobin was 10 (Baseline hemoglobin from 2019 was 14) Pt was started on PPI.? Patient admited to using excessive amount of Advil and denied alcohol abuse.? Aspirin and Tylenol was negative.? Hepatitis profile was sent and is pending.?? No history of any renal disease in the past. Old records were reviewed. Baseline creatinine is somewhere between 1.1-1.4 mg/dL. Review of Systems Review of Systems Yes Unobtainable due to mental status PMFSH Past Medical History Medical History Ascending aorta dilatation Atherosclerotic cardiovascular disease Essential hypertension Ischemic stroke NSVT (nonsustained ventricular tachycardia) Type 2 diabetes mellitus with unspecified complications Family History Family History Father No problems noted. Mother No problems noted. Surgical History Surgical History History of cardiac catheterization (~04/2015) Social History Social History Household Members: Family Housing: Unknown / Unable to assess Unable to assess alcohol history related to: Unable to respond and Unknown Alcohol intake: never Patient Tobacco Use Status: Former Tobacco user Quit Date: 20 YEARS AGO Meds Allergies Allergy/AdvReac Type Severity Reaction Status Date / Time No Known Allergies Allergy Verified 10/27/22 01:04 [No Known Allergies*] Active Medications: Current Medications Glucose (Glucose Gel 15 Gm Gel..Gram.) 15 gm PO Q15M PRN; Protocol PRN Reason: per Hypoglycemia Standing Ord. Ceftriaxone Sodium 1 gm/ (Sodium Chloride) 50 mls @ 100 mls/hr IV Q24H [facility] Dextrose (D10) 250 mls @ 750 mls/hr IV Q15M PRN; Protocol PRN Reason: per Hypoglycemia Standing Ord. Octreotide Acetate 500 mcg/ (Sodium Chloride) 501 mls @ 50.1 mls/hr IVCONT .Q10H [facility] Last Admin: 10/27/22 09:10 Dose: 50 mcg/hr, 50.1 mls/hr Sodium Chloride (Ns) 1,000 mls @ 125 mls/hr IVCONT .Q8H [facility] Last Admin: 10/27/22 12:38 Dose: 125 mls/hr Insulin Human Lispro (Insulin Lispro 100 Unit/Ml 3 Ml Vial) 0 unit SUBCUT Q6H [facility]; Protocol Last Admin: 10/27/22 12:05 Dose: Not Given Lactulose (Lactulose 20 Gm/30 Ml Solution) 30 gm PO TID [facility] Last Admin: 10/27/22 09:07 Dose: 30 gm Latanoprost (Latanoprost 0.005 % Ophth Anne 2.5 Ml Drops) 1 drop EYE-BOTH BEDTIME [facility] Melatonin (Melatonin 3 Mg Tablet) 6 mg PO BEDTIME PRN PRN Reason: Insomnia Mirtazapine (Mirtazapine 7.5 Mg Tablet) 7.5 mg PO DAILY [facility] Last Admin: 10/27/22 09:17 Dose: 7.5 mg Ondansetron HCl (Ondansetron Hcl 4 Mg/2 Ml Vial) 4 mg IVPUSH Q8H PRN PRN Reason: Nausea and Vomiting Pantoprazole Sodium (Pantoprazole Sodium 40 Mg/10 Ml Vial) 40 mg IVPUSH BID@0630,1630 [facility] Rifaximin (Rifaximin 550 Mg Tablet) 550 mg PO BID [facility] Last Admin: 10/27/22 09:16 Dose: 550 mg Sodium Chloride (0.9 % Sodium Chloride Flush 3 Ml Syringe) 3 ml IVFLUSH QSHIFT [facility] Last Admin: 10/27/22 09:15 Dose: 3 ml Timolol Maleate (Timolol Maleate 0.5 % Oph Anne 5 Ml Drbtl) 1 drop EYE-BOTH BID [facility] Last Admin: 10/27/22 09:07 Dose: 1 drop Home Medications Medication Instructions Recorded Confirmed Last Taken Type latanoprost 0.005 % eye drops 1 drp ophthalmic (eye) BEDTIME 01/29/22 10/27/22 Unknown History timolol maleate 0.5 % eye drops 1 drp ophthalmic (eye) BID 01/29/22 10/27/22 Unknown History mirtazapine 15 mg tablet 7.5 mg PO DAILY 10/27/22 10/27/22 Unknown History Physical Exam Vital Signs: Last Vital Signs Temp 98.6 F 10/27/22 08:00 Pulse 74 10/27/22 08:00 Resp 18 10/27/22 08:00 BP 157/72 H 10/27/22 08:00 Pulse Ox 99 10/27/22 08:00 O2 Del Method Room Air 10/27/22 08:00 BMI result Body Mass Index 29.2 Comfortable Awake. Not in distress. Confused. Neck is supple. No JVD Lung: Air entry equal. Few rhonchi Heart: S1,S2, normal. No rub Abd: Soft. BS +. No tenderness. No rebound NS : Alert. . Has asterexis Ext: No edema.. No rash. Results Lab Results 10/27/22 06:37 10/27/22 06:37 Lab results: Chemistry 10/26/22 10/27/22 22:16 06:37 Sodium 138 143 Potassium 4.7 3.4 D Carbon Dioxide 20 L 20 L BUN 25 H 26 H Creatinine 2.23 H 2.37 H Calcium 8.5 8.7 Hematology 10/26/22 10/27/22 22:22 06:37 WBC 9.1 7.6 Hgb 10.5 L 9.9 L Plt Count 155 L 154 L Urinalysis 10/26/22 21:51 Urine Color Yellow Urine Appearance Clear Urine pH 6.5 Ur Specific [place] <= 1.005 Urine Protein Negative Urine Glucose (UA) Negative Urine Ketones Negative Urine Blood Negative Urine Nitrite Negative Ur Leukocyte Esterase Negative Assessment and Plan (1) Acute kidney injury: Status: Acute Plan 76-year-old man with acute kidney injury in a setting of liver failure. He has no known history of kidney disease. Baseline creatinine is around 1.1- 1.4 mg/dL. At present he sustained acute kidney injury. The urine analysis is benign and no evidence of any active glomerular or interstitial disease. Obstructive uropathy seems unlikely based on the recent imaging studies. I suspect he has renal hypoperfusion and could progress to ischemic ATN. Once this is ruled out other possibility would include hepatorenal syndrome which is a diagnosis by exclusion. Recommendation Check urine for creatinine and protein. Check urine sodium Watch urine output closely. Avoid hypotension. Cautious IV hydration with normal saline at 50 cc/hour and keep intake more than the output. Check SPEP Concur with the current management for hepatic encephalopathy. Continue with rifaximin and lactulose. Mild hypokalemia due to GI losses. Replace potassium and maintain potassium more than 4 millimoles to curtail ammonia daniel Await hepatitis serologies. No absolute indication for dialysis yet. Discussed with family. We will follow closely with the team. Time Spent With Patient Time: Total time managing care of this patient today ____ minutes. Procedures Date of Service Date of Service: 11/28/22
[2022-10-27 13:13] LABS: Hematocrit 29.9 % (42.0-52.0); Hemoglobin 10.3 g/dl (14.0-18.0); Mean Corpuscular HGB Conc 34.4 g/dl (31.0-36.0); Mean Corpuscular Hemoglobin 31.6 pg (27.0-33.0); Mean Corpuscular Volume 91.7 fL (80.0-98.0); Mean Platelet Volume 10.5 fL (9.4-12.4); Platelet Count 149 X10*3/uL (160-400); Red Blood Count 3.26 X10*6/uL (4.60-5.80); Red Cell Distribution Width 21.3 % (11.0-16.0); White Blood Count 7.2 X10*3/uL (4.8-10.8)
[2022-10-27 14:43] LABS: Creatinine Urine 30.09 mg/dL; Total Protein Urine Random < 7 mg/dL (<12)
[2022-10-27 14:59] LABS: Glucose, Whole Blood 116 mg/dL (60-115)
--- NOTE | 2022-10-27 15:34 | HO.ANESPROP2 ---
HPI - Anesthesia Eval Consult details Narrative: GI bleed PMFSH Active Problems Active Problems: All Active Problems (Updated 10/27/22 @ 13:55 by Cole Ramesh MD) Acute GI bleeding (Acute) Cirrhosis (Acute) Acute kidney injury (Acute) Acute hepatic encephalopathy (Acute) NSVT (nonsustained ventricular tachycardia) (Acute) Essential hypertension (Acute) Ascending aorta dilatation (Acute) Ischemic stroke (Acute) Atherosclerotic cardiovascular disease (Acute) Past Medical History Medical History Ascending aorta dilatation Atherosclerotic cardiovascular disease Essential hypertension Ischemic stroke NSVT (nonsustained ventricular tachycardia) Type 2 diabetes mellitus with unspecified complications Family History Family History Father No problems noted. Mother No problems noted. Family history of problems with anesthesia: No Surgical History Surgical History History of cardiac catheterization (~04/2015) History of Problems with Anesthesia: No Social History Social History Household Members: Family Housing: Unknown / Unable to assess Unable to assess alcohol history related to: Unable to respond and Unknown Alcohol intake: never Patient Tobacco Use Status: Former Tobacco user Quit Date: 20 YEARS AGO Meds Allergies Allergy/AdvReac Type Severity Reaction Status Date / Time No Known Allergies Allergy Verified 10/27/22 01:04 [No Known Allergies*] Active Medications: Current Medications Glucose (Glucose Gel 15 Gm Gel..Gram.) 15 gm PO Q15M PRN; Protocol PRN Reason: per Hypoglycemia Standing Ord. Ceftriaxone Sodium 1 gm/ (Sodium Chloride) 50 mls @ 100 mls/hr IV Q24H [facility] Dextrose (D10) 250 mls @ 750 mls/hr IV Q15M PRN; Protocol PRN Reason: per Hypoglycemia Standing Ord. Octreotide Acetate 500 mcg/ (Sodium Chloride) 501 mls @ 50.1 mls/hr IVCONT .Q10H [facility] Last Admin: 10/27/22 09:10 Dose: 50 mcg/hr, 50.1 mls/hr Sodium Chloride (Ns) 1,000 mls @ 125 mls/hr IVCONT .Q8H [facility] Last Admin: 10/27/22 12:38 Dose: 125 mls/hr Insulin Human Lispro (Insulin Lispro 100 Unit/Ml 3 Ml Vial) 0 unit SUBCUT Q6H [facility]; Protocol Last Admin: 10/27/22 12:05 Dose: Not Given Lactulose (Lactulose 20 Gm/30 Ml Solution) 30 gm PO TID [facility] Last Admin: 10/27/22 09:07 Dose: 30 gm Latanoprost (Latanoprost 0.005 % Ophth Anne 2.5 Ml Drops) 1 drop EYE-BOTH BEDTIME [facility] Melatonin (Melatonin 3 Mg Tablet) 6 mg PO BEDTIME PRN PRN Reason: Insomnia Mirtazapine (Mirtazapine 7.5 Mg Tablet) 7.5 mg PO DAILY [facility] Last Admin: 10/27/22 09:17 Dose: 7.5 mg Ondansetron HCl (Ondansetron Hcl 4 Mg/2 Ml Vial) 4 mg IVPUSH Q8H PRN PRN Reason: Nausea and Vomiting Pantoprazole Sodium (Pantoprazole Sodium 40 Mg/10 Ml Vial) 40 mg IVPUSH BID@0630,1630 [facility] Rifaximin (Rifaximin 550 Mg Tablet) 550 mg PO BID [facility] Last Admin: 10/27/22 09:16 Dose: 550 mg Sodium Chloride (0.9 % Sodium Chloride Flush 3 Ml Syringe) 3 ml IVFLUSH QSHIFT [facility] Last Admin: 10/27/22 09:15 Dose: 3 ml Timolol Maleate (Timolol Maleate 0.5 % Oph Anne 5 Ml Drbtl) 1 drop EYE-BOTH BID [facility] Last Admin: 10/27/22 09:07 Dose: 1 drop Home Medications Medication Instructions Recorded Confirmed Last Taken Type metformin 500 mg tablet 500 mg PO BID 05/25/20 10/27/22 Unknown History latanoprost 0.005 % eye drops 1 drp ophthalmic (eye) BEDTIME 01/29/22 10/27/22 Unknown History pioglitazone 30 mg tablet 30 mg PO DAILY 01/29/22 10/27/22 Unknown History timolol maleate 0.5 % eye drops 1 drp ophthalmic (eye) BID 01/29/22 10/27/22 Unknown History aspirin 81 mg tablet,delayed 81 mg PO DAILY 10/16/22 10/27/22 Unknown History release (Adult Aspirin Regimen) mirtazapine 15 mg tablet 7.5 mg PO DAILY 10/27/22 10/27/22 Unknown History Exam Exam Date and Time: October 27, 2022 1534 Height,Weight and Vital Signs: Height 5 ft 9 in Weight 89.811 kg Last Vital Signs Temp 98.2 F 10/27/22 14:13 Pulse 85 10/27/22 14:13 Resp 18 10/27/22 14:13 BP 175/83 H 10/27/22 14:13 Pulse Ox 96 10/27/22 14:13 O2 Del Method Room Air 10/27/22 14:13 Pertinent Lab Results Pertinent Lab Results: Laboratory Tests 10/26/22 10/26/22 10/26/22 21:51 22:16 22:16 WBC RBC Hgb Hct MCV MCH MCHC RDW Plt Count MPV Immature Gran % (Auto) Neut % (Auto) Lymph % (Auto) [place] % (Auto) Eos % (Auto) Baso % (Auto) Lymph # (Auto) [place] # (Auto) Eos # (Auto) Baso # (Auto) Abs Immat Gran (auto) Absolute Neuts (auto) Absolute Nucleated RBC Nucleated RBC % (auto) PT INR Sodium 138 Potassium 4.7 Chloride 112 H Carbon Dioxide 20 L Anion Gap 12 BUN 25 H Creatinine 2.23 H Estim Creat Clear Calc 32.2 Estimated GFR 29 POC Glucose Random Glucose 110 Estimat Average Glucose Hemoglobin A1c % Calcium 8.5 Magnesium Total Bilirubin 7.7 H AST 148 H ALT 70 H Alkaline Phosphatase 320 H Ammonia Total Protein 7.4 Albumin 2.4 L TSH 2.84 Urine Color Yellow Urine Appearance Clear Urine pH 6.5 Ur Specific [place] <= 1.005 Urine Protein Negative Urine Glucose (UA) Negative Urine Ketones Negative Urine Blood Negative Urine Nitrite Negative Ur Leukocyte Esterase Negative U Random Total Protein Ur Random Sodium Urine Creatinine Stool Occult Blood Salicylates < 5.0 L Acetaminophen < 17 Ethyl Alcohol < 10 10/26/22 10/26/22 10/26/22 22:16 22:22 22:22 WBC 9.1 RBC 3.32 L Hgb 10.5 L Hct 30.0 L MCV 90.4 MCH 31.6 MCHC 35.0 RDW 21.0 H Plt Count 155 L MPV 10.7 Immature Gran % (Auto) 0.3 Neut % (Auto) 66.6 Lymph % (Auto) 24.8 [place] % (Auto) 6.9 Eos % (Auto) 1.1 Baso % (Auto) 0.3 Lymph # (Auto) 2.3 [place] # (Auto) 0.6 Eos # (Auto) 0.1 Baso # (Auto) 0.0 Abs Immat Gran (auto) 0.03 Absolute Neuts (auto) 6.1 Absolute Nucleated RBC 0.000 Nucleated RBC % (auto) 0.0 PT INR Sodium Potassium Chloride Carbon Dioxide Anion Gap BUN Creatinine Estim Creat Clear Calc Estimated GFR POC Glucose Random Glucose Estimat Average Glucose Hemoglobin A1c % Calcium Magnesium Total Bilirubin AST ALT Alkaline Phosphatase Ammonia 125 H Total Protein Albumin TSH Urine Color Urine Appearance Urine pH Ur Specific [place] Urine Protein Urine Glucose (UA) Urine Ketones Urine Blood Urine Nitrite Ur Leukocyte Esterase U Random Total Protein Ur Random Sodium Urine Creatinine Stool Occult Blood POSITIVE Salicylates Acetaminophen Ethyl Alcohol 10/27/22 10/27/22 10/27/22 02:25 06:25 06:37 WBC 7.6 RBC 3.10 L Hgb 9.9 L Hct 28.3 L MCV 91.3 MCH 31.9 MCHC 35.0 RDW 21.4 H Plt Count 154 L MPV 11.1 Immature Gran % (Auto) 0.4 Neut % (Auto) 62.9 Lymph % (Auto) 27.8 [place] % (Auto) 7.6 Eos % (Auto) 0.8 Baso % (Auto) 0.5 Lymph # (Auto) 2.1 [place] # (Auto) 0.6 Eos # (Auto) 0.1 Baso # (Auto) 0.0 Abs Immat Gran (auto) 0.03 Absolute Neuts (auto) 4.8 Absolute Nucleated RBC 0.000 Nucleated RBC % (auto) 0.0 PT INR Sodium Potassium Chloride Carbon Dioxide Anion Gap BUN Creatinine Estim Creat Clear Calc Estimated GFR POC Glucose 120 H 107 Random Glucose Estimat Average Glucose Hemoglobin A1c % Calcium Magnesium Total Bilirubin AST ALT Alkaline Phosphatase Ammonia Total Protein Albumin TSH Urine Color Urine Appearance Urine pH Ur Specific [place] Urine Protein Urine Glucose (UA) Urine Ketones Urine Blood Urine Nitrite Ur Leukocyte Esterase U Random Total Protein Ur Random Sodium Urine Creatinine Stool Occult Blood Salicylates Acetaminophen Ethyl Alcohol 10/27/22 10/27/22 10/27/22 06:37 06:37 07:34 WBC RBC Hgb Hct MCV MCH MCHC RDW Plt Count MPV Immature Gran % (Auto) Neut % (Auto) Lymph % (Auto) [place] % (Auto) Eos % (Auto) Baso % (Auto) Lymph # (Auto) [place] # (Auto) Eos # (Auto) Baso # (Auto) Abs Immat Gran (auto) Absolute Neuts (auto) Absolute Nucleated RBC Nucleated RBC % (auto) PT INR Sodium 143 Potassium 3.4 D Chloride 114 H Carbon Dioxide 20 L Anion Gap 12 BUN 26 H Creatinine 2.37 H Estim Creat Clear Calc 30.3 Estimated GFR 27 POC Glucose 115 Random Glucose 112 Estimat Average Glucose 97 Hemoglobin A1c % 5.0 Calcium 8.7 Magnesium 1.6 Total Bilirubin 8.3 H AST 131 H ALT 66 H Alkaline Phosphatase 301 H Ammonia Total Protein 7.1 Albumin 2.4 L TSH Urine Color Urine Appearance Urine pH Ur Specific [place] Urine Protein Urine Glucose (UA) Urine Ketones Urine Blood Urine Nitrite Ur Leukocyte Esterase U Random Total Protein Ur Random Sodium Urine Creatinine Stool Occult Blood Salicylates Acetaminophen Ethyl Alcohol 10/27/22 10/27/22 10/27/22 08:19 11:25 13:01 WBC 7.2 RBC 3.26 L Hgb 10.3 L Hct 29.9 L MCV 91.7 MCH 31.6 MCHC 34.4 RDW 21.3 H Plt Count 149 L MPV 10.5 Immature Gran % (Auto) Neut % (Auto) Lymph % (Auto) [place] % (Auto) Eos % (Auto) Baso % (Auto) Lymph # (Auto) [place] # (Auto) Eos # (Auto) Baso # (Auto) Abs Immat Gran (auto) Absolute Neuts (auto) Absolute Nucleated RBC 0.000 Nucleated RBC % (auto) 0.0 PT 16.4 H INR 1.4 H Sodium Potassium Chloride Carbon Dioxide Anion Gap BUN Creatinine Estim Creat Clear Calc Estimated GFR POC Glucose 83 Random Glucose Estimat Average Glucose Hemoglobin A1c % Calcium Magnesium Total Bilirubin AST ALT Alkaline Phosphatase Ammonia Total Protein Albumin TSH Urine Color Urine Appearance Urine pH Ur Specific [place] Urine Protein Urine Glucose (UA) Urine Ketones Urine Blood Urine Nitrite Ur Leukocyte Esterase U Random Total Protein Ur Random Sodium Urine Creatinine Stool Occult Blood Salicylates Acetaminophen Ethyl Alcohol 10/27/22 10/27/22 10/27/22 14:08 14:08 14:50 WBC RBC Hgb Hct MCV MCH MCHC RDW Plt Count MPV Immature Gran % (Auto) Neut % (Auto) Lymph % (Auto) [place] % (Auto) Eos % (Auto) Baso % (Auto) Lymph # (Auto) [place] # (Auto) Eos # (Auto) Baso # (Auto) Abs Immat Gran (auto) Absolute Neuts (auto) Absolute Nucleated RBC Nucleated RBC % (auto) PT INR Sodium Potassium Chloride Carbon Dioxide Anion Gap BUN Creatinine Estim Creat Clear Calc Estimated GFR POC Glucose 116 H Random Glucose Estimat Average Glucose Hemoglobin A1c % Calcium Magnesium Total Bilirubin AST ALT Alkaline Phosphatase Ammonia Total Protein Albumin TSH Urine Color Urine Appearance Urine pH Ur Specific [place] Urine Protein Urine Glucose (UA) Urine Ketones Urine Blood Urine Nitrite Ur Leukocyte Esterase U Random Total Protein < 7 Ur Random Sodium 101.0 Urine Creatinine 30.09 Stool Occult Blood Salicylates Acetaminophen Ethyl Alcohol Airway Mallampati Class: II TM Dist: >3cm Neck ROM: Full Loose/Missing/Broken Teeth: No Heart: RRR Lungs: cta Assessment and Plan Assessment Anesthesia Assessment: Anesthesia Plan Discussed and Chart Reviewed Final Anesthetic Review Family History of Problems with Anesthesia: No History of Problems with Anesthesia: No NPO: Yes ASA Class: III and Emergency Final Preanesthetic Review: No Changes in Pt Med Stat, Meds/Allgs Chart Reviewed, Consent Obtained/Reviewed and Anes Risks/Benef Reviewed Patient Risk: High Procedure Risk: Low Anesthetic Plan Anesthetic Plan: MAC: Disposition: Standard PACU
--- NOTE | 2022-10-27 16:10 | W.PM.OPN ---
Operative Note Operative Note Date of Service: 10/27/22 Narrative: FLEXIBLE TRANSORAL UPPER GASTROINTESTINAL ENDOSCOPY WITH BIOPSIES Pre-op diagnosis: GI Bleeding, cirrhosis Post-op diagnosis: Esophageal varices, gastric varix, Gastric and duodenal erosions, portal hypertensive gastropathy Endoscopist:? Cole Ramesh MD Anesthesia:?MAC Consent: Indications for the procedure and potential complications of bleeding, perforation, reaction to medications and missed diagnosis were discussed with the patient and informed consent was obtained. Instrument: Olympus GIF H 190 mid size upper endoscope Monitoring: Vital signs and clinical assessment, continuous EKG monitoring, Pulse oximetry, Carbon Dioxide monitoring and blood pressure monitoring were done throughout the procedure. Procedure: The patient was placed in the left lateral decubitis position and pre-procedure medications were administered and a bite block was placed. The endoscope was inserted into the mouth and advanced under direct vision to the third part of duodenum. A careful inspection was made as the upper endoscope was withdrawn including a retroflexed examination of the proximal stomach; Findings and interventions are described below. Findings: Larynx: Normal Esophagus: Two column of grade 2 varices without stigmata of recent bleeding from 36 to 40 cms. GE junction at 40 cms. Stomach: Moderate diffuse gastric erythema with mosaic appearance of the stomach consistent with portal hypertensive gastropathy. Multiple chronic appearing 4-5 mm erosions in the gastric antrum. Antral biopsies were obtained to check for H pylori. A large non-bleeding 3 cms fundal varix on retroflexed examination of the cardia. Duodenum: A few 4-5 mm erosions in the bulb and normal descending duodenum Intervention: Biopsies as noted above Impression and Post Procedure Diagnosis: Endoscopy Findings: ESOPHAGUS: Grade 2 esophageal varices without stigmata of recent bleeding STOMACH: Multiple chronic appearing antral erosions - likely related to NSAID use. A large 3 cms varix with in the gastric fundus. DUODENUM: A few 4-5 mm erosions in the duodenal bulb No blood or active bleeding noted in the UGI tract during EGD. UGI bleeding likely from gastric and duodenal erosions versus gastric varix. Plan: Continue IV PPI and octreotide infusion. Transfer to tertiary care center for evaluation of gastric varix with doppler US and treatment with cyanoacrylate glue. Above findings and plan of care were reviewed with the patient's .
[2022-10-27 17:53] LABS: Glucose, Whole Blood 105 mg/dL (60-115)
--- NOTE | 2022-10-27 18:17 | P.DS_ITS ---
DS: Providers Provider Date of Service: 10/27/22 Date of admission: 10/27/22 01:17 Date of discharge: 10/27/22 Primary care physician: Bryan Castrejon MD Consults: 10/27/22 01:18 Consult to Gastroenterology Routine Consulting Provider: Cole Ramesh Reason for consultation: Hepatic encephalopathy 10/27/22 07:52 Consult to Nephrology Routine Consulting Provider: [facility] Reason for consultation: YAO, ?hepatorenal 10/27/22 18:05 Consult for Sitter Routine Reason for consultation: impulsivity DS: Transfer Hospital Acceptance Reason for Transfer: higher level of GI care DS: Diagnosis Discharge Diagnosis (1) Acute hepatic encephalopathy: Status: Acute (2) Acute GI bleeding: Status: Acute (3) Acute kidney injury: Status: Acute (4) Decompensated hepatic cirrhosis: Status: Acute (5) Gastric varix: Status: Acute DS: Summary Hospital Course Hospital Course: from the admission H+P by hospitalist Hernan Juarez, 10/26/22: This is a 76-year-old male with pertinent history of essential hypertension, tlt-ofspftl-dfckosbos diabetes mellitus who was brought to the emergency depar tment for evaluation of altered mentation.? As per the family, patient has been confused over the last 2-3 days but confusion was worse on the day of presentation.? Family also noticed that patient's stool has become black in color.? He takes Advil for generalized body ache.? Family does note that patient's PCP told that patient's liver function was altered but does not know if he has a history of cirrhosis.? Patient is noncompliant with medications.? No significant alcohol use as per the family.? No history of hepatitis.? Unable to obtain history as patient is confused.? Unable to obtain review of systems. In the emergency department, ammonia was found to be elevated and stool occult blood noted to be positive Mr Coleman is a 76yo with HTN [though not apparently compliant with antihyperte nsives], CAD s/p PCI of 1st marginal in 2015 for STEMI, hx ischemic CVA with full recovery hx], NSVT, DM2 [though A1c only 5] recently started on pioglitazone for a liver problem, presumably BOBO. He was brought in with 2-3d of melena + confusion. He was found to have NH3 level of 125. FOBT was positive. He was admitted for suspected UGIB triggering acute hepatic encephalopathy. He was admitted to the [facility] and placed on octreotide IV infusion along with IV PPI and ceftriaxone. He was given rifaximin and lactulose. GI was consulted and he underwent an EGD on 10/27/[address] Cole Ramesh. There were grade II esophageal varices without stigmata of recent bleeding. In the stomach, there were multiple chronic-appearing antral erosions thought due to NSAID use. There were some erosions in the duodenal bulb. Notably, there was a large 3 cm varix in the gastric fundus. There was no active bleeding during the EGD. Dr Ramesh recommended transfer to a tertiary care center for evaluation of the gastric varix with doppler US and treatment with cyanoacrylate glue. As for cirrhosis, chronic hepatitis serologies are pending. He does not have a history of alcohol abuse. Presumptive etiology is BOBO cirrhosis. He was also noted to have YAO with SCr 2.37, compared to baseline 1.1-1.4. Urinary sediment was inactive. Imaging did not demonstrate obstructive uropathy. Suspected prerenal YAO due to hypoperfusion versus hepatorenal syndrome. He was placed on IV fluid hydration. Status at Discharge Functional status at discharge: bed bound Time Spent with Patient Time attestation: Total time managing care of this patient today __40__ minutes. Discharge coordination time: Greater than 30 minutes Quality: Safe Use of Opioids Does Pt have an Active Cancer Diagnosis on the Problem List?: No Quality: Stroke Does the patient have a stroke diagnosis?: No Physical Exam Vital Signs: Vital Signs: Last Vital Signs Temp 98.0 F 10/27/22 16:42 Pulse 81 10/27/22 16:42 Resp 20 10/27/22 16:42 BP 175/84 H 10/27/22 16:42 Pulse Ox 97 10/27/22 16:42 O2 Del Method Room Air 10/27/22 16:42 BMI result Body Mass Index 29.2 Gen: confused HEENT: sclera icteric, moist mucus membranes Neck: supple Lungs: clear to auscultation bilaterally Heart: regular rate and rhythm, no murmurs Abd: soft, non-tender, non-distended Ext: no edema Skin: warm/well-perfused, jaundiced Neuro: delirious, asterixis present Psych: impaired insight DS: Data Data Completed and Pending Completed studies during hospitalization [Text1]: ITS Impressions Head CT 10/27/22 00:10 IMPRESSION: Some limitation from motion. No acute finding. Abdomen/Pelvis CT 10/27/22 00:29 IMPRESSION: 1. Limited evaluation due to patient motion artifact. 2. Cholelithiasis. If there is clinical concern for cholecystitis, this would be better assessed with ultrasound. 3. Nodular hepatic contour suspicious for cirrhosis. Inadequate assessment for focal lesions without intravenous contrast. Slight intrahepatic biliary ductal dilatation cannot be excluded. 4. Colonic diverticulosis without diverticulitis. 5. Trace pelvic free fluid, of uncertain etiology. 6. Enlarged prostate gland. Laboratory Tests 10/26/22 10/26/22 10/26/22 21:51 22:16 22:16 WBC RBC Hgb Hct MCV MCH MCHC RDW Plt Count MPV Immature Gran % (Auto) Neut % (Auto) Lymph % (Auto) [place] % (Auto) Eos % (Auto) Baso % (Auto) Lymph # (Auto) [place] # (Auto) Eos # (Auto) Baso # (Auto) Abs Immat Gran (auto) Absolute Neuts (auto) Absolute Nucleated RBC Nucleated RBC % (auto) PT INR Sodium 138 Potassium 4.7 Chloride 112 H Carbon Dioxide 20 L Anion Gap 12 BUN 25 H Creatinine 2.23 H Estim Creat Clear Calc 32.2 Estimated GFR 29 POC Glucose Random Glucose 110 Estimat Average Glucose Hemoglobin A1c % Calcium 8.5 Magnesium Total Bilirubin 7.7 H AST 148 H ALT 70 H Alkaline Phosphatase 320 H Ammonia Total Protein 7.4 Albumin 2.4 L TSH 2.84 Urine Color Yellow Urine Appearance Clear Urine pH 6.5 Ur Specific [place] <= 1.005 Urine Protein Negative Urine Glucose (UA) Negative Urine Ketones Negative Urine Blood Negative Urine Nitrite Negative Ur Leukocyte Esterase Negative U Random Total Protein Ur Random Sodium Urine Creatinine Stool Occult Blood Salicylates < 5.0 L Acetaminophen < 17 Ethyl Alcohol < 10 10/26/22 10/26/22 10/26/22 22:16 22:22 22:22 WBC 9.1 RBC 3.32 L Hgb 10.5 L Hct 30.0 L MCV 90.4 MCH 31.6 MCHC 35.0 RDW 21.0 H Plt Count 155 L MPV 10.7 Immature Gran % (Auto) 0.3 Neut % (Auto) 66.6 Lymph % (Auto) 24.8 [place] % (Auto) 6.9 Eos % (Auto) 1.1 Baso % (Auto) 0.3 Lymph # (Auto) 2.3 [place] # (Auto) 0.6 Eos # (Auto) 0.1 Baso # (Auto) 0.0 Abs Immat Gran (auto) 0.03 Absolute Neuts (auto) 6.1 Absolute Nucleated RBC 0.000 Nucleated RBC % (auto) 0.0 PT INR Sodium Potassium Chloride Carbon Dioxide Anion Gap BUN Creatinine Estim Creat Clear Calc Estimated GFR POC Glucose Random Glucose Estimat Average Glucose Hemoglobin A1c % Calcium Magnesium Total Bilirubin AST ALT Alkaline Phosphatase Ammonia 125 H Total Protein Albumin TSH Urine Color Urine Appearance Urine pH Ur Specific [place] Urine Protein Urine Glucose (UA) Urine Ketones Urine Blood Urine Nitrite Ur Leukocyte Esterase U Random Total Protein Ur Random Sodium Urine Creatinine Stool Occult Blood POSITIVE Salicylates Acetaminophen Ethyl Alcohol 10/27/22 10/27/22 10/27/22 02:25 06:25 06:37 WBC 7.6 RBC 3.10 L Hgb 9.9 L Hct 28.3 L MCV 91.3 MCH 31.9 MCHC 35.0 RDW 21.4 H Plt Count 154 L MPV 11.1 Immature Gran % (Auto) 0.4 Neut % (Auto) 62.9 Lymph % (Auto) 27.8 [place] % (Auto) 7.6 Eos % (Auto) 0.8 Baso % (Auto) 0.5 Lymph # (Auto) 2.1 [place] # (Auto) 0.6 Eos # (Auto) 0.1 Baso # (Auto) 0.0 Abs Immat Gran (auto) 0.03 Absolute Neuts (auto) 4.8 Absolute Nucleated RBC 0.000 Nucleated RBC % (auto) 0.0 PT INR Sodium Potassium Chloride Carbon Dioxide Anion Gap BUN Creatinine Estim Creat Clear Calc Estimated GFR POC Glucose 120 H 107 Random Glucose Estimat Average Glucose Hemoglobin A1c % Calcium Magnesium Total Bilirubin AST ALT Alkaline Phosphatase Ammonia Total Protein Albumin TSH Urine Color Urine Appearance Urine pH Ur Specific [place] Urine Protein Urine Glucose (UA) Urine Ketones Urine Blood Urine Nitrite Ur Leukocyte Esterase U Random Total Protein Ur Random Sodium Urine Creatinine Stool Occult Blood Salicylates Acetaminophen Ethyl Alcohol 10/27/22 10/27/22 10/27/22 06:37 06:37 07:34 WBC RBC Hgb Hct MCV MCH MCHC RDW Plt Count MPV Immature Gran % (Auto) Neut % (Auto) Lymph % (Auto) [place] % (Auto) Eos % (Auto) Baso % (Auto) Lymph # (Auto) [place] # (Auto) Eos # (Auto) Baso # (Auto) Abs Immat Gran (auto) Absolute Neuts (auto) Absolute Nucleated RBC Nucleated RBC % (auto) PT INR Sodium 143 Potassium 3.4 D Chloride 114 H Carbon Dioxide 20 L Anion Gap 12 BUN 26 H Creatinine 2.37 H Estim Creat Clear Calc 30.3 Estimated GFR 27 POC Glucose 115 Random Glucose 112 Estimat Average Glucose 97 Hemoglobin A1c % 5.0 Calcium 8.7 Magnesium 1.6 Total Bilirubin 8.3 H AST 131 H ALT 66 H Alkaline Phosphatase 301 H Ammonia Total Protein 7.1 Albumin 2.4 L TSH Urine Color Urine Appearance Urine pH Ur Specific [place] Urine Protein Urine Glucose (UA) Urine Ketones Urine Blood Urine Nitrite Ur Leukocyte Esterase U Random Total Protein Ur Random Sodium Urine Creatinine Stool Occult Blood Salicylates Acetaminophen Ethyl Alcohol 10/27/22 10/27/22 10/27/22 08:19 11:25 13:01 WBC 7.2 RBC 3.26 L Hgb 10.3 L Hct 29.9 L MCV 91.7 MCH 31.6 MCHC 34.4 RDW 21.3 H Plt Count 149 L MPV 10.5 Immature Gran % (Auto) Neut % (Auto) Lymph % (Auto) [place] % (Auto) Eos % (Auto) Baso % (Auto) Lymph # (Auto) [place] # (Auto) Eos # (Auto) Baso # (Auto) Abs Immat Gran (auto) Absolute Neuts (auto) Absolute Nucleated RBC 0.000 Nucleated RBC % (auto) 0.0 PT 16.4 H INR 1.4 H Sodium Potassium Chloride Carbon Dioxide Anion Gap BUN Creatinine Estim Creat Clear Calc Estimated GFR POC Glucose 83 Random Glucose Estimat Average Glucose Hemoglobin A1c % Calcium Magnesium Total Bilirubin AST ALT Alkaline Phosphatase Ammonia Total Protein Albumin TSH Urine Color Urine Appearance Urine pH Ur Specific [place] Urine Protein Urine Glucose (UA) Urine Ketones Urine Blood Urine Nitrite Ur Leukocyte Esterase U Random Total Protein Ur Random Sodium Urine Creatinine Stool Occult Blood Salicylates Acetaminophen Ethyl Alcohol 10/27/22 10/27/22 10/27/22 14:08 14:08 14:50 WBC RBC Hgb Hct MCV MCH MCHC RDW Plt Count MPV Immature Gran % (Auto) Neut % (Auto) Lymph % (Auto) [place] % (Auto) Eos % (Auto) Baso % (Auto) Lymph # (Auto) [place] # (Auto) Eos # (Auto) Baso # (Auto) Abs Immat Gran (auto) Absolute Neuts (auto) Absolute Nucleated RBC Nucleated RBC % (auto) PT INR Sodium Potassium Chloride Carbon Dioxide Anion Gap BUN Creatinine Estim Creat Clear Calc Estimated GFR POC Glucose 116 H Random Glucose Estimat Average Glucose Hemoglobin A1c % Calcium Magnesium Total Bilirubin AST ALT Alkaline Phosphatase Ammonia Total Protein Albumin TSH Urine Color Urine Appearance Urine pH Ur Specific [place] Urine Protein Urine Glucose (UA) Urine Ketones Urine Blood Urine Nitrite Ur Leukocyte Esterase U Random Total Protein < 7 Ur Random Sodium 101.0 Urine Creatinine 30.09 Stool Occult Blood Salicylates Acetaminophen Ethyl Alcohol 10/27/22 17:48 WBC RBC Hgb Hct MCV MCH MCHC RDW Plt Count MPV Immature Gran % (Auto) Neut % (Auto) Lymph % (Auto) [place] % (Auto) Eos % (Auto) Baso % (Auto) Lymph # (Auto) [place] # (Auto) Eos # (Auto) Baso # (Auto) Abs Immat Gran (auto) Absolute Neuts (auto) Absolute Nucleated RBC Nucleated RBC % (auto) PT INR Sodium Potassium Chloride Carbon Dioxide Anion Gap BUN Creatinine Estim Creat Clear Calc Estimated GFR POC Glucose 105 Random Glucose Estimat Average Glucose Hemoglobin A1c % Calcium Magnesium Total Bilirubin AST ALT Alkaline Phosphatase Ammonia Total Protein Albumin TSH Urine Color Urine Appearance Urine pH Ur Specific [place] Urine Protein Urine Glucose (UA) Urine Ketones Urine Blood Urine Nitrite Ur Leukocyte Esterase U Random Total Protein Ur Random Sodium Urine Creatinine Stool Occult Blood Salicylates Acetaminophen Ethyl Alcohol Pending studies at discharge: Pending at discharge 10/27/22 16:03 Surgical [PTH] Routine Discharge Plan Discharge Anticipated Discharge Date/Time: 10/27/22 18:07 Patient Disposition: Xfer Acute Care Hospital Discharge Diagnosis: upper GI bleed, gastric varix, hepatic encephalopathy, decompensated cirrhosis, renal failure Referrals: Bryan Castrejon MD [Primary Care Provider] - 1 Week Cole Ramesh MD [Physician] - 2 Weeks Discharge Medications: New ceftriaxone 1 gram Recon Soln 1 g IV Q24H Qty: 1 0RF Xifaxan 550 mg Tablet 550 mg PO BID Qty: 1 0RF pantoprazole [Protonix] 40 mg Recon Soln 40 mg IVPUSH BID@0630,1630 Qty: 1 0RF insulin lispro [Humalog U-100 Insulin] 100 unit/mL Solution See Protocol subcut Q6H Qty: 1 0RF Protocol: Insulin Correction Scale Less than or equal to 110 ---- Give (units): 0 111 to 150 Give (units): 0 151 to 200 Give (units): 2 201 to 250 Give (units): 4 251 to 300 Give (units): 6 301 to 350 Give (units): 8 Greater than 350 Give (units): 10 Call MD if Blood Glucose > : 350 lactulose 20 gram/30 mL Solution 30 g PO TID Qty: 1 0RF Continued mirtazapine 15 mg tablet 7.5 mg PO DAILY timolol maleate 0.5 % drops 1 drp ophthalmic (eye) BID latanoprost 0.005 % drops 1 drp ophthalmic (eye) BEDTIME Discontinued metformin 500 mg tablet 500 mg PO BID pioglitazone 30 mg tablet 30 mg PO DAILY aspirin [Adult Aspirin Regimen] 81 mg tablet,delayed release (DR/EC) 81 mg PO DAILY Discharge Orders: Discharge Order (Routine); Ordered 10/27/22 Ordered By: Asia Morales Diet: NPO Activity on Discharge: As tolerated Stand Alone Forms: Patient Portal Discharge page Care Plan Goals: management and prevention of variceal bleeding Health Concerns: upper GI bleed, gastric varix, hepatic encephalopathy, decompensated cirrhosis, renal failure Plan of Treatment: transfer to tertiary care center for endoscopic cyanoacrylate injection Assessment: See Discharge Summary. Discharge Date/Time: 10/27/22 21:41
[2022-10-27 19:46] LABS: Glucose, Whole Blood 107 mg/dL (60-115)
--- NOTE | 2022-10-27 20:12 | P.EN_ITS ---
Event Note Date of Service: 10/27/22 Event Note: pt being transferred to [facility] to their ICU department. Family at bedside notified. RN notified. Pt sleepy but able to tolerate po at this time Time Spent With Patient Time: Total time managing care of this patient today ____ minutes.
[2022-10-29 09:08] LABS: HBc Num1 0.13 S/CO (0.00-0.79); HBsAGNum1 0.28 S/CO (0.00-0.99); Hepatitis A Antibody IgM 0.23 Index (0-0.79); Hepatitis B Core Antibody Nonreactive (Nonreactive); Hepatitis B Surface Antigen Negative (Negative); ~Hepatitis A Antibody IgM Nonreactive (Nonreactive); ~Hepatitis B Surface Antibody NONREACTIVE (Nonreactive); ~Hepatitis C Antibody Nonreactive (Nonreactive)
[2022-10-31 09:59] LABS: PEU-Protein Creat Ratio Rand 0.135 (0.025-0.148); PEU-Rand. Prot/Creat Ratio 135 mg/g creat (25-148); PEU-Random Ur. Gamma Globulin 0 %; PEU-Random Urine A1 Globulin 0 %; PEU-Random Urine A2 Globulin 0 %; PEU-Random Urine Albumin 100 %; PEU-Random Urine Beta Globulin 0 %; PEU-Random Urine Creatinine 37 mg/dL (20-320); PEU-Random Urine Protein 5 mg/dL (5-25)
== END 2022-10-27 21:41 | disposition short-term general hospital (02) | DRG 432 ==
LOC: HO.ED 10-27 00:40 → HO.EDOVER 10-27 01:23 → HO.IMC 10-27 01:43
PROVIDERS: Internal Medicine Gastroenterology; Internal Medicine Hypertension Specialist; Nurse Practitioner Family; Admitting Provider Student in an Organized Health Care Education/Training Program; Emergency Provider Emergency Medicine Emergency Medical Services; PCP Family Medicine; Visit Provider Family Medicine
PROC: 0DJ08ZZ Inspection of Upper Intestinal Tract, Via Natural or Artificial Opening Endoscopic (ICD-10-PCS; CPT 43235; principal; 2022-10-27 14:30)
DX: K74.60 Unspecified cirrhosis of liver (principal); I85.11 Secondary esophageal varices with bleeding; K76.7 Hepatorenal syndrome; K26.4 Chronic or unspecified duodenal ulcer with hemorrhage; K25.4 Chronic or unspecified gastric ulcer with hemorrhage; N17.9 Acute kidney failure, unspecified; K76.6 Portal hypertension; K76.82 Hepatic encephalopathy; I25.10 Atherosclerotic heart disease of native coronary artery without angina pectoris; I25.2 Old myocardial infarction; K31.89 Other diseases of stomach and duodenum; Z86.73 Personal history of transient ischemic attack (TIA), and cerebral infarction without residual deficits; Z91.148 Patient's other noncompliance with medication regimen for other reason; Z79.4 Long term (current) use of insulin; Z79.899 Other long term (current) drug therapy
CPT/HCPCS: 36415; 70450; 74176; 76700; 80053; 80143; 80179; 80307; 81003; 82140; 82272; 82570; 82947; 83036; 83735; 84156; 84166; 84300; 84443; 85025; 85027; 85610; 86704; 86706; 86709; 86803; 87340; 88305; 88342; 93005; 99285; J0696; J2060; J2354; J3010

== ENCOUNTER 2023-01-09 11:57 | Inpatient (IN) | payer MEDICARE, OTHER, SELFPAY ==
--- NOTE | ~2023-01-09 | CT_ITS ---
EXAMINATION: CT ABDOMEN AND PELVIS WITH CONTRAST CLINICAL INFORMATION: Left groin pain. Evaluate for ascites, hernia. COMPARISON: CT abdomen and pelvis from 10/27/2022. TECHNIQUE: Multidetector volumetric images were obtained from the superior aspect of the liver through the pubic symphysis following administration 85 mL of Omnipaque 350 intravenous contrast. Sagittal and coronal reformatted images were obtained on the technologist's workstation. Oral contrast: No This CT examination was performed using dose optimization techniques as appropriate, variously including the following: *Automated exposure control *Adjustment of mA and/or kV according to patient size (this includes techniques or standardized protocols for targeted exams where dose is matched to indication/reason for exam; i.e. extremities or head) *Use of iterative reconstruction technique DLP: 1006 mGy-cm FINDINGS: LUNG BASES: No acute abnormality. No pulmonary consolidation or pleural effusion. There is atherosclerotic calcification of coronary arteries. HEPATOBILIARY: Cirrhotic liver has nodular contour. Multiple small hypodense foci, some measuring up to 1 cm, are present within the right and left lobes and these are not simple-appearing cysts. Also, there is an abnormal soft tissue density at the common hepatic duct. This could represent lymphadenopathy or tumor involvement of the duct. Also, there is ill-defined hypodensity in the central liver in region of confluence of the right hepatic duct with the left duct, possibly infiltrative tumor within this heterogeneous liver. Some of the intrahepatic ducts are mildly dilated within the right lobe. Gallbladder is physiologically distended and contains calcified stones. PANCREAS: Normal. No edema, pancreatic ductal dilatation or mass. SPLEEN: Normal. ADRENAL GLANDS: Normal. KIDNEYS AND URETERS: Kidneys enhance symmetrically. No renal stones or hydronephrosis. Small simple cysts of the kidneys. No renal imaging follow-up recommended. BLADDER: Urinary bladder is underdistended. No bladder calculi. The bladder base is compressed by the large prostate gland. BOWEL AND PERITONEUM: No dilated bowel loops. Moderate volume of ascites is present. No pneumoperitoneum. There is edema of omental and mesenteric fat. ABDOMINAL WALL: Mild edema in subcutaneous tissues of the anterior abdominal wall. Also, there is edema in subcutaneous tissues along the flanks, back and thighs. Bilateral inguinal hernias contain fat and ascitic fluid. No herniation of bowel into either inguinal canal. VASCULATURE: Mild atherosclerosis of the abdominal aorta without aneurysm. Inferior vena cava is normal. The paraumbilical vein is recanalized and there are left gastric and paraesophageal varices. There is some clustered calcific like density in the left upper quadrant in region of the dilated splenic veins. The main portal vein is relatively small at 0.8 cm diameter. This is likely from chronic venous hypertension. No venous thrombosis. LYMPH NODES: Chronically enlarged lymph node in the portacaval region is 1.8 cm short axis dimension. No pathologic sized retroperitoneal lymph nodes. No iliac or inguinal lymphadenopathy. PELVIC VISCERA: Prominent prostate gland with hyperplastic median lobe bulging into the bladder base. Prostate gland measures approximately 5.9 cm craniocaudal dimension. MUSCULOSKELETAL: Diffuse idiopathic skeletal hyperostosis as manifest by presence of bulky flowing anterior ligament ossification of the visualized lower thoracic spine and prominent osteophytes or enthesophytes of the degenerated lumbar spine. No acute or suspicious osseous abnormality. CT/CT abdomen pelvis w IV con IMPRESSION: * Cirrhotic liver with varices and moderate volume ascites. * Liver has heterogeneous attenuation. Multiple hypodense foci are present within the liver; these are suspicious for metastatic disease. Also, there appears to be soft tissue attenuation involving the common hepatic duct. Cholangiocarcinoma is possible. The hypodensity in the central liver involving region of right hepatic duct convergence with left hepatic duct could represent infiltrative tumor. There appears to be a chronically enlarged lymph node in the portacaval region. MR imaging of the liver without and with intravenous contrast may be helpful to further characterize the hepatobiliary disease. * Cholelithiasis. * Bilateral inguinal hernias contain fat and ascitic fluid. * Anasarca with presence of diffuse edema of subcutaneous tissues. Also, edema is present within mesenteric and omental fat.
--- NOTE | ~2023-01-09 | US_ITS ---
EXAMINATION: US SCROTUM CLINICAL INFORMATION: Left testicular and groin pain. COMPARISON: None available. TECHNIQUE: A sonogram of the scrotum was performed assessing burger-scale appearance and color Doppler flow. Spectral Doppler analysis of the arterial and venous flow were performed in the testes bilaterally. FINDINGS: RIGHT: Right testicle measures 8.9 x 2.3 x 2.5 cm, volume 12.1 mL. No focal testicular parenchymal lesions are visualized. Spectral Doppler analysis of the arterial and venous flow is normal in the right testis. Right epididymal head is normal in size. An appendix epididymis is noted. No right hydrocele or varicocele is seen. Right epididymal Doppler flow is normal. LEFT: Left testicle measures 3.4 x 2.5 x 2.7 cm, volume 11.9 mL. No focal testicular parenchymal lesions are visualized. Spectral Doppler analysis of the arterial and venous flow is normal in the left testis. Left epididymal head is normal in size. No left hydrocele or varicocele is seen. Left epididymal Doppler flow is normal. A left inguinal hernia defect is questioned. US/US scrotum IMPRESSION: 1. No testicular mass or torsion is seen bilaterally. 2. There is no bilateral hydrocele or varicocele. 3. A left inguinal hernia suspected on these images. Note is made of moderately large bilateral inguinal hernias containing both fat and fluid, noted on the CT abdomen and pelvis dated 01/09/2023 (3:94).
--- NOTE | ~2023-01-09 | MR_ITS ---
EXAMINATION: MR ABDOMEN WITHOUT CONTRAST CLINICAL INFORMATION: Evaluate for cholangiocarcinoma. COMPARISON: CT abdomen and pelvis from 01/09/2023. TECHNIQUE: Noncontrast multiplanar, multisequence MR imaging examination of the abdomen is performed on a high-field magnet. Examination includes heavily T2-weighted sequences. mechatronics technologist reports the patient had difficulty sustaining a breath-hold. FINDINGS: The cirrhotic liver has nodular surface contour and caudate lobe is hypertrophied. The gallbladder is physiologically distended. The small calcified stones that layer along the posterior gallbladder wall seen on the recent CT examination are suboptimally visualized on this MRI (images 14-15, series 5; image 17, series 12). There are no large gallstones. Common bile duct measures up to 0.6 cm diameter. Evaluation of the ducts is somewhat limited on this motion degraded examination. There are no visible stones within the common duct. The common hepatic duct is replaced by intermediate signal intensity and is poorly visualized (image 10, series 5; image 14, series 6). There appears to be tissue infiltration along both the right and left hepatic ducts at their convergence. The imaging findings are highly suggestive of cholangiocarcinoma. There is associated dilatation of left and right intrahepatic ducts. Also, there are ill-defined small scattered foci of T2 hyperintensity within the liver parenchyma, raising suspicion for multifocal tumor. A prominent portacaval lymph node is 1.5 cm in short axis dimension. Pancreas has normal parenchymal signal intensity. No pancreatic ductal dilatation. Mildly enlarged spleen measures up to 13.3 cm maximum dimension. No focal splenic lesion. Adrenal glands are unremarkable. No acute renal abnormalities. No hydronephrosis. No suspicious renal lesion. [id number] volume of ascites is present. There is edema of the omental and mesenteric fat. Also, there is diffuse edema of subcutaneous tissues of the flanks, abdominal wall and back. No focal fluid collection. No dilated bowel loops. A mildly dilated paraumbilical vein is visualized. Also, there are paraesophageal varices. No suspicious osseous lesion. MR/MR MRCP IMPRESSION: The evaluation of the biliary system is partially limited due to patient's difficulty sustaining a breath-hold for the MRI. This MRCP examination suggests presence of cholangiocarcinoma. There is abnormal intermediate signal intensity replacing the common hepatic duct as well as right and left hepatic ducts at their convergence. There is associated intrahepatic ductal dilatation. Also, there are scattered small foci of T2 signal hyperintensity within the liver that are not simple cysts and likely represent multifocal tumor/metastatic disease. Hepatic cirrhosis with varices, mild splenomegaly, ascites and anasarca.
--- NOTE | ~2023-01-09 | US_ITS ---
EXAMINATION: US SCROTUM CLINICAL INFORMATION: Left testicular and groin pain. COMPARISON: None available. TECHNIQUE: A sonogram of the scrotum was performed assessing burger-scale appearance and color Doppler flow. Spectral Doppler analysis of the arterial and venous flow were performed in the testes bilaterally. FINDINGS: RIGHT: Right testicle measures 8.9 x 2.3 x 2.5 cm, volume 12.1 mL. No focal testicular parenchymal lesions are visualized. Spectral Doppler analysis of the arterial and venous flow is normal in the right testis. Right epididymal head is normal in size. An appendix epididymis is noted. No right hydrocele or varicocele is seen. Right epididymal Doppler flow is normal. LEFT: Left testicle measures 3.4 x 2.5 x 2.7 cm, volume 11.9 mL. No focal testicular parenchymal lesions are visualized. Spectral Doppler analysis of the arterial and venous flow is normal in the left testis. Left epididymal head is normal in size. No left hydrocele or varicocele is seen. Left epididymal Doppler flow is normal. A left inguinal hernia defect is questioned. US/US scrotum doppler IMPRESSION: 1. No testicular mass or torsion is seen bilaterally. 2. There is no bilateral hydrocele or varicocele. 3. A left inguinal hernia suspected on these images. Note is made of moderately large bilateral inguinal hernias containing both fat and fluid, noted on the CT abdomen and pelvis dated 01/09/2023 (3:94).
--- NOTE | ~2023-01-09 | US_ITS ---
History: 77-year-old male with ascites. Procedure performed: Ultrasound-guided paracentesis a sterile dressing was applied. The patient tolerated the procedure well. Research Greenhouse Supervisor: Carolina Sifuentes MD Anesthesia: 7 mL 1% lidocaine Specimen: 2.4 L of cloudy yellow fluid Drain: 5 Sudanese Yueh catheter Estimated blood loss: Minimal Complications: None Procedure in detail: Informed and written consent was obtained. Ultrasound of the patient's abdomen showed the largest collection of fluid in the right lower quadrant. The overlying skin was prepped and draped. 1% lidocaine was injected subcutaneously and extended to the peritoneum. A small incision was made in the skin with a #11 blade. Through the incision and under ultrasound guidance with permanent recordings and direct visualization of needle entry into the peritoneum, a 5 Sudanese Yueh needle catheter was inserted into the peritoneum. The needle was removed. Through the catheter, we aspirated 2.4 L of cloudy yellow fluid. A sterile dressing was applied. Summary: Successful ultrasound-guided paracentesis.
--- NOTE | 2023-01-09 12:04 | ED.ABDPAIN ---
HPI - Abdominal Pain General Chief Complaint: Abdominal Pain Stated Complaint: groin pain Time Seen by Provider: 01/09/23 16:36 Source: patient, RN notes reviewed and old records reviewed Mode of arrival: ambulatory History of Present Illness HPI narrative: 77-year-old male with a past medical history of hypertension, diabetes, CAD, STEMI, CVA, hepatic encephalopathy, liver cancer on chemotherapy at [facility] with decompensated cirrhosis requiring large volume paracentesis (3.8L on 12/27 at [facility]), presenting to ED complaining of left testicular/groin pain radiating to left lower quadrant x 2 weeks. Patient with baseline jaundice per family and chronic LE edema recently increased Lasix. Family admits symptoms are similar to prior admission to [facility]. Denies fever/chills, nausea/vomiting, dysuria/hematuria Related Data Home Medications Medication Instructions Recorded Confirmed latanoprost 0.005 % eye drops 1 drp ophthalmic (eye) BEDTIME 01/29/22 10/27/22 timolol maleate 0.5 % eye drops 1 drp ophthalmic (eye) BID 01/29/22 10/27/22 mirtazapine 15 mg tablet 7.5 mg PO DAILY 10/27/22 10/27/22 Previous Rx's Medication Instructions Recorded ceftriaxone 1 gram solution for 1 g IV Q24H #1 ea 10/27/22 injection insulin lispro 100 unit/mL See Protocol subcut Q6H #1 mL 10/27/22 subcutaneous solution (Humalog U-100 Insulin) lactulose 20 gram/30 mL oral 30 g (45 mL) PO TID #1 mL 10/27/22 solution pantoprazole 40 mg intravenous 40 mg IVPUSH BID@0630,1630 #1 ea 10/27/22 solution (Protonix) rifaximin 550 mg tablet (Xifaxan) 550 mg PO BID #1 tab 10/27/22 Allergies Allergy/AdvReac Type Severity Reaction Status Date / Time No Known Allergies Allergy Verified 01/09/23 12:04 [No Known Allergies*] Review of Systems Review of Systems Constitutional: No Fever, No Chills,No Fatigue, No Malaise, + jaundice ENT/Mouth: No Ear Pain, No Nasal Congestion, No Sinus Pain, No sore throat, No Rhinorrhea, No Swallowing Difficulty Eyes: No Eye Pain, No Swelling, No Redness, No Vision Changes Cardiovascular: No Chest Pain, No SOB, +chronic Edema, No Palpitations Respiratory: No Cough, No Sputum, No Dyspnea Gastrointestinal: No Nausea, No Vomiting, No Diarrhea, No Constipation, +Abdominal pain Genitourinary: +testicular/groin pain, No Dysuria, No Urinary Frequency, No Hematuria, No Flank Pain Musculoskeletal: No joint pain, No Myalgias, No Joint Swelling Skin: No Skin Lesions, No rash Neuro: No Weakness, No Numbness, No Paresthesias, No Loss of Consciousness, No Dizziness, No Headache Yes all other systems are reviewed and are negative Constitutional: Reports as per [facility] Past Medical History Attestation statement: The following information was validated with the patient. 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 Mother No problems noted. Social History Social History Household Members: Family Housing: Unknown / Unable to assess Unable to assess alcohol history related to: Unable to respond and Unknown Alcohol intake: never Patient Tobacco Use Status: Former Tobacco user Quit Date: 20 YEARS AGO Advance Directives: Yes Advance Directives Information Provided: No Advance Directives on File: No Physical Exam ED Vital Signs: Vital Signs - 24 hr 01/09/23 12:05 01/09/23 16:38 01/09/23 18:19 Temperature 98.6 F 98.4 F 98.6 F Pulse Rate 91 94 96 Respiratory Rate 19 18 16 Blood Pressure 145/86 H 154/69 H 146/86 H Pulse Oximetry 98 98 97 Oxygen Delivery Method Room Air Room Air Room Air 01/09/23 21:21 Temperature 98.6 F Pulse Rate 91 Respiratory Rate 18 Blood Pressure 131/70 Pulse Oximetry 95 Oxygen Delivery Method Room Air BMI result Body Mass Index 31.9 Const Other: Jaundice General: cooperative and no acute distress Orientation/consciousness: patient oriented x3 Limitations: no limitations HENMT Head: Yes normal to inspection and Yes atraumatic Ears: hearing grossly normal bilaterally General nose exam: Normal external nose present Face and sinus: Yes normal facial exam Eyes General: appearance normal, both eyes and all related structures EOM: EOMs intact bilaterally Neck Neck: Yes normal visual inspection and Yes no meningeal signs Resp Effort & Inspection: normal respiratory effort and no respiratory distress Auscultation: clear to auscultation bilaterally Cardio Rate: regular rate Heart sounds: S1 normal heart sound present and S2 normal heart sound present GI Inspection: Yes normal to inspection Palpation (GI): Soft to palpation, Tenderness to palpation present (GI) (Left suprapubic/groin), no guarding, not rigid and Ascites present General: Yes no CVA tenderness Male General Exam: No hernia Scrotum: no ecchymosis, not edematous and no scrotal swelling Testes: Testes normal, no testicular swelling and no testicular tenderness Back/Spine/Pelvis Back: no CVA tenderness Skin Rashes: no rashes Wounds: no wounds Neuro General: patient oriented x3, tone normal and no meningeal signs Gait exam (Neuro): Normal gait present Extrem Other: 3+ pitting edema bilaterally Course Course Course Narrative: RME - 77 yo with history of liver cancer on chemotherapy at [facility], w/ decompensated cirrhosis s/p large volume paracentesis 3.8L removed on 12/27, hx NSVT, CVA who presents to the ER for evaluation of 9/10 lower abdominal pain for the last 2.5 weeks. Seen at [facility] 12/24 in the ER - had U/S done showing everything was ok, and had paracentesis later that week. Recently had lasix increased. No N/V/D, fever, chills. Plan: lab workup, UA, ?bedside U/S to assess for recurrent ascites vs possible CT scan. defer to provider in the main ER -1757--no leukocytosis. Noted anemia with that H&H 7.9/24.7 (baseline 04/14) >> patient denies any melena/black stool, will obtain occult stool. Chronic transaminitis. Ammonia WNL -BNP 328. UA not infected -1858--occult stool negative, anemia likely from chronic disease > will repeat for 4hr H&H > does report patient with known anemia on outpatient labs at [facility] 12/24/22 & was told to monitor closely 2039--CT abdomen pelvis w IV con IMPRESSION: *? Cirrhotic liver with varices and moderate volume ascites. *? Liver has heterogeneous attenuation. Multiple hypodense foci are present within the liver; these are suspicious for metastatic disease. Also, there appears to be soft tissue attenuation involving the common hepatic duct. Cholangiocarcinoma is possible. The hypodensity in the central liver involving region of right hepatic duct convergence with left hepatic duct could represent infiltrative tumor. There appears to be a chronically enlarged lymph node in the portacaval region. MR imaging of the liver without and with intravenous contrast may be helpful to further characterize the hepatobiliary disease. *? Cholelithiasis. *? Bilateral inguinal hernias contain fat and ascitic fluid. *? Anasarca with presence of diffuse edema of subcutaneous tissues. Also, edema is present within mesenteric and omental fat. > inguinal hernias containing fat/ascetic fluid likely cause of patient's symptoms. Will give 40 mg of IV Lasix, pending scrotal ultrasound, plan will be for admission 2116--US scrotum IMPRESSION: 1. No testicular mass or torsion is seen bilaterally. ? 2. There is no bilateral hydrocele or varicocele. ? 3. A left inguinal hernia suspected on these images. Note is made of moderately large bilateral inguinal hernias containing both fat and fluid, noted on the CT abdomen and pelvis dated 01/09/2023 (3:94). > plan to admit for further management, GI consult, likely paracentesis tomorrow and diuresis Medical Decision Making Medical Decision Making MDM Narrative: 77-year-old male with a past medical history of hypertension, diabetes, CAD, STEMI, CVA, hepatic encephalopathy, liver cancer on chemotherapy at [facility] with decompensated cirrhosis requiring large volume paracentesis (3.8L on 12/27 at [facility]), presenting to ED complaining of left testicular/groin pain radiating to left lower quadrant x 2 weeks. On exam vital signs stable, NAD, nontoxic appearing, lungs CTA, mild abdominal ascites appreciated, abdomen is soft/nontender, testicular exam without elicited tenderness/erythema or swelling, + tenderness to left suprapubic/groin region without appreciable mass. Concern for orchitis/epididymitis vs hernia vs ascites. Low suspicion for SBP without abdominal tenderness. Lower suspicion for diverticulitis/appendicitis. Concern for acute on chronic pedal edema/CHF, no respiratory distress or compromise at this time Plan: Labs, UA, CT NG, CT AP, scrotal ultrasound Please refer to course for remaining clinical decision making, interpretation of labs/imaging results, and discussions with consultants and/or family members. Differential Diagnosis Differential Diagnoses: The differential diagnosis associated with the presentation includes As above Admission/Observation Consideration of admission/observation: Escalation of care including admission/observation considered Lab Data MDM Lab Attestation statement: I reviewed the patient's lab results. 01/09/23 16:09 01/09/23 16:09 Labs: Lab Results 01/09/23 01/09/23 01/09/23 Range/Units 16:09 16:09 16:09 WBC 7.1 (4.8-10.8) X10*3/uL RBC 2.72 L (4.60-5.80) X10*6/uL Hgb 7.9 L D (14.0-18.0) g/dl Hct 24.7 L (42.0-52.0) % MCV 90.8 (80.0-98.0) fL MCH 29.0 (27.0-33.0) pg MCHC 32.0 (31.0-36.0) g/dl RDW 19.0 H (11.0-16.0) % Plt Count 165 (160-400) X10*3/uL MPV 10.8 (9.4-12.4) fL Immature Gran % (Auto) 0.3 (0.0-0.4) % Neut % (Auto) 55.9 (45-73) % Lymph % (Auto) 31.6 (20-40) % Gray % (Auto) 8.7 (2-11) % Eos % (Auto) 2.9 (0-4) % Baso % (Auto) 0.6 (0-2) % Lymph # (Auto) 2.3 (1.2-4.9) X10*3/uL Gray # (Auto) 0.6 (0.1-1.2) X10*3/uL Eos # (Auto) 0.2 (0.0-0.4) X10*3/uL Baso # (Auto) 0.0 (0.0-0.2) X10*3/uL Abs Immat Gran (auto) 0.02 (0.00-0.03) X10*3/uL Absolute Neuts (auto) 4.0 (2.0-8.3) x10*3/uL Absolute Nucleated RBC 0.000 (0.0-0.012) X10*3/uL Nucleated RBC % (auto) 0.0 (0.0-0.2) /100WBC PT 15.7 H (11.1-13.3) SEC INR 1.3 H (0.9-1.1) APTT 34.4 (26.0-36.4) SEC Sodium 135 (135-145) mmol/L Potassium 4.4 D (3.3-5.1) mmol/L Chloride 105 (96-108) mmol/L Carbon Dioxide 21 L (22-29) mmol/L Anion Gap 13 (12-20) BUN 19 H (9-16) mg/dL Creatinine 1.32 (0.5-1.4) mg/dL Estim Creat Clear Calc 55.8 Estimated GFR 53 Random Glucose 140 H (60-115) mg/dL Calcium 8.3 L (8.4-10.2) mg/dL Magnesium 1.9 (1.6-2.6) mg/dL Total Bilirubin 4.7 H (0.0-1.0) mg/dL Direct Bilirubin 3.3 H (0.0-0.5) mg/dL AST 105 H (5-37) U/L ALT 42 H (0-40) U/L Alkaline Phosphatase 294 H (39-117) U/L Ammonia (13-55) umol/L B-Natriuretic Peptide (<100) pg/mL Total Protein 8.5 H (6.5-8.0) g/dL Albumin 2.0 L (3.5-5.0) g/dL Lipase 12 (8-78) U/L Urine Color Urine Appearance Urine pH (5.0-9.0) Ur Specific [place] (1.005-1.025) Urine Protein (Neg-Trace) mg/dL Urine Glucose (UA) (Negative) mg/dL Urine Ketones (Negative) mg/dL Urine Blood (Negative) Urine Nitrite (Negative) Ur Leukocyte Esterase (Negative) Urine RBC (0-2) /HPF Urine WBC (0-5) /HPF Ur Squamous Epith Cells (0-2) /HPF Urine Bacteria (None Seen) Hyaline Casts (0-2) /LPF Stool Occult Blood (NEGATIVE) 01/09/23 01/09/23 01/09/23 Range/Units 16:09 17:21 17:21 WBC (4.8-10.8) X10*3/uL RBC (4.60-5.80) X10*6/uL Hgb (14.0-18.0) g/dl Hct (42.0-52.0) % MCV (80.0-98.0) fL MCH (27.0-33.0) pg MCHC (31.0-36.0) g/dl RDW (11.0-16.0) % Plt Count (160-400) X10*3/uL MPV (9.4-12.4) fL Immature Gran % (Auto) (0.0-0.4) % Neut % (Auto) (45-73) % Lymph % (Auto) (20-40) % Gray % (Auto) (2-11) % Eos % (Auto) (0-4) % Baso % (Auto) (0-2) % Lymph # (Auto) (1.2-4.9) X10*3/uL Gray # (Auto) (0.1-1.2) X10*3/uL Eos # (Auto) (0.0-0.4) X10*3/uL Baso # (Auto) (0.0-0.2) X10*3/uL Abs Immat Gran (auto) (0.00-0.03) X10*3/uL Absolute Neuts (auto) (2.0-8.3) x10*3/uL Absolute Nucleated RBC (0.0-0.012) X10*3/uL Nucleated RBC % (auto) (0.0-0.2) /100WBC PT (11.1-13.3) SEC INR (0.9-1.1) APTT (26.0-36.4) SEC Sodium (135-145) mmol/L Potassium (3.3-5.1) mmol/L Chloride (96-108) mmol/L Carbon Dioxide (22-29) mmol/L Anion Gap (12-20) BUN (9-16) mg/dL Creatinine (0.5-1.4) mg/dL Estim Creat Clear Calc Estimated GFR Random Glucose (60-115) mg/dL Calcium (8.4-10.2) mg/dL Magnesium (1.6-2.6) mg/dL Total Bilirubin (0.0-1.0) mg/dL Direct Bilirubin (0.0-0.5) mg/dL AST (5-37) U/L ALT (0-40) U/L Alkaline Phosphatase (39-117) U/L Ammonia 45 (13-55) umol/L B-Natriuretic Peptide 328 H (<100) pg/mL Total Protein (6.5-8.0) g/dL Albumin (3.5-5.0) g/dL Lipase (8-78) U/L Urine Color Dark Yellow Urine Appearance Clear Urine pH 5.5 (5.0-9.0) Ur Specific [place] 1.020 (1.005-1.025) Urine Protein Trace (Neg-Trace) mg/dL Urine Glucose (UA) Negative (Negative) mg/dL Urine Ketones Trace (Negative) mg/dL Urine Blood Negative (Negative) Urine Nitrite Negative (Negative) Ur Leukocyte Esterase Trace H (Negative) Urine RBC 0-2 (0-2) /HPF Urine WBC 0-5 (0-5) /HPF Ur Squamous Epith Cells 0-2 (0-2) /HPF Urine Bacteria None Seen (None Seen) Hyaline Casts 3-5 (0-2) /LPF Stool Occult Blood (NEGATIVE) 01/09/ Range/Units 18:21 WBC (4.8-10.8) X10*3/uL RBC (4.60-5.80) X10*6/uL Hgb (14.0-18.0) g/dl Hct (42.0-52.0) % MCV (80.0-98.0) fL MCH (27.0-33.0) pg MCHC (31.0-36.0) g/dl RDW (11.0-16.0) % Plt Count (160-400) X10*3/uL MPV (9.4-12.4) fL Immature Gran % (Auto) (0.0-0.4) % Neut % (Auto) (45-73) % Lymph % (Auto) (20-40) % Gray % (Auto) (2-11) % Eos % (Auto) (0-4) % Baso % (Auto) (0-2) % Lymph # (Auto) (1.2-4.9) X10*3/uL Gray # (Auto) (0.1-1.2) X10*3/uL Eos # (Auto) (0.0-0.4) X10*3/uL Baso # (Auto) (0.0-0.2) X10*3/uL Abs Immat Gran (auto) (0.00-0.03) X10*3/uL Absolute Neuts (auto) (2.0-8.3) x10*3/uL Absolute Nucleated RBC (0.0-0.012) X10*3/uL Nucleated RBC % (auto) (0.0-0.2) /100WBC PT (11.1-13.3) SEC INR (0.9-1.1) APTT (26.0-36.4) SEC Sodium (135-145) mmol/L Potassium (3.3-5.1) mmol/L Chloride (96-108) mmol/L Carbon Dioxide (22-29) mmol/L Anion Gap (12-20) BUN (9-16) mg/dL Creatinine (0.5-1.4) mg/dL Estim Creat Clear Calc Estimated GFR Random Glucose (60-115) mg/dL Calcium (8.4-10.2) mg/dL Magnesium (1.6-2.6) mg/dL Total Bilirubin (0.0-1.0) mg/dL Direct Bilirubin (0.0-0.5) mg/dL AST (5-37) U/L ALT (0-40) U/L Alkaline Phosphatase (39-117) U/L Ammonia (13-55) umol/L B-Natriuretic Peptide (<100) pg/mL Total Protein (6.5-8.0) g/dL Albumin (3.5-5.0) g/dL Lipase (8-78) U/L Urine Color Urine Appearance Urine pH (5.0-9.0) Ur Specific [place] (1.005-1.025) Urine Protein (Neg-Trace) mg/dL Urine Glucose (UA) (Negative) mg/dL Urine Ketones (Negative) mg/dL Urine Blood (Negative) Urine Nitrite (Negative) Ur Leukocyte Esterase (Negative) Urine RBC (0-2) /HPF Urine WBC (0-5) /HPF Ur Squamous Epith Cells (0-2) /HPF Urine Bacteria (None Seen) Hyaline Casts (0-2) /LPF Stool Occult Blood NEGATIVE (NEGATIVE) Radiology Impression Discussion of test interpretation with radiology: I have reviewed the radiologist's reading. Independent Historian Clinical information obtained from an independent historian. History obtained from or confirmed by: Spouse and Other (Son) External Record Review External record reviewed: Inpatient record, Office record, Outpatient record, Prior outpatient labs, Prior outpatient radiology, Primary care record and Outside ED record Tests considered The following testing was considered but not selected: As above Prescription Management I considered prescription management with: Pain Medication and Antibiotic Chronic Conditions Patient?s care impacted by: Cancer Medications Administered Discontinued Medications Generic Name Dose Route Start Last Admin Trade Name Freq PRN Reason Stop Dose Admin Furosemide 40 mg 01/09/23 20:41 01/09/23 21:09 Furosemide 40 Mg/4 Ml Vial IVPUSH 01/09/23 20:42 40 mg STAT STA Administration Protocol Iohexol 100 ml 01/09/23 17:46 01/09/23 17:46 Iohexol 350 Mg/Ml 100 Ml Infus..Btl IV 01/09/23 17:47 85 ml ONCE ONE Administration Discharge Plan Discharge Clinical Impression: Bilateral inguinal hernia, Anasarca, Pedal edema Patient Disposition: Admitted As Inpatient
[2023-01-09 12:05] VITALS: BP 145/86; PULSE 91; RESP 19; TEMP 37; O2SAT 98; BMI 31.9
[2023-01-09 16:26] LABS: MANUAL DIFF FLAG NO
[2023-01-09 16:38] VITALS: BP 154/69; PULSE 94; RESP 18; TEMP 36.9; O2SAT 98
[2023-01-09 16:44] LABS: Basophils Percent Auto 0.6 % (0-2); Eosinophils Absolute Auto 0.2 X10*3/uL (0.0-0.4); Eosinophils Percent Auto 2.9 % (0-4); Hematocrit 24.7 % (42.0-52.0); Hemoglobin 7.9 g/dl (14.0-18.0); Imm Gran Abs Auto 0.02 X10*3/uL (0.00-0.03); Imm Gran Pct Auto 0.3 % (0.0-0.4); Lymphocytes Absolute Auto 2.3 X10*3/uL (1.2-4.9); Lymphocytes Percent Auto 31.6 % (20-40); Mean Corpuscular Volume 90.8 fL (80.0-98.0); Mean Platelet Volume 10.8 fL (9.4-12.4); Monocytes Absolute Auto 0.6 X10*3/uL (0.1-1.2); Monocytes Percent Auto 8.7 % (2-11); Neutrophils Percent Auto 55.9 % (45-73); Platelet Count 165 X10*3/uL (160-400); Red Blood Count 2.72 X10*6/uL (4.60-5.80); White Blood Count 7.1 X10*3/uL (4.8-10.8)
[2023-01-09 16:51] LABS: INTERNATIONAL NORM RATIO 1.3 (0.9-1.1); Prothrombin Time 15.7 SEC (11.1-13.3)
[2023-01-09 16:54] LABS: Partial Thromboplastin Time 34.4 SEC (26.0-36.4)
[2023-01-09 16:58] LABS: B Type Natriuretic Peptide 328 pg/mL (<100)
[2023-01-09 17:17] LABS: Alanine Aminotransferase 42 U/L (0-40); Alkaline Phosphatase 294 U/L (39-117); Anion Gap 13 (12-20); Aspartate Amino Transferase 105 U/L (5-37); Bilirubin Direct 3.3 mg/dL (0.0-0.5); Bilirubin Total 4.7 mg/dL (0.0-1.0); Blood Urea Nitrogen 19 mg/dL (9-16); Calcium 8.3 mg/dL (8.4-10.2); Carbon Dioxide 21 mmol/L (22-29); Chloride 105 mmol/L (96-108); Creatinine Clr Calc Pharmacy 55.8; Estimated Glomerular Filt Rate 53; Glucose Random 140 mg/dL (60-115); Lipase 12 U/L (8-78); Magnesium 1.9 mg/dL (1.6-2.6); Potassium 4.4 mmol/L (3.3-5.1); Sodium 135 mmol/L (135-145); Total Protein 8.5 g/dL (6.5-8.0)
[2023-01-09] MEDS: iohexoL 350 MG/ML 100 ML INFUS..BTL IV (17:46)
[2023-01-09 17:47] LABS: Appearance Urine Clear; Color Urine Dark Yellow; Glucose Urine UA Negative (Negative); Leukocyte Esterase Urine Trace (Negative); Nitrite Urine Negative (Negative); PH 5.5 (5.0-9.0); UMIC TRIGGER UACC YES; Urine Blood Negative (Negative); Urine Ketones Trace mg/dL (Negative); Urine Protein Trace mg/dL (Neg-Trace)
[2023-01-09 17:52] LABS: Bacteria Urine None Seen (None Seen); RBC Urine 0-2 /HPF (0-2); Squamous Epithelial Cell Urine 0-2 /HPF (0-2); WBC Urine 0-5 /HPF (0-5)
[2023-01-09 17:56] LABS: Ammonia 45 umol/L (13-55)
[2023-01-09 18:19] VITALS: BP 146/86; PULSE 96; RESP 16; TEMP 37; O2SAT 97
[2023-01-09 18:46] LABS: OBS Int Ctl Valid YES; OBS1 NEGATIVE (NEGATIVE)
[2023-01-09] MEDS: Furosemide 40 MG/4 ML VIAL IVPUSH (21:09)
[2023-01-09 21:21] VITALS: BP 131/70; PULSE 91; RESP 18; TEMP 37; O2SAT 95
[2023-01-09 22:41] VITALS: BP 146/73; PULSE 97; RESP 16; O2SAT 96
--- NOTE | 2023-01-09 22:42 | PHA.MEDREC ---
Pharmacy Consult ? Medication Reconciliation Pharmacy has completed the medication reconciliation. Patient's confirmed all medications. Report patient no longer takes mirtazepine as it makes him too sleepy throughout the day. Laura Valdez, PharmD
[2023-01-10] VITALS (7 sets, daily range): BP systolic 96–137; BP diastolic 48–80; PULSE 72–103; RESP 13–20; TEMP 36.1–37; O2SAT 96–98
[2023-01-10 01:20] LABS: CT PCR NOT DETECTED (Not Detect.); NG PCR NOT DETECTED (Not Detect.)
[2023-01-10] MEDS: Gabapentin 100 MG CAPSULE PO ×2 (02:34→22:18)
[2023-01-10] MEDS: carvediloL 6.25 MG TABLET PO ×3 (02:34→22:18)
[2023-01-10] MEDS: Enoxaparin Sodium 40 MG/0.4 ML SYRINGE SUBCUT (02:34)
[2023-01-10] MEDS: Spironolactone 25 MG TABLET 50 MG PO ×2 (02:35→09:34)
[2023-01-10] MEDS: oxyCODONE HCl Immed Release 5 MG TABLET PO ×5 (02:35→23:30)
[2023-01-10] MEDS: 0.9 % Sodium Chloride Flush 3 ML SYRINGE IVFLUSH ×3 (02:35→22:26)
[2023-01-10] MEDS: rifAXIMin 550 MG TABLET PO ×3 (02:47→22:18)
[2023-01-10 04:46] LABS: MANUAL DIFF FLAG NO
[2023-01-10 04:49] LABS: Basophils Percent Auto 0.6 % (0-2); Eosinophils Absolute Auto 0.2 X10*3/uL (0.0-0.4); Eosinophils Percent Auto 3.1 % (0-4); Hematocrit 22.9 % (42.0-52.0); Hemoglobin 7.4 g/dl (14.0-18.0); Imm Gran Abs Auto 0.02 X10*3/uL (0.00-0.03); Imm Gran Pct Auto 0.3 % (0.0-0.4); Lymphocytes Absolute Auto 1.9 X10*3/uL (1.2-4.9); Mean Corpuscular HGB Conc 32.3 g/dl (31.0-36.0); Mean Corpuscular Hemoglobin 28.9 pg (27.0-33.0); Mean Corpuscular Volume 89.5 fL (80.0-98.0); Mean Platelet Volume 10.9 fL (9.4-12.4); Monocytes Absolute Auto 0.8 X10*3/uL (0.1-1.2); Monocytes Percent Auto 12.1 % (2-11); Neutrophils Absolute Auto 3.5 x10*3/uL (2.0-8.3); Neutrophils Percent Auto 54.9 % (45-73); Platelet Count 142 X10*3/uL (160-400); Red Blood Count 2.56 X10*6/uL (4.60-5.80); Red Cell Distribution Width 19.1 % (11.0-16.0); White Blood Count 6.4 X10*3/uL (4.8-10.8)
[2023-01-10 05:06] LABS: Anion Gap 12 (12-20); Blood Urea Nitrogen 18 mg/dL (9-16); Carbon Dioxide 21 mmol/L (22-29); Chloride 105 mmol/L (96-108); Creatinine Clr Calc Pharmacy 59.8; Estimated Glomerular Filt Rate 57; Glucose Random 102 mg/dL (60-115); Potassium 4.2 mmol/L (3.3-5.1); Sodium 134 mmol/L (135-145)
--- NOTE | 2023-01-10 06:46 | P.HPHOSP_ITS ---
History of Present Illness Date of Service: 01/10/23 Chief Complaint: abd swelling This is a 77-year-old male past medical history of HTN, [id number] diabetes, CAD status post PCI, ischemic CVA, and SVT, and recently diagnosed BOBO and recently diagnosis liver cancer per family at [facility] comes into the hospital with complaints of increase anasarca throughout his body as well as left groin pain. Patient states that he is confused by his medical state and is concerned because he has worsening abdominal distension, as well as pain in the groin area as well as lower extremity edema that has worsened over the past few days. He recently had an increase in his Lasix but reports that has not been effective. Patient also reports that he started chemotherapy and has had 3 sessions, choosing to be aggressive with treatment. They also had a GI appointment outpatient but did not like the torch heater in her looking for new torch heater. He otherwise denies any chest pain, no abdominal pain, no nausea or vomiting, no diarrhea constipation, no urinary symptoms and no numbness weakness or tingling. No confusion. On arrival to the ED patient hemodynamically stable Labs are significant for hemoglobin of 7.9 with a baseline of around 10, hematocrit 22.9, INR of 1.3, sodium of 135, BUN of 19, creatinine of 1.32 bilirubin of 4.7, AST of 105, ALT of 42, alk-phos of 294 which is seen to be slightly better than previously, UA negative Abdomen pelvic CT shows cirrhotic liver with varices and moderate volume ascites, liver has heterogeneous attenuation, suspicious for metastatic disease. Bilateral inguinal hernia containing fat and ascitic fluid, anasarca with p resence of diffuse edema of subcutaneous tissue, with edema present in the mesenteric and omental fat Patient will be admitted for further management and monitoring Review of Systems Review of Systems: Yes all other systems are reviewed and are negative [facility] Medical History Ascending aorta dilatation Atherosclerotic cardiovascular disease Essential hypertension Ischemic stroke NSVT (nonsustained ventricular tachycardia) Type 2 diabetes mellitus with unspecified complications Family History Father No problems noted. Mother No problems noted. Surgical History History of cardiac catheterization (~04/2015) Social History Household Members: Family Housing: Unknown / Unable to assess Unable to assess alcohol history related to: Unable to respond and Unknown Alcohol intake: never Patient Tobacco Use Status: Former Tobacco user Quit Date: 20 YEARS AGO Smoked in Last 30 Days: No Use of substances other than those prescribed or required for medical reasons: No Advance Directives: Yes Advance Directives Information Provided: No Advance Directives on File: No Nutrition Risks: No Nutritional Risk Meds Allergies Allergy/AdvReac Type Severity Reaction Status Date / Time No Known Allergies Allergy Verified 01/09/23 12:04 [No Known Allergies*] Active Medications: Current Medications Aspirin (Aspirin 81 Mg Tab.Chew) 81 mg PO DAILY REPLACED BY [facility] Carvedilol (Carvedilol 6.25 Mg Tablet) 6.25 mg PO BID REPLACED BY [facility]; Protocol Last Admin: 01/10/23 02:34 Dose: 6.25 mg Cyanocobalamin (Cyanocobalamin (Vitamin B-12) 1,000 Mcg Tablet) 1,000 mcg PO DAILY REPLACED BY [facility] Docusate Sodium (Docusate Sodium 100 Mg Capsule) 100 mg PO DAILY PRN PRN Reason: Constipation Enoxaparin Sodium (Enoxaparin Sodium 40 Mg/0.4 Ml Syringe) 40 mg SUBCUT BEDTIME REPLACED BY [facility] Last Admin: 01/10/23 02:34 Dose: 40 mg Gabapentin (Gabapentin 100 Mg Capsule) 100 mg PO BEDTIME MEIR Last Admin: 01/10/23 02:34 Dose: 100 mg Lactulose (Lactulose 20 Gm/30 Ml Solution) 30 gm PO BID PRN PRN Reason: Constipation Latanoprost (Latanoprost 0.005 % Ophth Anne 2.5 Ml Drops) 1 drop EYE-BOTH BEDTIME REPLACED BY [facility] Magnesium Oxide (Magnesium Oxide 400 Mg Tablet) 400 mg PO DAILY REPLACED BY [facility] Multivitamins/Vitamin C (Multivitamin Tablet) 1 tab PO DAILY REPLACED BY [facility] Omeprazole (Omeprazole 20 Mg Capsule.Dr) 20 mg PO DAILY PRN PRN Reason: Gastric Reflux Ondansetron HCl (Ondansetron Hcl 4 Mg/2 Ml Vial) 4 mg IVPUSH Q8H PRN PRN Reason: Nausea and Vomiting Oxycodone HCl (Oxycodone Hcl Immed Release 5 Mg Tablet) 5 mg PO Q6H REPLACED BY [facility] Last Admin: 01/10/23 05:25 Dose: 5 mg Rifaximin (Rifaximin 550 Mg Tablet) 550 mg PO BID REPLACED BY [facility] Last Admin: 01/10/23 02:47 Dose: 550 mg Sodium Chloride (0.9 % Sodium Chloride Flush 3 Ml Syringe) 3 ml IVFLUSH QSHIFT REPLACED BY [facility] Last Admin: 01/10/23 02:35 Dose: 3 ml Spironolactone (Spironolactone 25 Mg Tablet) 50 mg PO DAILY REPLACED BY [facility]; Protocol Last Admin: 01/10/23 02:35 Dose: 50 mg Thiamine HCl (Thiamine Hcl 100 Mg Tablet) 100 mg PO DAILY REPLACED BY [facility] Timolol Maleate (Timolol Maleate 0.5 % Oph Anne 5 Ml Drbtl) 1 drop EYE-BOTH BID REPLACED BY [facility] Home Medications Medication Instructions Recorded Confirmed Last Taken Type latanoprost 0.005 % eye drops 1 drp ophthalmic (eye) BEDTIME 01/29/22 01/09/23 01/08/23 History timolol maleate 0.5 % eye drops 1 drp ophthalmic (eye) BID 01/29/22 01/09/23 01/08/23 History aspirin 81 mg chewable tablet 81 mg PO DAILY 01/09/23 01/09/23 01/08/23 History carvedilol 6.25 mg tablet 6.25 mg PO BID 01/09/23 01/09/23 01/08/23 History cyanocobalamin (vitamin B-12) 1,000 mcg PO DAILY 01/09/23 01/09/23 01/08/23 History 1,000 mcg tablet (Vitamin B-12) furosemide 40 mg tablet 40 mg PO DAILY 01/09/23 01/09/23 01/08/23 History gabapentin 100 mg capsule 100 mg PO BEDTIME 01/09/23 01/09/23 01/08/23 History lactulose 20 gram/30 mL oral 30 g PO BID PRN Constipation 01/09/23 01/09/23 Unknown History solution magnesium gluconate 27 mg 27 mg PO DAILY 01/09/23 01/09/23 01/08/23 History magnesium (500 mg) tablet (Mag-G) multivitamin with folic acid 400 1 tab PO DAILY 01/09/23 01/09/23 01/08/23 His tory mcg tablet (Daily-Mel (with folic acid)) omeprazole 10 mg capsule,delayed 10 mg PO DAILY PRN Gastric Reflux 01/09/23 01/09/23 01/08/23 History release oxycodone 5 mg tablet 5 mg PO Q6H 01/09/23 01/09/23 01/09/23 15:00 History spironolactone 50 mg tablet 50 mg PO DAILY 01/09/23 01/09/23 01/08/23 History thiamine HCl (vitamin B1) 100 mg 100 mg PO DAILY 01/09/23 01/09/23 01/08/23 History tablet Physical Exam Vital Signs and Narrative: Vital Signs: Last Vital Signs Temp 98.5 F 01/10/23 02:33 Pulse 103 H 01/10/23 02:33 Resp 16 01/10/23 02:33 BP 137/73 01/10/23 02:33 Pulse Ox 98 01/10/23 02:33 O2 Del Method Room Air 01/10/23 02:33 BMI result Body Mass Index 31.9 Const: General: cooperative and no acute distress Orientation/consciousness: patient oriented x3 Eyes: General: appearance normal, both eyes and all related structures Resp: Effort & Inspection: normal respiratory effort Auscultation: clear to auscultation bilaterally Cardio: Rate: regular rate Rhythm: regular rhythm GI: Other: Abdomen is diffusely ascitic, with no tenderness, rebound or guarding Palpation (GI): Soft to palpation Auscultation: normal bowel sounds Skin: General skin exam: no rashes or lesions noted Neuro: General: patient oriented x3 Cognition (Neuro): normal cognition Extrem: Other: Diffuse anasarca General: Yes normal to inspection and Yes no pedal edema Results Labs 01/10/23 04:23 01/10/23 04:23 Labs: Laboratory Results - last 24 hr 01/09/23 01/09/23 01/09/23 16:09 16:09 16:09 MCV 90.8 MCH 29.0 MCHC 32.0 RDW 19.0 H Plt Count 165 MPV 10.8 Immature Gran % (Auto) 0.3 Neut % (Auto) 55.9 Lymph % (Auto) 31.6 Walker % (Auto) 8.7 Eos % (Auto) 2.9 Baso % (Auto) 0.6 Lymph # (Auto) 2.3 Walker # (Auto) 0.6 Eos # (Auto) 0.2 Baso # (Auto) 0.0 Abs Immat Gran (auto) 0.02 Absolute Neuts (auto) 4.0 Absolute Nucleated RBC 0.000 Nucleated RBC % (auto) 0.0 PT 15.7 H INR 1.3 H APTT 34.4 Anion Gap 13 Estim Creat Clear Calc 55.8 Estimated GFR 53 Random Glucose 140 H Calcium 8.3 L Magnesium 1.9 Total Bilirubin 4.7 H Direct Bilirubin 3.3 H AST 105 H ALT 42 H Alkaline Phosphatase 294 H Ammonia B-Natriuretic Peptide Total Protein 8.5 H Albumin 2.0 L Lipase 12 Urine Color Urine Appearance Urine pH Ur Specific [place] Urine Protein Urine Glucose (UA) Urine Ketones Urine Blood Urine Nitrite Ur Leukocyte Esterase Urine RBC Urine WBC Ur Squamous Epith Cells Urine Bacteria Hyaline Casts Stool Occult Blood Chlam trachomat DNA PCR N.gonorrhoeae DNA (PCR) 01/09/23 01/09/23 01/09/23 16:09 17:21 17:21 MCV MCH MCHC RDW Plt Count MPV Immature Gran % (Auto) Neut % (Auto) Lymph % (Auto) Walker % (Auto) Eos % (Auto) Baso % (Auto) Lymph # (Auto) Walker # (Auto) Eos # (Auto) Baso # (Auto) Abs Immat Gran (auto) Absolute Neuts (auto) Absolute Nucleated RBC Nucleated RBC % (auto) PT INR APTT Anion Gap Estim Creat Clear Calc Estimated GFR Random Glucose Calcium Magnesium Total Bilirubin Direct Bilirubin AST ALT Alkaline Phosphatase Ammonia 45 B-Natriuretic Peptide 328 H Total Protein Albumin Lipase Urine Color Dark Yellow Urine Appearance Clear Urine pH 5.5 Ur Specific [place] 1.020 Urine Protein Trace Urine Glucose (UA) Negative Urine Ketones Trace Urine Blood Negative Urine Nitrite Negative Ur Leukocyte Esterase Trace H Urine RBC 0-2 Urine WBC 0-5 Ur Squamous Epith Cells 0-2 Urine Bacteria None Seen Hyaline Casts 3-5 Stool Occult Blood Chlam trachomat DNA PCR N.gonorrhoeae DNA (PCR) 01/09/23 01/09/23 01/10/23 18:21 18:44 04:23 MCV 89.5 MCH 28.9 MCHC 32.3 RDW 19.1 H Plt Count 142 L MPV 10.9 Immature Gran % (Auto) 0.3 Neut % (Auto) 54.9 Lymph % (Auto) 29.0 Walker % (Auto) 12.1 H Eos % (Auto) 3.1 Baso % (Auto) 0.6 Lymph # (Auto) 1.9 Walker # (Auto) 0.8 Eos # (Auto) 0.2 Baso # (Auto) 0.0 Abs Immat Gran (auto) 0.02 Absolute Neuts (auto) 3.5 Absolute Nucleated RBC 0.000 Nucleated RBC % (auto) 0.0 PT INR APTT Anion Gap Estim Creat Clear Calc Estimated GFR Random Glucose Calcium Magnesium Total Bilirubin Direct Bilirubin AST ALT Alkaline Phosphatase Ammonia B-Natriuretic Peptide Total Protein Albumin Lipase Urine Color Urine Appearance Urine pH Ur Specific [place] Urine Protein Urine Glucose (UA) Urine Ketones Urine Blood Urine Nitrite Ur Leukocyte Esterase Urine RBC Urine WBC Ur Squamous Epith Cells Urine Bacteria Hyaline Casts Stool Occult Blood NEGATIVE Chlam trachomat DNA PCR NOT DETECTED N.gonorrhoeae DNA (PCR) NOT DETECTED 01/10/23 04:23 MCV MCH MCHC RDW Plt Count MPV Immature Gran % (Auto) Neut % (Auto) Lymph % (Auto) Walker % (Auto) Eos % (Auto) Baso % (Auto) Lymph # (Auto) Walker # (Auto) Eos # (Auto) Baso # (Auto) Abs Immat Gran (auto) Absolute Neuts (auto) Absolute Nucleated RBC Nucleated RBC % (auto) PT INR APTT Anion Gap 12 Estim Creat Clear Calc 59.8 Estimated GFR 57 Random Glucose 102 Calcium 8.0 L Magnesium Total Bilirubin Direct Bilirubin AST ALT Alkaline Phosphatase Ammonia B-Natriuretic Peptide Total Protein Albumin Lipase Urine Color Urine Appearance Urine pH Ur Specific [place] Urine Protein Urine Glucose (UA) Urine Ketones Urine Blood Urine Nitrite Ur Leukocyte Esterase Urine RBC Urine WBC Ur Squamous Epith Cells Urine Bacteria Hyaline Casts Stool Occult Blood Chlam trachomat DNA PCR N.gonorrhoeae DNA (PCR) Imaging Radiologist's Impressions: Impressions Abdomen/Pelvis CT 01/09/23 17:48 IMPRESSION: * Cirrhotic liver with varices and moderate volume ascites. * Liver has heterogeneous attenuation. Multiple hypodense foci are present within the liver; these are suspicious for metastatic disease. Also, there appears to be soft tissue attenuation involving the common hepatic duct. Cholangiocarcinoma is possible. The hypodensity in the central liver involving region of right hepatic duct convergence with left hepatic duct could represent infiltrative tumor. There appears to be a chronically enlarged lymph node in the portacaval region. MR imaging of the liver without and with intravenous contrast may be helpful to further characterize the hepatobiliary disease. * Cholelithiasis. * Bilateral inguinal hernias contain fat and ascitic fluid. * Anasarca with presence of diffuse edema of subcutaneous tissues. Also, edema is present within mesenteric and omental fat. Scrotum Ultrasound 01/09/23 18:45 IMPRESSION: 1. No testicular mass or torsion is seen bilaterally. 2. There is no bilateral hydrocele or varicocele. 3. A left inguinal hernia suspected on these images. Note is made of moderately large bilateral inguinal hernias containing both fat and fluid, noted on the CT abdomen and pelvis dated 01/09/2023 (3:94). Scrotum Ultrasound 01/09/23 18:45 IMPRESSION: 1. No testicular mass or torsion is seen bilaterally. 2. There is no bilateral hydrocele or varicocele. 3. A left inguinal hernia suspected on these images. Note is made of moderately large bilateral inguinal hernias containing both fat and fluid, noted on the CT abdomen and pelvis dated 01/09/2023 (3:94). Assessment and Plan (1) Anasarca: Status: Acute (2) Bilateral inguinal hernia: Status: Acute (3) Pedal edema: Status: Acute (4) BOBO (nonalcoholic steatohepatitis): Status: Acute Plan 77-year-old male with recently diagnosed Isabella liver cirrhosis as well as liver metastatic disease comes into the hospital with anasarca # worsening anasarca - will place on IV Lasix, continue spironolactone - GI consulted for further recommendation - continue lactulose - monitor I&O - will also consult IR for paracentesis # BOBO cirrhosis - no confusion - liver cirrhosis secondary to BOBO - GI consulted - continue lactulose - monitor BMs - continue refraction # metastatic liver cancer - patient and family state that recently started chemotherapy, status post 3 sessions, - follow-up patient with Hematology-Oncology # history of CAD - continue carvedilol DVT prophylaxis: Heparin subQ Time Spent With Patient Time: Total time managing care of this patient today ____ minutes. Quality Stroke Does the patient have a stroke diagnosis?: No VTE Prior VTE?: No VTE Risk Level:: Medical - moderate - high VTE Device Contraindication: Treatment Not Indicated VTE Drug Contraindication: N/A - Med Ordered
--- NOTE | 2023-01-10 07:23 | PM.GICN ---
History of Present Illness Data of Consult Service Date: 01/10/23 Requesting physician: Asia Morales Primary Care Provider: Bryan Castrejon MD HPI Reason for consult: Ascites despite lasix and spironolactone 77 YM with HTN, NIDDM, CAD status post PCI, ischemic CVA, and SVT, and recently diagnosed BOBO and liver cancer per family at [facility] seen at [facility] ED on 01/09/23 with complaints of generalized anasarca and left groin pain.? Hx obtained from the pt's who was at the bedside: Patient stated that he is confused and has worsening abdominal distension, as well as pain in the groin area as well as lower extremity edema that has worsened over the past few days.? He recently had an increase in his Lasix but reports that has not been effective.? Pt takes lactulose once a day for hepatic encephalopathy (since he had 7-10 BMs on taking it 3 times a day) Patient is followed by Dr Bustillos (Oncologist at [facility] [place] [place]) and reported that he started chemotherapy and has had 3 sessions. Chemotherapy infusions are every 2 weeks and next appt is on 01/15/23 for his next chemotherapy infusion.? 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 Pt denied chest pain, nausea or vomiting, diarrhea constipation, urinary symptoms and numbness weakness or tingling.? No confusion. On arrival to the ED patient hemodynamically stable Labs are significant for hemoglobin of 7.9 with a baseline of around 10, hematocrit 22.9, INR of 1.3, sodium of 135, BUN of 19, creatinine of 1.32 bilirubin of 4.7, AST of 105, ALT of 42, alk-phos of 294 which is seen to be slightly better than previously, UA negative 01/09/[address] SCAN SHOWED: ? Cirrhotic liver with varices and moderate volume ascites. *? Liver has heterogeneous attenuation. Multiple hypodense foci are present within the liver; these are suspicious for metastatic disease. Also, there appears to be soft tissue attenuation involving the common hepatic duct. Cholangiocarcinoma is possible. The hypodensity in the central liver involving region of right hepatic duct convergence with left hepatic duct could represent infiltrative tumor. There appears to be a chronically enlarged lymph node in the portacaval region. MR imaging of the liver without and with intravenous contrast may be helpful to further characterize the hepatobiliary disease. *? Cholelithiasis. *? Bilateral inguinal hernias contain fat and ascitic fluid. *? Anasarca with presence of diffuse edema of subcutaneous tissues. Also, edema is present within mesenteric and omental fat. PAST GI HISTORY BY REVIEW OF MEDICAL RECORDS: Patient was seen in consultation during hospitalization in Oct, 2022: Pt has had elevated LFTs for the past 2 years and his PCP prescribed Pioglitazone for DM and elevated LFTs. Per [t's family - pt hardly took the medication Pt had a colonoscopy 2-[address] Llanes (GI in [place]) and polyps were removed. Per family patient's PCP informed them that patient's liver function was altered but they are unaware if he has cirrhosis.? Patient is noncompliant with medications.? Family denied significant alcohol use or a history of hepatitis.? Pt was hospitalized at [facility] in Oct, 2022 with hepatic encephalopathy Labs during pevious admission showed elevated creatinine of 2.2.? Hemoglobin was 10 (Baseline hemoglobin from 2019 was 14, 09/17/22 H & H was 11.5 & 35.9) Pt was started on IV PPI and Octreotide.? Patient admited to using excessive amount of Advil and denied alcohol abuse.? Aspirin and Tylenol was negative.? Hepatitis profile was negative for Acute Hep A, Hep B and C 10/2022 EGD SHOWED: ESOPHAGUS: Grade 2 esophageal varices without stigmata of recent bleeding STOMACH: Multiple chronic appearing antral erosions - likely related to NSAID use. A large 3 cms varix with in the gastric fundus. DUODENUM:? A few 4-5 mm erosions in the duodenal bulb No blood or active bleeding noted in the UGI tract during EGD. UGI bleeding likely from gastric and duodenal erosions versus gastric varix. Plan: Continue IV PPI and octreotide infusion. Transfer to tertiary care center for evaluation of gastric varix with doppler US and treatment with cyanoacrylate glue. Review of Systems Review of Systems: Yes all other systems are reviewed and are negative Neurologic: Reports confusion Psychiatric: Psychiatric: Reports confusion PMFSH Past Medical History Medical History Ascending aorta dilatation Atherosclerotic cardiovascular disease Essential hypertension Ischemic stroke NSVT (nonsustained ventricular tachycardia) Type 2 diabetes mellitus with unspecified complications Family History Family History Father No problems noted. Mother No problems noted. Surgical History Surgical History History of cardiac catheterization (~04/2015) Social History Social History Household Members: Spouse Housing: House Do you presently have visiting nurse or other home services: Yes Unable to assess alcohol history related to: Unable to respond and Unknown Alcohol intake: never Patient Tobacco Use Status: Former Tobacco user Quit Date: 15 years ago Cigarettes Per Day: 10 Second Hand Smoke Exposure: No Advance Directives Date on File: 01/10/23 service: No Meds Allergies Allergy/AdvReac Type Severity Reaction Status Date / Time No Known Allergies Allergy Verified 01/09/23 12:04 [No Known Allergies*] Active Medications: Current Medications Aspirin (Aspirin 81 Mg Tab.Chew) 81 mg PO DAILY [facility] Carvedilol (Carvedilol 6.25 Mg Tablet) 6.25 mg PO BID MEIR; Protocol Last Admin: 01/10/23 02:34 Dose: 6.25 mg Cyanocobalamin (Cyanocobalamin (Vitamin B-12) 1,000 Mcg Tablet) 1,000 mcg PO DAILY [facility] Docusate Sodium (Docusate Sodium 100 Mg Capsule) 100 mg PO DAILY PRN PRN Reason: Constipation Enoxaparin Sodium (Enoxaparin Sodium 40 Mg/0.4 Ml Syringe) 40 mg SUBCUT BEDTIME MEIR Last Admin: 01/10/23 02:34 Dose: 40 mg Furosemide (Furosemide 40 Mg/4 Ml Vial) 40 mg IVPUSH DAILY [facility]; Protocol Gabapentin (Gabapentin 100 Mg Capsule) 100 mg PO BEDTIME MEIR Last Admin: 01/10/23 02:34 Dose: 100 mg Lactulose (Lactulose 20 Gm/30 Ml Solution) 30 gm PO TID PRN PRN Reason: Constipation Latanoprost (Latanoprost 0.005 % Ophth Anne 2.5 Ml Drops) 1 drop EYE-BOTH BEDTIME [facility]IR Magnesium Oxide (Magnesium Oxide 400 Mg Tablet) 400 mg PO DAILY [facility] Multivitamins/Vitamin C (Multivitamin Tablet) 1 tab PO DAILY [facility] Omeprazole (Omeprazole 20 Mg Capsule.Dr) 20 mg PO DAILY PRN PRN Reason: Gastric Reflux Ondansetron HCl (Ondansetron Hcl 4 Mg/2 Ml Vial) 4 mg IVPUSH Q8H PRN PRN Reason: Nausea and Vomiting Oxycodone HCl (Oxycodone Hcl Immed Release 5 Mg Tablet) 5 mg PO Q6H [facility] Last Admin: 01/10/23 05:25 Dose: 5 mg Rifaximin (Rifaximin 550 Mg Tablet) 550 mg PO BID [facility] Last Admin: 01/10/23 02:47 Dose: 550 mg Sodium Chloride (0.9 % Sodium Chloride Flush 3 Ml Syringe) 3 ml IVFLUSH QSHIFT [facility] Last Admin: 01/10/23 02:35 Dose: 3 ml Spironolactone (Spironolactone 25 Mg Tablet) 50 mg PO DAILY [facility]; Protocol Last Admin: 01/10/23 02:35 Dose: 50 mg Thiamine HCl (Thiamine Hcl 100 Mg Tablet) 100 mg PO DAILY [facility] Timolol Maleate (Timolol Maleate 0.5 % Oph Anne 5 Ml Drbtl) 1 drop EYE-BOTH BID [facility] Home Medications Medication Instructions Recorded Confirmed Last Taken Type latanoprost 0.005 % eye drops 1 drp ophthalmic (eye) BEDTIME 01/29/22 01/09/23 01/08/23 History timolol maleate 0.5 % eye drops 1 drp ophthalmic (eye) BID 01/29/22 01/09/23 01/08/23 History aspirin 81 mg chewable tablet 81 mg PO DAILY 01/09/23 01/09/23 01/08/23 History carvedilol 6.25 mg tablet 6.25 mg PO BID 01/09/23 01/09/23 01/08/23 History cyanocobalamin (vitamin B-12) 1,000 mcg PO DAILY 01/09/23 01/09/23 01/08/23 History 1,000 mcg tablet (Vitamin B-12) furosemide 40 mg tablet 40 mg PO DAILY 01/09/23 01/09/23 01/08/23 History gabapentin 100 mg capsule 100 mg PO BEDTIME 01/09/23 01/09/23 01/08/23 History lactulose 20 gram/30 mL oral 30 g PO BID PRN Constipation 01/09/23 01/09/23 Unknown History solution magnesium gluconate 27 mg 27 mg PO DAILY 01/09/23 01/09/23 01/08/23 History magnesium (500 mg) tablet (Mag-G) multivitamin with folic acid 400 1 tab PO DAILY 01/09/23 01/09/23 01/08/23 History mcg tablet (Daily-Mel (with folic acid)) omeprazole 10 mg capsule,delayed 10 mg PO DAILY PRN Gastric Reflux 01/09/23 01/09/23 01/08/23 History release oxycodone 5 mg tablet 5 mg PO Q6H 01/09/23 01/09/23 01/09/23 15:00 History spironolactone 50 mg tablet 50 mg PO DAILY 01/09/23 01/09/23 01/08/23 History thiamine HCl (vitamin B1) 100 mg 100 mg PO DAILY 01/09/23 01/09/23 01/08/23 History tablet Physical Exam Vital Signs: Vital Signs: Last Vital Signs Temp 98.5 F 01/10/23 02:33 Pulse 103 H 01/10/23 02:33 Resp 16 01/10/23 02:33 BP 137/73 01/10/23 02:33 Pulse Ox 98 01/10/23 02:33 O2 Del Method Room Air 01/10/23 02:33 BMI result Body Mass Index 31.9 Const: General: no acute distress, confusion and ill appearing Nutritional Appearance: obese Orientation/consciousness: confusion Limitations: physical limitations HEENT: Head: Yes normal to inspection Ears: hearing grossly normal bilaterally Eyes: Sclerae: scleral abnormal (Jaundiced) Pupils: Equal, round and reactive pupils present Neck: Neck: Yes normal visual inspection Chest: Chest palpation & inspection: normal inspection of the chest Resp: Effort & Inspection: normal respiratory effort Auscultation: clear to auscultation bilaterally Cardio: Palpation: normal PMI Rate: regular rate Rhythm: regular rhythm Heart sounds: S1 normal heart sound present, S2 normal heart sound present and no murmurs GI: Inspection: Yes distended (Due to ascites) Palpation (GI): Soft to palpation and Tenderness to palpation present (GI) Percussion: Yes Fluid wave present Auscultation: normal bowel sounds Rectal Exam - Male: Yes deferred Skin: General skin exam: no rashes or lesions noted Neuro: General: gait normal, moves all extremities and confusion Cranial nerves: Yes Equal, round and reactive pupils present Extrem: General: Yes pedal edema Psych: Appearance: grossly normal Mental Status: mental status grossly normal Results Labs 01/10/23 04:23 01/10/23 04:23 Labs: Short CBC 01/09/23 01/10/23 Range/Units 16:09 04:23 WBC 7.1 6.4 (4.8-10.8) X10*3/uL Hgb 7.9 L D 7.4 L (14.0-18.0) g/dl Hct 24.7 L 22.9 L (42.0-52.0) % Plt Count 165 142 L (160-400) X10*3/uL BMP 01/09/23 01/10/23 16:09 04:23 Sodium 135 134 L Potassium 4.4 D 4.2 Chloride 105 105 Carbon Dioxide 21 L 21 L BUN 19 H 18 H Creatinine 1.32 1.23 Calcium 8.3 L 8.0 L Liver Function 01/09/23 Range/Units 16:09 Total Bilirubin 4.7 H (0.0-1.0) mg/dL Direct Bilirubin 3.3 H (0.0-0.5) mg/dL AST 105 H (5-37) U/L ALT 42 H (0-40) U/L Alkaline Phosphatase 294 H (39-117) U/L Albumin 2.0 L (3.5-5.0) g/dL Urine 01/09/23 Range/Units 17:21 Urine Color Dark Yellow Urine Appearance Clear Urine pH 5.5 (5.0-9.0) Ur Specific [place] 1.020 (1.005-1.025) Urine Protein Trace (Neg-Trace) mg/dL Urine Glucose (UA) Negative (Negative) mg/dL Assessment and Plan (1) Gastric varix: Status: Inactive (2) Decompensated hepatic cirrhosis: Status: Deleted (3) HCC (hepatocellular carcinoma): Status: Inactive Plan 77 YM with ESLD due to BOBO complicated by HE, refractory ascites and recently diagnosed liver cancer Pt admitted on 01/09/23 with complaints of generalized anasarca and left groin pain related to tense ascites.? Symptoms have improved after therapeutic paracentesis Pt was diagnosed with HCC at [facility] (transferred from [facility]) He elected to be treated by Dr Bustillos (Oncologist at [facility] [place] [place]) and reported that he started chemotherapy and has had 3 sessions. Chemotherapy infusions are every 2 weeks and next appt is on 01/15/23 for his next chemotherapy infusion.? Abdominal CT scan showed: Cirrhotic liver with varices and moderate volume ascites. *? Liver has heterogeneous attenuation. Multiple hypodense foci are present within the liver; these are suspicious for metastatic disease. Also, there appears to be soft tissue attenuation involving the common hepatic duct. Cholangiocarcinoma is possible. The hypodensity in the central liver involving region of right hepatic duct convergence with left hepatic duct could represent infiltrative tumor. There appears to be a chronically enlarged lymph node in the portacaval region. RECOMMENDATIONS: 1. Continue Rifaximin twice daily and lactulose once a day for hepatic encephalopathy. 2. Continue Lasix and spironolactone for ascites. 3. MRCP/MRI for evaluation of suspected mass in the common hepatic duct - ? HCC versus cholangiocarcinoma 4. AFP, CEA and CA 19-9 added to labs 5. Pt can fu with Oncology at [facility] [place] [place] after discharge Time Spent With Patient Time: Total time managing care of this patient today ____ minutes. Procedures Date of Service Date of Service: 01/27/23
[2023-01-10] MEDS: Cyanocobalamin (Vitamin B-12) 1,000 MCG TABLET 1000 MCG PO (08:10)
[2023-01-10] MEDS: Furosemide 40 MG/4 ML VIAL IVPUSH (08:10)
[2023-01-10] MEDS: Multivitamin TABLET 1 TAB PO (08:10)
[2023-01-10] MEDS: Magnesium Oxide 400 MG TABLET PO (08:11)
[2023-01-10] MEDS: Thiamine HCL 100 MG TABLET PO (08:11)
[2023-01-10] MEDS: Aspirin 81 MG TAB.CHEW PO (08:11)
[2023-01-10 08:49] LABS: Iron 53 mcg/dL (45-160); Percent Iron Saturation 26 % (15-50); Total Iron Binding Capacity 207 mcg/dL (228-428); Unsaturated Iron Binding 154 ug/dL
[2023-01-10 09:29] LABS: Folate 14.8 ng/mL (> or = 4.0); Vitamin B12 > 2000 pg/mL (200-900)
--- NOTE | 2023-01-10 10:12 | PC.NURSE ---
patient picked up by family life educator to go to IR for paracentesis
--- NOTE | 2023-01-10 10:23 | MHC.CM.PN ---
Met with patient and daughter/HCP Chaparrita in regards to discharge planning. Patient lives with his , Jaimie, ambulates independently and [facility]. PCP verified. Copy of HCP verified to be on file. Patient received 3 Moderna vaccines. IMM explained and signed. Patient's family will transport him home when medically stable. Family has been trying to work with Dev[facility] to add physical therapy and occupational therapy for the past 3 weeks. Anticipate patient will d/c home with resumption of [facility] for longterm and addition of physical therapy and occupational therapy. Continue to monitor for d/c needs.
--- NOTE | 2023-01-10 11:19 | PC.NURSE ---
patient returned from IR paracentesis, Vital signs stable, respirations equal and unlabored, no signs of distress.
[2023-01-10] MEDS: Lidocaine HCl 1 % 20 ML VIAL 5 ML SUBCUT (11:25)
[2023-01-10 12:08] LABS: MN% 80.3 %; PMN% 19.7 %; RBC Peritoneal Fluid < 0.002 X10*6/uL; WBC Peritoneal Fluid 0.281 X10*3/uL
[2023-01-10 13:32] LABS: BF Shift QC OK YES; Lymphocyte Peritoneal Fl 23 %; Monocytes Peritoneal Fl 14 %; Neutrophils Peritoneal Fluid 23 %; Other Peritioneal Fl 40 %
--- NOTE | 2023-01-10 15:43 | HO.PM.IMPN ---
Subjective Subjective Date of Service: 01/10/23 Interval History: seen and examined this morning follow up for ascites, groin pain reporting b/l groin pain - doesn't appear to be new. no abdominal pain leg edema persists Review of Systems Review of Systems: Yes all other systems are reviewed and are negative Constitutional Constitutional: Denies chills and Denies fever(s) ENT Ears, Nose, Mouth, and Throat: Denies dizziness Cardiovascular Cardiovascular: Denies chest pain and Denies dyspnea Respiratory Respiratory: Denies dyspnea Gastrointestinal Gastrointestinal: Denies abdominal pain Neurologic Neurologic: Denies dizziness Physical Exam Vital Signs: Vital Signs: Last Vital Signs Temp 97 F 01/10/23 14:22 Pulse 78 01/10/23 14:22 Resp 20 01/10/23 14:22 BP 112/80 01/10/23 14:22 Pulse Ox 97 01/10/23 14:22 O2 Del Method Room Air 01/10/23 14:22 BMI result Body Mass Index 31.9 Const: General: cooperative, no acute distress, alert and awake Nutritional Appearance: overweight Orientation/consciousness: patient oriented x3 Resp: Effort & Inspection: normal respiratory effort, able to speak in complete sentences, no respiratory distress and no use of accessory muscles Cardio: Rate: regular rate Heart sounds: S1 normal heart sound present and S2 normal heart sound present GI: Inspection: No distended Palpation (GI): Soft to palpation and nontender Neuro: General: patient oriented x3, moves all extremities and CN's II-XI intact bilaterally Extrem: Other: b/l lower extremity pitting edema Objective Data Active Medications Aspirin (Aspirin 81 Mg Tab.Chew) 81 mg PO DAILY [facility] Last Admin: 01/10/23 08:11 Dose: 81 mg Documented By: RODO Carvedilol (Carvedilol 6.25 Mg Tablet) 6.25 mg PO BID [facility]; Protocol Last Admin: 01/10/23 08:11 Dose: 6.25 mg Documented By: RODO Cyanocobalamin (Cyanocobalamin (Vitamin B-12) 1,000 Mcg Tablet) 1,000 mcg PO DAILY [facility] Last Admin: 01/10/23 08:10 Dose: 1,000 mcg Documented By: RODO Docusate Sodium (Docusate Sodium 100 Mg Capsule) 100 mg PO DAILY PRN PRN Reason: Constipation Enoxaparin Sodium (Enoxaparin Sodium 40 Mg/0.4 Ml Syringe) 40 mg SUBCUT BEDTIME [facility] Last Admin: 01/10/23 02:34 Dose: 40 mg Documented By: JAY Furosemide (Furosemide 40 Mg/4 Ml Vial) 40 mg IVPUSH DAILY [facility]; Protocol Last Admin: 01/10/23 08:10 Dose: 40 mg Documented By: RODO Gabapentin (Gabapentin 100 Mg Capsule) 100 mg PO BEDTIME [facility] Last Admin: 01/10/23 02:34 Dose: 100 mg Documented By: JAY Lactulose (Lactulose 20 Gm/30 Ml Solution) 30 gm PO TID PRN PRN Reason: Constipation Latanoprost (Latanoprost 0.005 % Ophth Anne 2.5 Ml Drops) 1 drop EYE-BOTH BEDTIME [facility] Magnesium Oxide (Magnesium Oxide 400 Mg Tablet) 400 mg PO DAILY [facility] Last Admin: 01/10/23 08:11 Dose: 400 mg Documented By: RODO Multivitamins/Vitamin C (Multivitamin Tablet) 1 tab PO DAILY [facility] Last Admin: 01/10/23 08:10 Dose: 1 tab Documented By: RODO Omeprazole (Omeprazole 20 Mg Capsule.Dr) 20 mg PO DAILY PRN PRN Reason: Gastric Reflux Ondansetron HCl (Ondansetron Hcl 4 Mg/2 Ml Vial) 4 mg IVPUSH Q8H PRN PRN Reason: Nausea and Vomiting Oxycodone HCl (Oxycodone Hcl Immed Release 5 Mg Tablet) 5 mg PO Q6H [facility] Last Admin: 01/10/23 11:28 Dose: 5 mg Documented By: RODO Rifaximin (Rifaximin 550 Mg Tablet) 550 mg PO BID [facility] Last Admin: 01/10/23 08:38 Dose: 550 mg Documented By: RODO Sodium Chloride (0.9 % Sodium Chloride Flush 3 Ml Syringe) 3 ml IVFLUSH QSHIFT [facility] Last Admin: 01/10/23 08:17 Dose: 3 ml Documented By: RODO Spironolactone (Spironolactone 25 Mg Tablet) 50 mg PO DAILY [facility]; Protocol Last Admin: 01/10/23 09:34 Dose: 50 mg Documented By: RODO Thiamine HCl (Thiamine Hcl 100 Mg Tablet) 100 mg PO DAILY [facility] Last Admin: 01/10/23 08:11 Dose: 100 mg Documented By: RODO Timolol Maleate (Timolol Maleate 0.5 % Oph Anne 5 Ml Drbtl) 1 drop EYE-BOTH BID [facility] Labs 01/10/23 04:23 01/10/23 04:23 Labs: Laboratory Results - last 24 hr 01/09/23 01/09/23 01/09/23 16:09 16:09 16:09 MCV 90.8 MCH 29.0 MCHC 32.0 RDW 19.0 H Plt Count 165 MPV 10.8 Immature Gran % (Auto) 0.3 Neut % (Auto) 55.9 Lymph % (Auto) 31.6 [place] % (Auto) 8.7 Eos % (Auto) 2.9 Baso % (Auto) 0.6 Lymph # (Auto) 2.3 [place] # (Auto) 0.6 Eos # (Auto) 0.2 Baso # (Auto) 0.0 Abs Immat Gran (auto) 0.02 Absolute Neuts (auto) 4.0 Absolute Nucleated RBC 0.000 Nucleated RBC % (auto) 0.0 PT 15.7 H INR 1.3 H APTT 34.4 Anion Gap 13 Estim Creat Clear Calc 55.8 Estimated GFR 53 Random Glucose 140 H Calcium 8.3 L Magnesium 1.9 Iron TIBC % Saturation Unsat Iron Binding Total Bilirubin 4.7 H Direct Bilirubin 3.3 H AST 105 H ALT 42 H Alkaline Phosphatase 294 H Ammonia B-Natriuretic Peptide Total Protein 8.5 H Albumin 2.0 L Lipase 12 Carcinoembryonic Ag Vitamin B12 Folate Urine Color Urine Appearance Urine pH Ur Specific [place] Urine Protein Urine Glucose (UA) Urine Ketones Urine Blood Urine Nitrite Ur Leukocyte Esterase Urine RBC Urine WBC Ur Squamous Epith Cells Urine Bacteria Hyaline Casts Peritoneal WBC Peritoneal RBC Periton Neutrophils Periton Lymphocytes Peritoneal Monocytes Peritoneal Other Cells Pleural WBC Pleural RBC Pleural Neutrophils Pleural Lymphocytes Pleural Monocytes Pleural Eosinophils Pleural Basophils Pleural Other Cells Stool Occult Blood Chlam trachomat DNA PCR N.gonorrhoeae DNA (PCR) 01/09/23 01/09/23 01/09/23 16:09 17:21 17:21 MCV MCH MCHC RDW Plt Count MPV Immature Gran % (Auto) Neut % (Auto) Lymph % (Auto) [place] % (Auto) Eos % (Auto) Baso % (Auto) Lymph # (Auto) [place] # (Auto) Eos # (Auto) Baso # (Auto) Abs Immat Gran (auto) Absolute Neuts (auto) Absolute Nucleated RBC Nucleated RBC % (auto) PT INR APTT Anion Gap Estim Creat Clear Calc Estimated GFR Random Glucose Calcium Magnesium Iron TIBC % Saturation Unsat Iron Binding Total Bilirubin Direct Bilirubin AST ALT Alkaline Phosphatase Ammonia 45 B-Natriuretic Peptide 328 H Total Protein Albumin Lipase Carcinoembryonic Ag Vitamin B12 Folate Urine Color Dark Yellow Urine Appearance Clear Urine pH 5.5 Ur Specific [place] 1.020 Urine Protein Trace Urine Glucose (UA) Negative Urine Ketones Trace Urine Blood Negative Urine Nitrite Negative Ur Leukocyte Esterase Trace H Urine RBC 0-2 Urine WBC 0-5 Ur Squamous Epith Cells 0-2 Urine Bacteria None Seen Hyaline Casts 3-5 Peritoneal WBC Peritoneal RBC Periton Neutrophils Periton Lymphocytes Peritoneal Monocytes Peritoneal Other Cells Pleural WBC Pleural RBC Pleural Neutrophils Pleural Lymphocytes Pleural Monocytes Pleural Eosinophils Pleural Basophils Pleural Other Cells Stool Occult Blood Chlam trachomat DNA PCR N.gonorrhoeae DNA (PCR) 01/09/23 01/09/23 01/10/23 18:21 18:44 04:23 MCV 89.5 MCH 28.9 MCHC 32.3 RDW 19.1 H Plt Count 142 L MPV 10.9 Immature Gran % (Auto) 0.3 Neut % (Auto) 54.9 Lymph % (Auto) 29.0 [place] % (Auto) 12.1 H Eos % (Auto) 3.1 Baso % (Auto) 0.6 Lymph # (Auto) 1.9 [place] # (Auto) 0.8 Eos # (Auto) 0.2 Baso # (Auto) 0.0 Abs Immat Gran (auto) 0.02 Absolute Neuts (auto) 3.5 Absolute Nucleated RBC 0.000 Nucleated RBC % (auto) 0.0 PT INR APTT Anion Gap Estim Creat Clear Calc Estimated GFR Random Glucose Calcium Magnesium Iron TIBC % Saturation Unsat Iron Binding Total Bilirubin Direct Bilirubin AST ALT Alkaline Phosphatase Ammonia B-Natriuretic Peptide Total Protein Albumin Lipase Carcinoembryonic Ag Vitamin B12 Folate Urine Color Urine Appearance Urine pH Ur Specific [place] Urine Protein Urine Glucose (UA) Urine Ketones Urine Blood Urine Nitrite Ur Leukocyte Esterase Urine RBC Urine WBC Ur Squamous Epith Cells Urine Bacteria Hyaline Casts Peritoneal WBC Peritoneal RBC Periton Neutrophils Periton Lymphocytes Peritoneal Monocytes Peritoneal Other Cells Pleural WBC Pleural RBC Pleural Neutrophils Pleural Lymphocytes Pleural Monocytes Pleural Eosinophils Pleural Basophils Pleural Other Cells Stool Occult Blood NEGATIVE Chlam trachomat DNA PCR NOT DETECTED N.gonorrhoeae DNA (PCR) NOT DETECTED 01/10/23 01/10/23 01/10/23 04:23 07:57 07:57 MCV MCH MCHC RDW Plt Count MPV Immature Gran % (Auto) Neut % (Auto) Lymph % (Auto) [place] % (Auto) Eos % (Auto) Baso % (Auto) Lymph # (Auto) [place] # (Auto) Eos # (Auto) Baso # (Auto) Abs Immat Gran (auto) Absolute Neuts (auto) Absolute Nucleated RBC Nucleated RBC % (auto) PT INR APTT Anion Gap 12 Estim Creat Clear Calc 59.8 Estimated GFR 57 Random Glucose 102 Calcium 8.0 L Magnesium Iron 53 TIBC 207 L % Saturation 26 Unsat Iron Binding 154 Total Bilirubin Direct Bilirubin AST ALT Alkaline Phosphatase Ammonia B-Natriuretic Peptide Total Protein Albumin Lipase Carcinoembryonic Ag 2.50 Vitamin B12 > 2000 H Folate 14.8 Urine Color Urine Appearance Urine pH Ur Specific [place] Urine Protein Urine Glucose (UA) Urine Ketones Urine Blood Urine Nitrite Ur Leukocyte Esterase Urine RBC Urine WBC Ur Squamous Epith Cells Urine Bacteria Hyaline Casts Peritoneal WBC Peritoneal RBC Periton Neutrophils Periton Lymphocytes Peritoneal Monocytes Peritoneal Other Cells Pleural WBC Pleural RBC Pleural Neutrophils Pleural Lymphocytes Pleural Monocytes Pleural Eosinophils Pleural Basophils Pleural Other Cells Stool Occult Blood Chlam trachomat DNA PCR N.gonorrhoeae DNA (PCR) 01/10/23 01/10/23 10:15 10:15 MCV MCH MCHC RDW Plt Count MPV Immature Gran % (Auto) Neut % (Auto) Lymph % (Auto) [place] % (Auto) Eos % (Auto) Baso % (Auto) Lymph # (Auto) [place] # (Auto) Eos # (Auto) Baso # (Auto) Abs Immat Gran (auto) Absolute Neuts (auto) Absolute Nucleated RBC Nucleated RBC % (auto) PT INR APTT Anion Gap Estim Creat Clear Calc Estimated GFR Random Glucose Calcium Magnesium Iron TIBC % Saturation Unsat Iron Binding Total Bilirubin Direct Bilirubin AST ALT Alkaline Phosphatase Ammonia B-Natriuretic Peptide Total Protein Albumin Lipase Carcinoembryonic Ag Vitamin B12 Folate Urine Color Urine Appearance Urine pH Ur Specific [place] Urine Protein Urine Glucose (UA) Urine Ketones Urine Blood Urine Nitrite Ur Leukocyte Esterase Urine RBC Urine WBC Ur Squamous Epith Cells Urine Bacteria Hyaline Casts Peritoneal WBC 0.281 Peritoneal RBC < 0.002 Periton Neutrophils 23 Periton Lymphocytes 23 Peritoneal Monocytes 14 Peritoneal Other Cells 40 Pleural WBC Cancelled Pleural RBC Cancelled Pleural Neutrophils Cancelled Pleural Lymphocytes Cancelled Pleural Monocytes Cancelled Pleural Eosinophils Cancelled Pleural Basophils Cancelled Pleural Other Cells Cancelled Stool Occult Blood Chlam trachomat DNA PCR N.gonorrhoeae DNA (PCR) Assessment and Plan (1) Bilateral inguinal hernia: Status: Acute (2) Cancer of liver: Status: Acute Plan 77-year-old male with BOBO, HCC who presents with groin pain and worsening leg edema BOBO cirrhosis h/o esophageal varices s/p embolization at [facility] in october s/p paracentesis with removal of 2.4L of fluid - follow fluid studies - continue lactulose, xifaxan metastatic HCC [place] [facility] [place] follow up anasarca r/t above HCC/cirrhosis recent admit [place] [facility] for the same, dose of lasix increased to 40 and aldactone 50 continue IV lasix, aldactone soft tissue attenuation involving common hepatic duct seen by GI, rec to obtain MRCP/MRI to eval for cholangiocarcinoma groin pain no testicular mass or torsion CT showing b/l inguinal hernias chronic normocytic anemia likely related to chronic dz H/H stable when compared to labs from [facility] [place] no evidence of bleeding follow CBC thrombocytopenia r/t liver dz history of CAD continue carvedilol, aspirin DM SSI, POCs not on baseline meds DVT prophylaxis: lovenox attending - dr. chávez requires ongoing inpatient hospitalization for management of anasarca and ascites Time Spent With Patient Time: Total time managing care of this patient today ____ minutes. Quality Stroke Does the patient have a stroke diagnosis?: No VTE Prior VTE?: No VTE Risk Level:: Medical - moderate - high VTE Device Contraindication: Treatment Not Indicated VTE Drug Contraindication: N/A - Med Ordered
[2023-01-10] MEDS: Lactulose 20 GM/30 ML SOLUTION 30 GM PO (17:17)
[2023-01-10 17:22] LABS: Glucose, Whole Blood 113 mg/dL (60-115)
[2023-01-10 20:51] LABS: Glucose, Whole Blood 153 mg/dL (60-115)
[2023-01-11] MEDS: oxyCODONE HCl Immed Release 5 MG TABLET PO ×2 (05:19→11:24)
[2023-01-11 07:04] VITALS: BP 95/55; PULSE 82; RESP 20; TEMP 36.4; O2SAT 97
[2023-01-11 07:19] LABS: Glucose, Whole Blood 159 mg/dL (60-115)
[2023-01-11] MEDS: 0.9 % Sodium Chloride Flush 3 ML SYRINGE IVFLUSH (07:46)
[2023-01-11] MEDS: Insulin Lispro 100 UNIT/ML 3 ML VIAL SUBCUT (08:31)
[2023-01-11] MEDS: Spironolactone 25 MG TABLET 50 MG PO (08:32)
[2023-01-11] MEDS: rifAXIMin 550 MG TABLET PO (08:32)
[2023-01-11] MEDS: Lactulose 20 GM/30 ML SOLUTION PO (08:32)
[2023-01-11] MEDS: carvediloL 6.25 MG TABLET PO (08:33)
[2023-01-11] MEDS: Magnesium Oxide 400 MG TABLET PO (08:33)
[2023-01-11] MEDS: Aspirin 81 MG TAB.CHEW PO (08:33)
[2023-01-11] MEDS: Thiamine HCL 100 MG TABLET PO (08:33)
[2023-01-11] MEDS: Cyanocobalamin (Vitamin B-12) 1,000 MCG TABLET 1000 MCG PO (08:33)
[2023-01-11] MEDS: Multivitamin TABLET 1 TAB PO (08:33)
[2023-01-11 09:07] LABS: Hematocrit 24.1 % (42.0-52.0); Hemoglobin 7.7 g/dl (14.0-18.0); Mean Corpuscular Hemoglobin 28.8 pg (27.0-33.0); Mean Corpuscular Volume 90.3 fL (80.0-98.0); Mean Platelet Volume 10.1 fL (9.4-12.4); Platelet Count 146 X10*3/uL (160-400); Red Blood Count 2.67 X10*6/uL (4.60-5.80); Red Cell Distribution Width 18.8 % (11.0-16.0); White Blood Count 6.4 X10*3/uL (4.8-10.8)
[2023-01-11 09:17] LABS: Anion Gap 15 (12-20); Blood Urea Nitrogen 21 mg/dL (9-16); Calcium 8.5 mg/dL (8.4-10.2); Carbon Dioxide 23 mmol/L (22-29); Chloride 101 mmol/L (96-108); Creatinine Clr Calc Pharmacy 60.3; Estimated Glomerular Filt Rate 58; Glucose Random 145 mg/dL (60-115); Potassium 4.5 mmol/L (3.3-5.1); Sodium 134 mmol/L (135-145)
[2023-01-11 11:25] LABS: Glucose, Whole Blood 123 mg/dL (60-115)
[2023-01-11] MEDS: timoloL maleate 0.5 % Oph Sol 5 ML DRBTL 1 DROP EYE-BOTH (11:46)
[2023-01-11 12:06] VITALS: BP 106/54
--- NOTE | 2023-01-11 13:49 | PM.DS ---
DS: Providers Provider Date of Service: 01/11/23 Date of admission: 01/10/23 09:56 Date of discharge: 01/11/23 Primary care physician: Bryan Castrejon MD Consults: 01/09/23 23:20 Consult to Gastroenterology Routine Consulting Provider: Herb Chavez Reason for consultation: Ascietes despite lasix and spironolactone Has provider been notified: No Attending physician on discharge: Valdo Bautista Discharging clinician: Ana María Nava DS: Diagnosis Discharge Diagnosis (1) HCC (hepatocellular carcinoma): Status: Acute (2) Decompensated hepatic cirrhosis: Status: Acute (3) Gastric varix: Status: Acute DS: Summary Hospital Course Hospital Course: From H&P on day of admission This is a 77-year-old male past medical history of HTN, [id number] diabetes, CAD status post PCI, ischemic CVA, and SVT, and recently diagnosed BOBO and recently diagnosis liver cancer per family at [facility] comes into the hospital with complaints of increase anasarca throughout his body as well as left groin pain.? Patient states that he is confused by his medical state and is concerned because he has worsening abdominal distension, as well as pain in the groin area as well as lower extremity edema that has worsened over the past few days.? He recently had an increase in his Lasix but reports that has not been effective.? Patient also reports that he started chemotherapy and has had 3 sessions, choosing to be aggressive with treatment.? They also had a GI appointment outpatient but did not like the orthodontist assistant in her looking for new orthodontist assistant. He otherwise denies any chest pain, no abdominal pain, no nausea or vomiting, no diarrhea constipation, no urinary symptoms and no numbness weakness or tingling.? No confusion. On arrival to the ED patient hemodynamically stable Labs are significant for hemoglobin of 7.9 with a baseline of around 10, hematocrit 22.9, INR of 1.3, sodium of 135, BUN of 19, creatinine of 1.32 bilirubin of 4.7, AST of 105, ALT of 42, alk-phos of 294 which is seen to be slightly better than previously, UA negative Abdomen pelvic CT shows cirrhotic liver with varices and moderate volume ascites, liver has heterogeneous attenuation, suspicious for metastatic disease.? Bilateral inguinal hernia containing fat and ascitic fluid, anasarca with presence of diffuse edema of subcutaneous tissue, with edema present in the mesenteric and omental fat Patient will be admitted for further management and monitoring BOBO cirrhosis h/o esophageal varices s/p embolization at [facility] in october s/p paracentesis with removal of 2.4L of fluid 01/10- no evidence of SBP continue lactulose, xifaxan. no hepatic encephalopathy metastatic HCC undergoing palliative therapy at [facility]? 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 His primary oncologist Dr. Bustillos was updated by phone and is aware of MRI results. He indicated there was no need to make any changes in management at this time. anasarca r/t above HCC/cirrhosis recent admit to [facility] for the same, dose of lasix increased to 40 and aldactone 50. received IV lasix during hospitalization. recommended to continue baseline medications and follow with GI as outpatient groin pain no testicular mass or torsion. CT showing b/l inguinal hernias as well as ascites as cause of pain. Pain improved after paracentesis chronic normocytic anemia likely related to chronic dz. H/H stable when compared to labs from [facility] on 01/04. no evidence of active bleeding Time Spent with Patient Time attestation: Total time managing care of this patient today ____ minutes. Discharge coordination time: Greater than 30 minutes Quality: Safe Use of Opioids Does Pt have an Active Cancer Diagnosis on the Problem List?: Yes Opioid Measure Date for [facility] Report: 12/12/22 Opioid Measure Time for [facility] Report: 13:54 Quality: Stroke Does the patient have a stroke diagnosis?: No Physical Exam Vital Signs: Vital Signs: Last Vital Signs Temp 97.5 F 01/11/23 07:04 Pulse 82 01/11/23 07:04 Resp 20 01/11/23 07:04 BP 106/54 L 01/11/23 12:06 Pulse Ox 97 01/11/23 07:04 O2 Del Method Room Air 01/11/23 07:04 BMI result Body Mass Index 31.9 Const: General: cooperative, no acute distress, alert and awake Nutritional Appearance: overweight Orientation/consciousness: patient oriented x3 Resp: Effort & Inspection: normal respiratory effort, able to speak in complete sentences, no respiratory distress and no use of accessory muscles Cardio: Rate: regular rate Heart sounds: S1 normal heart sound present and S2 normal heart sound present GI: Inspection: No distended Palpation (GI): Soft to palpation and nontender Neuro: General: patient oriented x3, moves all extremities and CN's II-XI intact bilaterally Extrem: Other: b/l lower extremity pitting edema DS: Data Data Completed and Pending Completed studies during hospitalization [Text1]: Procedures Excision of Stomach, Pylorus, Via Natural or Artificial Opening Endoscopic, Diagnostic (10/27/22) Labs on day of discharge: Laboratory Results - last 24 hr 01/10/23 01/10/23 01/11/23 17:18 20:44 07:07 WBC RBC Hgb Hct MCV MCH MCHC RDW Plt Count MPV Absolute Nucleated RBC Nucleated RBC % (auto) Sodium Potassium Chloride Carbon Dioxide Anion Gap BUN Creatinine Estim Creat Clear Calc Estimated GFR POC Glucose 113 153 H 159 H Random Glucose Calcium 01/11/23 01/11/23 01/11/23 08:47 08:47 11:21 WBC 6.4 RBC 2.67 L Hgb 7.7 L Hct 24.1 L MCV 90.3 MCH 28.8 MCHC 32.0 RDW 18.8 H Plt Count 146 L MPV 10.1 Absolute Nucleated RBC 0.000 Nucleated RBC % (auto) 0.0 Sodium 134 L Potassium 4.5 Chloride 101 Carbon Dioxide 23 Anion Gap 15 BUN 21 H Creatinine 1.22 Estim Creat Clear Calc 60.3 Estimated GFR 58 POC Glucose 123 H Random Glucose 145 H Calcium 8.5 D Discharge Plan Discharge Anticipated Discharge Date/Time: 01/11/23 13:46 Patient Disposition: Home Health Service Discharge Diagnosis: lower extremity edema/ascites HCC Referrals: Bryan Castrejon MD [Primary Care Provider] - 1 Week Discharge Medications: Continued Xifaxan 550 mg Tablet 550 mg PO BID Qty: 1 0RF furosemide 40 mg tablet 40 mg PO DAILY carvedilol 6.25 mg tablet 6.25 mg PO BID cyanocobalamin (vitamin B-12) [Vitamin B-12] 1,000 mcg tablet 1,000 mcg PO DAILY thiamine HCl (vitamin B1) 100 mg tablet 100 mg PO DAILY omeprazole 10 mg capsule,delayed release(DR/EC) 10 mg PO DAILY PRN (Reason: Gastric Reflux) gabapentin 100 mg capsule 100 mg PO BEDTIME spironolactone 50 mg tablet 50 mg PO DAILY oxycodone 5 mg tablet 5 mg PO Q6H magnesium gluconate [Mag-G] 27 mg magnesium (500 mg) tablet 27 mg PO DAILY multivitamin with folic acid [Daily-Mel (with folic acid)] 400 mcg tablet 1 tab PO DAILY aspirin 81 mg Tablet,Chewable 81 mg PO DAILY lactulose 20 gram/30 mL solution 30 g PO BID PRN (Reason: Constipation) timolol maleate 0.5 % drops 1 drp ophthalmic (eye) BID latanoprost 0.005 % drops 1 drp ophthalmic (eye) BEDTIME Discharge Orders: Discharge Order (Routine); Ordered 01/11/23 Ordered By: Ana María Nava Activity on Discharge: As tolerated Stand Alone Forms: Patient Portal Discharge page Care Plan Goals: see below Health Concerns: Hepatocellular carcinoma Lower extremity edema/ascites Groin pain Plan of Treatment: Keep follow-up appointment as scheduled with [facility] for ongoing treatment hepatocellular carcinoma Take all medications as prescribed You will be discharged home with visiting nurses for close blood pressure monitoring Assessment: see discharge summary
--- NOTE | 2023-01-11 13:55 | P.F2F_ITS ---
Service Date Service Date: 01/11/23 Encounter Date of encounter: 01/11/23 Reasons for Services Signs and symptoms assessed: needs senior living for close blood pressure monitoring Reason for senior living: medication management Overseeing Care: Bryan Castrejon Homebound: Leaving the home is medically contraindicated at this time without the asist of a device and/or another person due th the listed conditions above and below. Reason homebound: weakness related to hospital stay Certification: Based on the above findings, I certify that this patient is confined to the home and needs intermittent senior living care, physical therapy and/or speech therapy, or continues to need occupational therapy. The patient is under my care, and I have initiated the establishment of the plan of care. The patient will be followed by a physician who will periodically review the plan of care. Time Spent With Patient Time: Total time managing care of this patient today ____ minutes.
--- NOTE | 2023-01-11 13:58 | MHC.CM.PN ---
DP: PT HAS BEEN MEDICALLY CLEARED FOR DC HOME WITH [facility]UMPTION OF [facility] AND NEW REFERRAL TO [facility] FOR POSSIBLE ASSIST WITHIN THE HOME. FAMILY WILL TRANSPORT HOME.
[2023-01-12 09:03] LABS: Carbohydrate Antigen 19-9 27 U/mL (<34)
== END 2023-01-11 15:13 | disposition home health service (06) | DRG 433 ==
LOC: HO.ED 21:22 → HO.EDOVER 23:42 → HO.S3 01-10 13:03
PROVIDERS: Internal Medicine Gastroenterology; Physician Assistant; Radiology Vascular & Interventional Radiology; Admitting Provider Internal Medicine; Emergency Provider Internal Medicine; PCP Family Medicine; Visit Provider Physician Assistant Medical
PROC: 0W9G3ZZ Drainage of Peritoneal Cavity, Percutaneous Approach (ICD-10-PCS; principal; 2023-01-10 10:00)
DX: K74.69 Other cirrhosis of liver (principal); C22.0 Liver cell carcinoma; R18.8 Other ascites; C79.9 Secondary malignant neoplasm of unspecified site; I25.10 Atherosclerotic heart disease of native coronary artery without angina pectoris; I25.2 Old myocardial infarction; K40.20 Bilateral inguinal hernia, without obstruction or gangrene, not specified as recurrent; I86.4 Gastric varices; I10 Essential (primary) hypertension; D63.0 Anemia in neoplastic disease; E11.9 Type 2 diabetes mellitus without complications; K75.81 Nonalcoholic steatohepatitis (NASH); Z91.148 Patient's other noncompliance with medication regimen for other reason; Z86.73 Personal history of transient ischemic attack (TIA), and cerebral infarction without residual deficits; Z79.82 Long term (current) use of aspirin; Z79.899 Other long term (current) drug therapy
CPT/HCPCS: 0353U; 36415; 49083; 74177; 74181; 76870; 80048; 80076; 81001; 82105; 82140; 82272; 82378; 82607; 82746; 82947; 83540; 83690; 83735; 83880; 85025; 85027; 85610; 85730; 86301; 89051; 93975; 99221; 99284; J1650; J1940; Q9967

== ENCOUNTER → 2023-01-09 23:26 | Outpatient (BNV) | payer MEDICARE, SELFPAY | PROVIDERS: Admitting Provider Internal Medicine; Emergency Provider Internal Medicine; PCP Family Medicine; Visit Provider Internal Medicine | DX: C22.0 Liver cell carcinoma (principal); K72.90 Hepatic failure, unspecified without coma; K74.60 Unspecified cirrhosis of liver; I86.4 Gastric varices | CPT/HCPCS: 99223; 99239; 99499; G0180 ==

== ENCOUNTER 2023-01-10 09:56 | Outpatient (BNV) | payer MEDICARE, SELFPAY | END 2023-01-10 10:30 | PROVIDERS: Admitting Provider Internal Medicine; Emergency Provider Internal Medicine; PCP Family Medicine; Visit Provider Radiology Vascular & Interventional Radiology | DX: R18.8 Other ascites (principal) | CPT/HCPCS: 49083 ==

== ENCOUNTER → 2023-01-10 09:56 | Outpatient (BNV) | payer MEDICARE, SELFPAY | PROVIDERS: Admitting Provider Internal Medicine; Emergency Provider Internal Medicine; PCP Family Medicine; Visit Provider Internal Medicine Gastroenterology | DX: I86.4 Gastric varices (principal); K72.90 Hepatic failure, unspecified without coma; K74.60 Unspecified cirrhosis of liver; C22.0 Liver cell carcinoma | CPT/HCPCS: 99232 ==

== ENCOUNTER 2023-02-22 12:58 | Outpatient (AMB) | payer MEDICARE, SELFPAY ==
--- NOTE | 2023-02-22 13:12 | MHC.OFFVIS ---
Intake Vital Signs 02/22/23 13:29 Height 5 ft 9 in Weight 194 lb 14.218 oz BMI 28.8 BP 111/55 L Blood Pressure Location Lt brachial Position Sitting Pulse 73 Intake Visit Reasons: follow up Intake Note: Patient presents to in office visit today in EGD follow up. CC: Patient reports occasional heartburn and chocking with pills. Denies other GI symptoms today. Allergies No Known Allergies [No Known Allergies*] Allergy (Verified 02/22/23 13:34) Medication List - Last Reconciled 02/22/23 by Cole Ramesh MD aspirin 81 mg PO DAILY carvedilol 6.25 mg PO BID cyanocobalamin (vitamin B-12) (Vitamin B-12) 1,000 mcg PO DAILY diphenhydramine HCl (Benadryl) 25 mg PO TID PRN furosemide 40 mg PO DAILY gabapentin 100 mg PO BEDTIME lactulose 30 grams PO BID PRN latanoprost 0.005% 1 drp ophthalmic (eye) BEDTIME magnesium gluconate (Mag-G) 27 mg PO DAILY multivitamin with folic acid 400 mcg (Daily-Mel (with folic acid)) 1 tab PO DAILY omeprazole 10 mg PO DAILY PRN rifaximin (Xifaxan) 550 mg PO BID spironolactone 50 mg PO DAILY thiamine HCl (vitamin B1) 100 mg PO DAILY timolol maleate 0.5% 1 drp ophthalmic (eye) BID HPI follow up HPI Details GI clinic visit for this 77-year-old O[place]i-speaking male with 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 Chemotherapy infusions are every 2 weeks and next appt is on 03/01/23 for his next chemotherapy infusion.? Anticipates he will finish chemo end of February FU with Dr Bustillos on 03/08/[address] scan on 02/19/23 Had a blood transfusion (1 unit) on February 04 for anemia Pt admitted on 01/09/23 with complaints of generalized anasarca and left groin pain related to tense ascites.? Symptoms have improved after therapeutic paracentesis LABS IN [facility] : Labs reviewed from [facility] IMAGING STUDIES: 01/09/[address] scan showed: Cirrhotic liver with varices and moderate volume ascites. *? Liver has heterogeneous attenuation. Multiple hypodense foci are present within the liver; these are suspicious for metastatic disease. Also, there appears to be soft tissue attenuation involving the common hepatic duct. Cholangiocarcinoma is possible. The hypodensity in the central liver involving region of right hepatic duct convergence with left hepatic duct could represent infiltrative tumor. There appears to be a chronically enlarged lymph node in the portacaval region. ENDOSCOPIC STUDIES: 10/27/22 EGD SHOWED: ESOPHAGUS: Grade 2 esophageal varices without stigmata of recent bleeding STOMACH: Multiple chronic appearing antral erosions - likely related to NSAID use. A large 3 cms varix with in the gastric fundus. DUODENUM: A few 4-5 mm erosions in the duodenal bulb No blood or active bleeding noted in the UGI tract during EGD. UGI bleeding likely from gastric and duodenal erosions versus gastric varix. Plan: Continue IV PPI and octreotide infusion. Transfer to tertiary care center for evaluation of gastric varix with doppler US and treatment with cyanoacrylate glue. TODAY'S VISIT: CC: Patient reports occasional heartburn and choking with pills. Denies other GI symptoms today. Pt is accompanied by his who provided most of the history Doing so so. Eating pretty good. Pt notes some dysphagia to pills and denies dysphagia with food intake denies confusion or difficulty with memory. Patient denies symptoms of heartburn, nausea, vomiting. Pt has lost weight. Abdominal distension has improved and has not needed any paracentesis recently Leg swelling has improved. Denies recent change in bowel habits, constipation, diarrhea, black stools or rectal bleeding. PAST GI HISTORY BY REVIEW OF MEDICAL RECORDS: Pt has had elevated LFTs for the past 2 years and his PCP prescribed Pioglitazone for DM and elevated LFTs. Per [t's family - pt hardly took the medication Pt had a colonoscopy 2-[address] Llanes (GI in [place]) and polyps were removed. Per family patient's PCP informed them that patient's liver function was altered but they are unaware if he has cirrhosis.? Patient is noncompliant with medications.? Family denied significant alcohol use or a history of hepatitis.? [place] [facility] [place] with hepatic encephalopathy Labs during pevious admission showed elevated creatinine of 2.2.? Hemoglobin was 10 (Baseline hemoglobin from 2019 was 14, 4/3/23 H & H was 11.5 & 35.9) Pt was started on IV PPI and Octreotide.? Patient admited to using excessive amount of Advil and denied alcohol abuse.? Aspirin and Tylenol was negative.? Hepatitis profile was negative for Acute Hep A, Hep B and C 10/2022 EGD SHOWED: ESOPHAGUS: Grade 2 esophageal varices without stigmata of recent bleeding STOMACH: Multiple chronic appearing antral erosions - likely related to NSAID use. A large 3 cms varix with in the gastric fundus. DUODENUM:? A few 4-5 mm erosions in the duodenal bulb No blood or active bleeding noted in the UGI tract during EGD. UGI bleeding likely from gastric and duodenal erosions versus gastric varix. Plan: Continue IV PPI and octreotide infusion. Transfer to tertiary care center for evaluation of gastric varix with doppler US and treatment with cyanoacrylate glue. [facility] Medical History (Updated 02/22/23 @ 13:55 by Cole Ramesh MD) HCC (hepatocellular carcinoma) BOBO (nonalcoholic steatohepatitis) Bilateral inguinal hernia Gastric varix Type 2 diabetes mellitus with unspecified complications NSVT (nonsustained ventricular tachycardia) Essential hypertension Ascending aorta dilatation Ischemic stroke Atherosclerotic cardiovascular disease Surgical History (Updated 02/22/23 @ 13:39 by Roldan Dobbs [facility]) H/O colonoscopy History of esophagogastroduodenoscopy (EGD) History of cardiac catheterization (~04/2015) Family History Father No problems noted. Mother No problems noted. Social History Household Members: Spouse Housing: House Do you presently have visiting nurse or other home services: Yes Unable to assess alcohol history related to: Unable to respond and Unknown Alcohol intake: never Patient Tobacco Use Status: Former Tobacco user Quit Date: 15 years ago Cigarettes Per Day: 10 Second Hand Smoke Exposure: No Advance Directives Date on File: 01/10/23 service: No Review of Systems Const All systems reviewed & are unremarkable except as noted in HPI and below Physical Exam Vital Signs: Last Vital Signs Pulse 73 02/22/23 13:29 BP 111/55 L 02/22/23 13:29 BMI result Body Mass Index 28.8 Const General: no acute distress and ill appearing (chronically ill appearing) Nutritional Appearance: overweight Orientation/consciousness: patient oriented x3 Limitations: no limitations HEENT Head: Yes normal to inspection Ears: hearing grossly normal bilaterally Eyes Sclerae: sclerae normal Pupils: Equal, round and reactive pupils present Neck Neck: Yes normal visual inspection Chest Chest palpation & inspection: normal inspection of the chest Resp Effort & Inspection: normal respiratory effort Auscultation: clear to auscultation bilaterally Cardio Palpation: normal PMI Rate: regular rate Rhythm: regular rhythm Heart sounds: S1 normal heart sound present, S2 normal heart sound present and no murmurs GI Inspection: Yes distended (due to ascites) Palpation (GI): Soft to palpation, nontender and No hepatosplenomegaly present Auscultation: normal bowel sounds Rectal Exam - Male: Yes deferred Skin General skin exam: no rashes or lesions noted and spider nevi Neuro General: patient oriented x3, gait normal and moves all extremities Cranial nerves: Yes Equal, round and reactive pupils present Extrem General: Yes pedal edema (1+ pedal edema bilaterally) and Yes other (No flap) Psych Appearance: grossly normal Mental Status: mental status grossly normal Assessment & Plan Assessment & Plan (1) Cirrhosis: Code(s): K74.60 - Unspecified cirrhosis of liver (2) Acute hepatic encephalopathy: Code(s): K76.82 - Hepatic encephalopathy (3) HCC (hepatocellular carcinoma): Code(s): C22.0 - Liver cell carcinoma Plan GI clinic visit for this 77-year-old [place]i-speaking male with 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 MELD score is 14 He elected to be treated by Dr Bustillos (Oncologist at [facility]) and reported that he started chemotherapy. Patient is receiving palliative chemotherapy with Nivolumab (biweekly started on 12/12/2022) Chemotherapy infusions are every 2 weeks and next appt is on 03/01/23 for his next chemotherapy infusion.? Anticipates he will finish chemo end of February. AFP improved [place] [id number], bilirubin improved to 3.9(13 at the time of diagnosis) PLAN: 1. Continue Rifaximin twice daily and lactulose once a day for hepatic encephalopathy (titrate to 2-3 soft BMs daily). 2. Continue Lasix and spironolactone for ascites - of note pt has not needed a therapeutic paracentesis since 01/10/23. Therapeutic paracenteses can be scheduled in case of refractory ascites. 3. Pt will continue FU with Dr Bustillos, oncologist at [facility] with labs every 2 weeks Records from [facility] were reviewed and scanned into patient's record. FU in 3 months Coding Level of Care Code Est Pt Level 4 (47870) Diagnoses Cirrhosis K74.60 Acute hepatic encephalopathy K76.82 HCC (hepatocellular carcinoma) C22.0 Time Spent (min) 26
[2023-02-22 13:29] VITALS: BP 111/55; PULSE 73; BMI 28.8
== END 2023-02-22 14:34 | disposition home or self-care (01) ==
PROVIDERS: PCP Family Medicine; Visit Provider Internal Medicine Gastroenterology
DX: K74.60 Unspecified cirrhosis of liver (principal); K76.82 Hepatic encephalopathy; C22.0 Liver cell carcinoma
CPT/HCPCS: 99214

== ENCOUNTER → 2023-02-22 12:58 | Outpatient (BNVA) | payer MEDICARE, SELFPAY | PROVIDERS: PCP Family Medicine; Visit Provider Internal Medicine Gastroenterology | DX: K74.60 Unspecified cirrhosis of liver (principal); K76.82 Hepatic encephalopathy; C22.0 Liver cell carcinoma | CPT/HCPCS: 99212 ==

== ENCOUNTER 2023-04-25 14:30 | Outpatient (AMB) | payer MEDICARE, SELFPAY ==
--- NOTE | 2023-04-25 14:43 | MHC.OFFVIS ---
Intake Vital Signs 04/25/23 14:45 Height 5 ft 9 in Weight 196 lb 3.382 oz BMI 29.0 BP 136/62 Blood Pressure Location Lt brachial Position Sitting Pulse 61 Intake Visit Reasons: 6 mth f/up Intake Note: 6 month follow up [employer] Required: No Accompanied by: Self / Same As Patient Allergies No Known Allergies [No Known Allergies*] Allergy (Verified 04/25/23 14:46) Medication List - Last Reconciled 04/25/23 by Rudy Blandon MD aspirin 81 mg PO DAILY carvedilol 6.25 mg PO BID cyanocobalamin (vitamin B-12) (Vitamin B-12) 1,000 mcg PO DAILY diphenhydramine HCl (Benadryl) 25 mg PO TID PRN furosemide 40 mg PO DAILY gabapentin 100 mg PO BEDTIME lactulose 30 grams PO BID PRN latanoprost 0.005% 1 drp ophthalmic (eye) BEDTIME magnesium gluconate (Mag-G) 27 mg PO DAILY multivitamin with folic acid 400 mcg (Daily-Mel (with folic acid)) 1 tab PO DAILY omeprazole 10 mg PO DAILY PRN rifaximin (Xifaxan) 550 mg PO BID spironolactone 50 mg PO DAILY thiamine HCl (vitamin B1) 100 mg PO DAILY timolol maleate 0.5% 1 drp ophthalmic (eye) BID HPI HPI Comments History of Present Illness Details Duane returns for follow-up regarding coronary artery disease. In 2014, he had non ST elevation myocardial infarction requiring cardiac catheterization and stenting of his 1st marginal. Overall, he is stable from cardiac. No complaints like angina or shortness of breath or any cardiac sounding symptoms. On review of GI notes, it seems that he has been diagnosed with liver cancer. Got chemotherapy for the same. [facility] Medical History (Updated 02/22/23 @ 13:55 by Cole Ramesh MD) HCC (hepatocellular carcinoma) BOBO (nonalcoholic steatohepatitis) Bilateral inguinal hernia Gastric varix Type 2 diabetes mellitus with unspecified complications NSVT (nonsustained ventricular tachycardia) Essential hypertension Ascending aorta dilatation Ischemic stroke Atherosclerotic cardiovascular disease Surgical History H/O colonoscopy History of esophagogastroduodenoscopy (EGD) History of cardiac catheterization (~04/2015) Family History Father No problems noted. Mother No problems noted. Social History Household Members: Spouse Housing: House Do you presently have visiting nurse or other home services: Yes Unable to assess alcohol history related to: Unable to respond and Unknown Alcohol intake: never Patient Tobacco Use Status: Former Tobacco user Quit Date: 15 years ago Cigarettes Per Day: 10 Second Hand Smoke Exposure: No Advance Directives Date on File: 01/10/23 service: No Review of Systems Const Denies weakness ENT Denies dizziness Card Denies chest pain, Denies chest pain with activity, Denies syncope, Denies rapid heart rate, Denies pedal edema, Denies edema, Denies leg edema, Denies lightheadedness, Denies palpitations, Denies dyspnea, Denies dyspnea on exertion and Denies orthopnea Resp Denies cough, Denies dyspnea and Denies dyspnea on exertion GI Denies hematochezia and Denies change in stool character Musc Denies abnormal gait, Denies muscle cramps, Denies muscle weakness, Denies numbness, Denies radiating pain into limb and Denies tingling Neuro Denies abnormal gait, Denies dizziness, Denies syncope, Denies numbness, Denies tingling and Denies weakness Endo Denies palpitations Physical Exam Vital Signs: Last Vital Signs Pulse 61 04/25/23 14:45 BP 136/62 04/25/23 14:45 BMI result Body Mass Index 29.0 Const General: comfortable and no acute distress Orientation/consciousness: patient oriented x3 HEENT Other: Unremarkable Head: Yes normal to inspection Neck Neck: Yes normal visual inspection Chest Chest palpation & inspection: normal inspection of the chest Resp Auscultation: clear to auscultation bilaterally Cardio Palpation: normal PMI Heart sounds: S1 normal heart sound present, S2 normal heart sound present, no gallops, no murmurs and no rubs GI Palpation (GI): Soft to palpation Back/Spine/Pelvis Other: unremarkable Skin General skin exam: no rashes or lesions noted Neuro General: patient oriented x3 Extrem General: Yes normal to inspection Psych Mental Status: mental status grossly normal Assessment & Plan Assessment & Plan (1) Atherosclerotic cardiovascular disease: Code(s): I25.10 - Atherosclerotic heart disease of [place] coronary artery without angina pectoris Plan: Status post 1st marginal stenting from 2015. Cardiac catheterization then also showed 75% distal LAD disease and severe RPDA disease, but small caliber vessel. Clinically, no angina. Continue aspirin beta-blockers. In the past, was on statins but after abnormal LFTs, it was apparently stopped. (2) Ischemic stroke: Code(s): I63.9 - Cerebral infarction, unspecified Plan: No clear deficits. Suspected intra cranial disease. CT of the neck 2018 with atheromatous plaque at the carotid bifurcations but no high-grade stenosis. Cardiac event monitoring in the past without any atrial fibrillation. (3) Ascending aorta dilatation: Code(s): I77.810 - Thoracic aortic ectasia Plan: In the most recent echocardiogram, ascending aortic size 4.4 cm. Prior to that, it was 4.3 cm. We will recheck in 6 months. (4) Essential hypertension: Code(s): I10 - Essential (primary) hypertension Plan: Stable. No changes. (5) NSVT (nonsustained ventricular tachycardia): Code(s): I47.2 - Ventricular tachycardia Plan: Continue beta-blockers. (6) HCC (hepatocellular carcinoma): Code(s): C22.0 - Liver cell carcinoma Plan: Because of this new diagnosis, cardiac care will likely be conservative. Plan Discussed with significant other who came for appointment. Orders: Orders CA echo transthoracic complete 6 Months I77.810 - Thoracic aortic ectasia Coding Level of Care Code Est Pt Level 4 (46367) Diagnoses Atherosclerotic cardiovascular disease I25.10 Ischemic stroke I63.9 Ascending aorta dilatation I77.810 Essential hypertension I10 NSVT (nonsustained ventricular tachycardia) I47.2 HCC (hepatocellular carcinoma) C22.0
[2023-04-25 14:45] VITALS: BP 136/62; PULSE 61; BMI 29.0
== END 2023-04-25 15:02 | disposition home or self-care (01) ==
PROVIDERS: Visit Provider Internal Medicine
DX: I25.10 Atherosclerotic heart disease of native coronary artery without angina pectoris (principal); I63.9 Cerebral infarction, unspecified; I77.810 Thoracic aortic ectasia; I10 Essential (primary) hypertension; I47.20 Ventricular tachycardia, unspecified; C22.0 Liver cell carcinoma
CPT/HCPCS: 99214

== ENCOUNTER → 2023-04-25 14:30 | Outpatient (BNVA) | payer MEDICARE, SELFPAY | PROVIDERS: Visit Provider Internal Medicine | DX: I25.10 Atherosclerotic heart disease of native coronary artery without angina pectoris (principal); I77.810 Thoracic aortic ectasia; I10 Essential (primary) hypertension; I47.20 Ventricular tachycardia, unspecified; I63.9 Cerebral infarction, unspecified; C22.0 Liver cell carcinoma | CPT/HCPCS: 99212 ==

== ENCOUNTER 2023-06-05 14:44 | Inpatient (IN) | payer MEDICARE, SELFPAY ==
--- NOTE | ~2023-06-05 | XR_ITS ---
EXAMINATION: XR CHEST CLINICAL INFORMATION: Shortness of breath. COMPARISON: 05/12/2015. TECHNIQUE: Frontal view of the chest was obtained. FINDINGS: The lung volumes are low. The cardiac mediastinal silhouette is stable given differences in levels of inspiration. There is no focal lung consolidation or pleural effusion. The bony structures and soft tissues are unremarkable. XR/XR chest 1V IMPRESSION: Low lung volumes limits evaluation. There is no evidence for active cardiopulmonary disease.
--- NOTE | ~2023-06-05 | CT_ITS ---
CT head/brain wo IV con CLINICAL INFORMATION: Reason for Exam AMS, hx liver CA COMPARISON: Prior head CT of October 2022 TECHNIQUE: Department standard protocol. This CT examination was performed using dose optimization techniques as appropriate, variously including the following: *Automated exposure control *Adjustment of mA and/or kV according to patient size (this includes techniques or standardized protocols for targeted exams where dose is matched to indication/reason for exam; i.e. extremities or head) *Use of iterative reconstruction technique DLP: 868 mGy-cm FINDINGS: CEREBRAL HEMISPHERES: There is no evidence of intra-axial or extra-axial mass, hemorrhage or acute infarct. BRAIN PARENCHYMA: Normal burger-white matter differentiation. SUBDURAL SPACE: No bleed. BASAL GANGLIA AND PINEAL GLAND: Unremarkable VENTRICLES: Symmetric and normal in size. CEREBELLUM AND BRAINSTEM: No space-occupying mass, hemorrhage or acute infarct. CEREBELLOPONTINE ANGLES: No lesion found. ORBITS: No intraorbital mass. VESSELS: Unremarkable SKULL BASE: Unremarkable INCLUDED SINUSES AT SKULL BASE: Clear SKULL AND SKIN: No fracture or bone lesion found. CT/CT head/brain wo IV con IMPRESSION: No CT evidence of intracranial space-occupying mass, bleed or infarct.
[2023-06-05 14:49] VITALS: BP 174/106; PULSE 83; O2SAT 98
--- NOTE | 2023-06-05 14:59 | ECG_ITS ---
Test Reason : WEAKNESS Blood Pressure : / mmHG Vent. Rate : 086 BPM Atrial Rate : 086 BPM P-R Int : 174 ms QRS Dur : 088 ms QT Int : 380 ms P-R-T Axes : 031 -23 042 degrees QTc Int : 454 ms Sinus rhythm with Premature ventricular complexes Otherwise normal ECG When compared with ECG of 26-OCT-2022 21:11, No significant changes seen Referred By: Cristy Bolaños Electronically Signed By:ANTOINETTE NELSON MD
[2023-06-05 15:16] VITALS: BP 165/67; PULSE 81; RESP 18; TEMP 36.7; O2SAT 96; BMI 28.8
--- NOTE | 2023-06-05 15:24 | ED.AMS ---
HPI - Altered Mental Status General Chief Complaint: Altered Mental Status Stated Complaint: AMS PER SPOUSE,HIGH BP 174/106,H/O CANCER PER EMS Time Seen by Provider: 06/05/23 14:52 Source: EMS and other (Patient's and daughter) Mode of arrival: EMS Limitations: altered mental status History of Present Illness HPI narrative: Patient comes to the emergency room complaining of altered mental status. Patient has history of cirrhosis, hepatocellular carcinoma and has had multiple episodes of altered mental status secondary to elevated ammonia. Patient states that he does not know why he is here, patient seems confused. Patient's family, and daughter are at bedside. The reports that 2 weeks ago patient had altered mental status/confusion for couple of weeks, the ammonia was checked ammonia was normal. Then his symptoms self-resolved. Yesterday, the patient was doing well, this morning, patient woke up confused, walking around the bedrooms searching for staff, trying to get into the shower with close, trying to get outside of the house. The family reports that this is very rapid onset for the patient. They also noted that although he can walk, seems to be weak, keeps dropping things out of his hands. Related Data Home Medications Medication Instructions Recorded Confirmed latanoprost 0.005 % eye drops 1 drp ophthalmic (eye) BEDTIME 01/29/22 04/25/23 timolol maleate 0.5 % eye drops 1 drp ophthalmic (eye) BID 01/29/22 04/25/23 aspirin 81 mg chewable tablet 81 mg PO DAILY 01/09/23 04/25/23 carvedilol 6.25 mg tablet 6.25 mg PO BID 01/09/23 04/25/23 cyanocobalamin (vitamin B-12) 1,000 mcg PO DAILY 01/09/23 04/25/23 1,000 mcg tablet (Vitamin B-12) furosemide 40 mg tablet 40 mg PO DAILY 01/09/23 04/25/23 gabapentin 100 mg capsule 100 mg PO BEDTIME 01/09/23 04/25/23 lactulose 20 gram/30 mL oral 30 g PO BID PRN Constipation 01/09/23 04/25/23 solution magnesium gluconate 27 mg 27 mg PO DAILY 01/09/23 04/25/23 magnesium (500 mg) tablet (Mag-G) multivitamin with folic acid 400 1 tab PO DAILY 01/09/23 04/25/23 mcg tablet (Daily-Mel (with folic acid)) omeprazole 10 mg capsule,delayed 10 mg PO DAILY PRN Gastric Reflux 01/09/23 04/25/23 release spironolactone 50 mg tablet 50 mg PO DAILY 01/09/23 04/25/23 thiamine HCl (vitamin B1) 100 mg 100 mg PO DAILY 01/09/23 04/25/23 tablet diphenhydramine HCl 25 mg capsule 25 mg PO TID PRN 02/22/23 04/25/23 (Benadryl) Previous Rx's Medication Instructions Recorded rifaximin 550 mg tablet (Xifaxan) 550 mg PO BID #1 tab 10/27/22 Allergies Allergy/AdvReac Type Severity Reaction Status Date / Time No Known Allergies Allergy Verified 04/25/23 14:46 [No Known Allergies*] Review of Systems Review of Systems: Yes Unobtainable due to mental condition PMFSH Past Medical History Medical History HCC (hepatocellular carcinoma) BOBO (nonalcoholic steatohepatitis) Bilateral inguinal hernia Gastric varix Type 2 diabetes mellitus with unspecified complications NSVT (nonsustained ventricular tachycardia) Essential hypertension Ascending aorta dilatation Ischemic stroke Atherosclerotic cardiovascular disease Surgical History H/O colonoscopy History of esophagogastroduodenoscopy (EGD) History of cardiac catheterization (~04/2015) Family History Family History Father No problems noted. Mother No problems noted. Social History Social History Household Members: Spouse Housing: House Do you presently have visiting nurse or other home services: Yes Unable to assess alcohol history related to: Unable to respond and Unknown Alcohol intake: never Comment: [facility] [place] Patient Tobacco Use Status: Former Tobacco user Quit Date: 15 years ago Cigarettes Per Day: 10 Second Hand Smoke Exposure: No Advance Directives: Yes Advance Directives on File: Yes Advance Directives Date on File: 01/10/23 service: No Physical Exam ED Vital Signs: Vital Signs - 24 hr 06/05/23 15:16 Temperature 98.0 F Pulse Rate 81 Respiratory Rate 18 Blood Pressure 165/67 H Pulse Oximetry 96 Oxygen Delivery Method Room Air BMI result Body Mass Index 28.8 Const Other: Appearance: Alert. No acute distress, seems confused but redirectable Eyes: Pupils equal, round and reactive to light. ENT: Pharynx normal. Neck: Normal inspection. Neck supple. No lymph nodes noted. No crepitus CVS: Normal heart rate and rhythm. Pulses normal. Normal S1 and S2 Respiratory: No respiratory distress. Breath sounds normal. No Wheezing. No rales Abdomen: Soft and nontender. No rigidity. No significant ascites abdominal distension Skin: Skin warm and dry. Normal skin color. Normal skin turgor. Extremities: No lower extremity edema. No Lacerations. No Rash Neuro: Moving all extremities. No slurred speech. CN 2 through 12 grossly intact Psych: calm, cooperative, confused Course Course Course Narrative: -all of patient's labs and imaging pending Medications Administered Discontinued Medications Generic Name Dose Route Start Last Admin Trade Name Freq PRN Reason Stop Dose Admin Lactulose 200 gm 06/05/23 17:20 06/05/23 18:33 Lactulose 320 Gm/480 Ml Solution DE 06/05/23 17:21 Not Given ONCE ONE Lactulose 20 gm 06/05/23 17:55 06/05/23 18:11 Lactulose 20 Gm/30 Ml Solution PO 06/05/23 17:56 20 gm ONCE ONE Administration Medical Decision Making Medical Decision Making [facility] Narrative: -my interpretation of labs: Hematology at baseline, no significant electrolyte abnormalities, LFTs chronically elevated, today ammonia is a bit more elevated than baseline, 78. No UTI, toxicology negative -my interpretation of head CT, no intracranial bleed, no obvious mass -patient receiving p.o. lactulose, patient still significantly confused. -I discussed the patient with Dr. Alaniz from the hospitalist team, patient being admitted Differential Diagnosis Differential Diagnoses: The differential diagnosis associated with the presentation includes (Intracranial mass, intracranial bleed, ammonia elevation causing encephalopathy, UTI) Admission/Observation Consideration of admission/observation: Escalation of care including admission/observation considered Consult Healthcare Provider Management of the patient was discussed with: Hospitalist Lab Data [facility] Lab Attestation statement: I reviewed the patient's lab results. 06/05/23 16:17 06/05/23 16:17 Labs: Lab Results 06/05/23 06/05/23 06/05/23 Range/Units 16:16 16:17 16:29 WBC 7.1 (4.8-10.8) X10*3/uL RBC 3.69 L D (4.60-5.80) X10*6/uL Hgb 10.9 L D (14.0-18.0) g/dl Hct 32.8 L D (42.0-52.0) % MCV 88.9 (80.0-98.0) fL MCH 29.5 (27.0-33.0) pg MCHC 33.2 (31.0-36.0) g/dl RDW 20.1 H (11.0-16.0) % Plt Count 126 L (160-400) X10*3/uL MPV 10.8 (9.4-12.4) fL Immature Gran % (Auto) 0.3 (0.0-0.4) % Neut % (Auto) 62.5 (45-73) % Lymph % (Auto) 24.7 (20-40) % [place] % (Auto) 9.4 (2-11) % Eos % (Auto) 2.4 (0-4) % Baso % (Auto) 0.7 (0-2) % Lymph # (Auto) 1.8 (1.2-4.9) X10*3/uL [place] # (Auto) 0.7 (0.1-1.2) X10*3/uL Eos # (Auto) 0.2 (0.0-0.4) X10*3/uL Baso # (Auto) 0.1 (0.0-0.2) X10*3/uL Abs Immat Gran (auto) 0.02 (0.00-0.03) X10*3/uL Absolute Neuts (auto) 4.4 (2.0-8.3) x10*3/uL Absolute Nucleated RBC 0.000 (0.0-0.012) X10*3/uL Nucleated RBC % (auto) 0.0 (0.0-0.2) /100WBC PT 14.1 H (11.1-13.3) SEC INR 1.2 H (0.9-1.1) Sodium 139 (135-145) mmol/L Potassium 4.8 (3.3-5.1) mmol/L Chloride 111 H (96-108) mmol/L Carbon Dioxide 22 (22-29) mmol/L Anion Gap 11 L (12-20) BUN 19 H (9-16) mg/dL Creatinine 1.23 (0.5-1.4) mg/dL Estim Creat Clear Calc 57.1 Estimated GFR 57 Random Glucose 100 (60-115) mg/dL Lactic Acid 1.5 (0.5-2.0) mmol/L Calcium 10.0 D (8.4-10.2) mg/dL Magnesium 1.8 (1.6-2.6) mg/dL Total Bilirubin 2.4 H (0.0-1.0) mg/dL Direct Bilirubin 1.3 H (0.0-0.5) mg/dL AST 92 H (5-37) U/L ALT 46 H (0-40) U/L Alkaline Phosphatase 201 H (39-117) U/L Ammonia 78 H (13-55) umol/L Troponin I High Sens 9.9 (<3.5-35.0) ng/L Total Protein 8.4 H (6.5-8.0) g/dL Albumin 3.0 L (3.5-5.0) g/dL Lipase 47 (8-78) U/L TSH 2.43 (0.32-4.0) uIU/mL Urine Color Yellow Urine Appearance Clear Urine pH 8.5 (5.0-9.0) Ur Specific [place] 1.010 (1.005-1.025) Urine Protein Negative (Neg-Trace) mg/dL Urine Glucose (UA) Negative (Negative) mg/dL Urine Ketones Negative (Negative) mg/dL Urine Blood Negative (Negative) Urine Nitrite Negative (Negative) Ur Leukocyte Esterase Negative (Negative) Urine Opiates Screen Not Detected (Not Detect) Urine Fentanyl Screen Not Detected (Not Detect) Ur Barbiturates Screen Not Detected (Not Detect) Ur Phencyclidine Scrn Not Detected (Not Detect) Ur Amphetamines Screen Not Detected (Not Detect) U Benzodiazepines Scrn Not Detected (Not Detect) Urine Cocaine Screen Not Detected (Not Detect) U Marijuana (THC) Screen Not Detected (Not Detect) Ethyl Alcohol < 10 mg/dL COVID-19 (CORY) Negative (Negative) COVID-19 Clin Com See Note Influenza Type A (DIONISIO) Negative (Negative) Influenza Type B (DIONISIO) Negative (Negative) Influenza A & B Note See Note Independent Interpretation I performed an independent interpretation of an: CT Scan Interpretation: FINDINGS: CEREBRAL HEMISPHERES: There is no evidence of intra-axial or extra-axial mass, hemorrhage or acute infarct. BRAIN PARENCHYMA: Normal burger-white matter differentiation. SUBDURAL SPACE: No bleed. BASAL GANGLIA AND PINEAL GLAND: Unremarkable VENTRICLES: Symmetric and normal in size. CEREBELLUM AND BRAINSTEM: No space-occupying mass, hemorrhage or acute infarct. CEREBELLOPONTINE ANGLES: No lesion found. ORBITS: No intraorbital mass. VESSELS: Unremarkable SKULL BASE: Unremarkable INCLUDED SINUSES AT SKULL BASE: Clear SKULL AND SKIN: No fracture or bone lesion found. CT/CT head/brain wo IV con IMPRESSION: No CT evidence of intracranial space-occupying mass, bleed or infarct. Radiology Impression Discussion of test interpretation with radiology: I have reviewed the radiologist's reading. Independent Historian Clinical information obtained from an independent historian. History obtained from or confirmed by: Spouse Critical Care Time Critical Care Time Critical Care Time: Yes Total Critical Care Time: 60 Attestation: I have personally provided critical care time. Time includes review of lab data, radiology results, discussion with consultants, and monitoring for potential decompensation. Intervention performed as documented. Discharge Plan Discharge Clinical Impression: Encephalopathy Patient Disposition: Admitted As Inpatient Prescriptions: No Action Xifaxan 550 mg Tablet 550 mg PO BID Qty: 1 0RF furosemide 40 mg tablet 40 mg PO DAILY carvedilol 6.25 mg tablet 6.25 mg PO BID cyanocobalamin (vitamin B-12) [Vitamin B-12] 1,000 mcg tablet 1,000 mcg PO DAILY thiamine HCl (vitamin B1) 100 mg tablet 100 mg PO DAILY omeprazole 10 mg capsule,delayed release(DR/EC) 10 mg PO DAILY PRN (Reason: Gastric Reflux) gabapentin 100 mg capsule 100 mg PO BEDTIME spironolactone 50 mg tablet 50 mg PO DAILY magnesium gluconate [Mag-G] 27 mg magnesium (500 mg) tablet 27 mg PO DAILY multivitamin with folic acid [Daily-Mel (with folic acid)] 400 mcg tablet 1 tab PO DAILY aspirin 81 mg Tablet,Chewable 81 mg PO DAILY lactulose 20 gram/30 mL solution 30 g PO BID PRN (Reason: Constipation) timolol maleate 0.5 % drops 1 drp ophthalmic (eye) BID latanoprost 0.005 % drops 1 drp ophthalmic (eye) BEDTIME diphenhydramine HCl [Benadryl] 25 mg capsule 25 mg PO TID PRN
[2023-06-05 16:22] LABS: MANUAL DIFF FLAG NO
[2023-06-05 16:26] LABS: Basophils Absolute Auto 0.1 X10*3/uL (0.0-0.2); Basophils Percent Auto 0.7 % (0-2); Eosinophils Absolute Auto 0.2 X10*3/uL (0.0-0.4); Eosinophils Percent Auto 2.4 % (0-4); Hematocrit 32.8 % (42.0-52.0); Hemoglobin 10.9 g/dl (14.0-18.0); Imm Gran Abs Auto 0.02 X10*3/uL (0.00-0.03); Imm Gran Pct Auto 0.3 % (0.0-0.4); Lymphocytes Absolute Auto 1.8 X10*3/uL (1.2-4.9); Lymphocytes Percent Auto 24.7 % (20-40); Mean Corpuscular HGB Conc 33.2 g/dl (31.0-36.0); Mean Corpuscular Hemoglobin 29.5 pg (27.0-33.0); Mean Corpuscular Volume 88.9 fL (80.0-98.0); Mean Platelet Volume 10.8 fL (9.4-12.4); Monocytes Absolute Auto 0.7 X10*3/uL (0.1-1.2); Monocytes Percent Auto 9.4 % (2-11); Neutrophils Absolute Auto 4.4 x10*3/uL (2.0-8.3); Neutrophils Percent Auto 62.5 % (45-73); Platelet Count 126 X10*3/uL (160-400); Red Blood Count 3.69 X10*6/uL (4.60-5.80); Red Cell Distribution Width 20.1 % (11.0-16.0); White Blood Count 7.1 X10*3/uL (4.8-10.8)
[2023-06-05 16:33] LABS: INTERNATIONAL NORM RATIO 1.2 (0.9-1.1); Prothrombin Time 14.1 SEC (11.1-13.3)
[2023-06-05 16:38] LABS: Ammonia 78 umol/L (13-55)
[2023-06-05 16:41] LABS: Lactic Acid 1.5 mmol/L (0.5-2.0)
[2023-06-05 16:42] LABS: Alanine Aminotransferase 46 U/L (0-40); Alkaline Phosphatase 201 U/L (39-117); Anion Gap 11 (12-20); Aspartate Amino Transferase 92 U/L (5-37); Bilirubin Direct 1.3 mg/dL (0.0-0.5); Bilirubin Total 2.4 mg/dL (0.0-1.0); Blood Urea Nitrogen 19 mg/dL (9-16); Carbon Dioxide 22 mmol/L (22-29); Chloride 111 mmol/L (96-108); Creatinine Clr Calc Pharmacy 57.1; Estimated Glomerular Filt Rate 57; Glucose Random 100 mg/dL (60-115); Lipase 47 U/L (8-78); Magnesium 1.8 mg/dL (1.6-2.6); Potassium 4.8 mmol/L (3.3-5.1); Sodium 139 mmol/L (135-145); Total Protein 8.4 g/dL (6.5-8.0)
[2023-06-05 16:43] LABS: COVID-19 Test Negative (Negative); IDNOW Serial# 6674DD1D
[2023-06-05 16:44] LABS: IDNOW Serial# 9DB6401D; Influenza A Negative (Negative); Influenza B2 Negative (Negative)
[2023-06-05 16:50] LABS: Appearance Urine Clear; Color Urine Yellow; Glucose Urine UA Negative (Negative); Leukocyte Esterase Urine Negative (Negative); Nitrite Urine Negative (Negative); PH 8.5 (5.0-9.0); Urine Blood Negative (Negative); Urine Ketones Negative (Negative); Urine Protein Negative (Neg-Trace)
[2023-06-05 16:52] LABS: Troponin-I High Sensitivity 9.9 ng/L (<3.5-35.0)
[2023-06-05 16:54] LABS: Ethanol < 10 mg/dL
[2023-06-05 17:01] LABS: Amphetamine Screen Urine Not Detected (Not Detect); Barbiturates, Urine Not Detected (Not Detect); Benzodiazepines Screen Urine Not Detected (Not Detect); Cannabinoid Screen Urine Not Detected (Not Detect); Cocaine Screen Urine Not Detected (Not Detect); Fentanyl, urine Not Detected (Not Detect); Opiate Screen Urine Not Detected (Not Detect); Phencyclidine Screen Urine Not Detected (Not Detect)
[2023-06-05 17:04] LABS: TSH reflex Free T4 2.43 uIU/mL (0.32-4.0)
[2023-06-05] MEDS: Lactulose 20 GM/30 ML SOLUTION PO (18:11)
--- NOTE | 2023-06-05 19:38 | PHA.MEDREC ---
Pharmacy Consult ? Medication Reconciliation Pharmacy has completed the medication reconciliation. Patient's confirmed medications. Reports patient is suppose to be taking lactulse 30 ml tid however patient only takes it once a day. Laura Valdez, PharmD
--- NOTE | 2023-06-05 19:49 | PM.IMHP ---
History of Present Illness Date of Service: 06/05/23 Chief Complaint: Altered mentation This is a 77-year-old male with 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 Unable to obtain history from the patient, history obtained from family at bedside. Patient is awake and alert but does not know why he is in the hospital. The states that patient has been having on and off confusion for the last 10 days. His ammonia level was checked about 5 days prior to presentation and was normal. The admits that the patient has not been compliant with his home p.o. lactulose. The confusion was noted to be worse on the day of presentation. The patient did not make sense when he was talking and was trying to search the house for his staff. Patient is on nivolumab every 2 weeks for cholangiocarcinoma and follows up with Oncology outpatient. He recently got an MRI of the abdomen 2 days ago at [facility]. No fever, chills, black stools, blood in stools noted. No abdominal pain as per the . Unable to obtain extensive review of systems Review of Systems Review of Systems: Yes Unobtainable due to mental status [facility] Medical History Cholangiocarcinoma BOBO (nonalcoholic steatohepatitis) Bilateral inguinal hernia Gastric varix Type 2 diabetes mellitus with unspecified complications NSVT (nonsustained ventricular tachycardia) Essential hypertension Ascending aorta dilatation Ischemic stroke Atherosclerotic cardiovascular disease Family History Father No problems noted. Mother No problems noted. Surgical History H/O colonoscopy History of esophagogastroduodenoscopy (EGD) History of cardiac catheterization (~04/2015) Social History Household Members: Spouse Housing: House Do you presently have visiting nurse or other home services: Yes Unable to assess alcohol history related to: Unable to respond and Unknown Alcohol intake: never Comment: [facility] [place] Patient Tobacco Use Status: Former Tobacco user Quit Date: 15 years ago Cigarettes Per Day: 10 Second Hand Smoke Exposure: No Advance Directives: Yes Advance Directives on File: Yes Advance Directives Date on File: 01/10/23 service: No Meds Allergies Allergy/AdvReac Type Severity Reaction Status Date / Time No Known Allergies Allergy Verified 04/25/23 14:46 [No Known Allergies*] Active Medications: Current Medications Acetaminophen (Acetaminophen 325 Mg Tablet) 650 mg PO Q6H PRN PRN Reason: Pain, Mild (Pain Scale 1-3) Enoxaparin Sodium (Enoxaparin Sodium 40 Mg/0.4 Ml Syringe) 40 mg SUBCUT Q24H [facility] Lactulose (Lactulose 20 Gm/30 Ml Solution) 20 gm PO ONCE ONE Stop: 06/05/23 23:49 Melatonin (Melatonin 3 Mg Tablet) 6 mg PO BEDTIME PRN PRN Reason: Insomnia Ondansetron HCl (Ondansetron Hcl 4 Mg/2 Ml Vial) 4 mg IVPUSH Q8H PRN PRN Reason: Nausea and Vomiting Sodium Chloride (0.9 % Sodium Chloride Flush 3 Ml Syringe) [facility] Home Medications Medication Instructions Recorded Confirmed Last Taken Type latanoprost 0.005 % eye drops 1 drp ophthalmic (eye) BEDTIME 01/29/22 06/05/23 01/08/23 History timolol maleate 0.5 % eye drops 1 drp ophthalmic (eye) BID 01/29/22 06/05/23 01/08/23 History aspirin 81 mg chewable tablet 81 mg PO DAILY 01/09/23 06/05/23 01/08/23 History carvedilol 6.25 mg tablet 6.25 mg PO BID 01/09/23 06/05/23 01/08/23 History cyanocobalamin (vitamin B-12) 1,000 mcg PO DAILY 01/09/23 06/05/23 06/05/23 History 1,000 mcg tablet (Vitamin B-12) furosemide 40 mg tablet 40 mg PO DAILY 01/09/23 06/05/23 01/08/23 History gabapentin 100 mg capsule 100 mg PO BEDTIME PRN Pain 01/09/23 06/05/23 01/08/23 History lactulose 20 gram/30 mL oral 30 ml PO DAILY Constipation 01/09/23 06/05/23 Unknown History solution magnesium gluconate 27 mg 27 mg PO DAILY 07/06/05/23 01/08/23 History magnesium (500 mg) tablet (Mag-G) multivitamin with folic acid 400 1 tab PO DAILY 01/09/23 06/05/23 01/08/23 History mcg tablet (Daily-Mel (with folic acid)) omeprazole 10 mg capsule,delayed 10 mg PO DAILY PRN Gastric Reflux 01/09/23 06/05/23 01/08/23 History release spironolactone 50 mg tablet 50 mg PO DAILY 01/09/23 06/05/23 01/08/23 History thiamine HCl (vitamin B1) 100 mg 100 mg PO DAILY 01/09/23 06/05/23 01/08/23 History tablet diphenhydramine HCl 25 mg capsule 25 mg PO TID PRN Itching 02/22/23 06/05/23 Unknown History (Benadryl) acetaminophen 500 mg tablet 500 mg PO Q8H PRN mild pain 06/05/23 06/05/23 Unknown History betamethasone dipropionate 0.05 % 1 appl topical BID PRN Itching 06/05/23 06/05/23 Unknown History topical ointment hydroxyzine HCl 25 mg tablet 12.5 mg PO DAILY PRN itch 06/05/23 06/05/23 Unknown History Physical Exam Vital Signs and Narrative: Vital Signs: Last Vital Signs Temp 98.0 F 06/05/23 15:16 Pulse 81 06/05/23 15:16 Resp 18 06/05/23 15:16 BP 165/67 H 06/05/23 15:16 Pulse Ox 96 06/05/23 15:16 O2 Del Method Room Air 06/05/23 15:16 BMI result Body Mass Index 28.8 Elderly male lying in bed in no distress Neck supple, no JVD Regular rate and rhythm, S1-S2 heard Regular breath sounds bilaterally, no wheezing or crackles appreciated Abdomen soft nontender, no guarding, no rigidity Patient is awake, alert and oriented to self, disoriented to place, time and person ; hand tremors present Psych: Normal mood No pedal edema Results Labs 06/05/23 16:17 06/05/23 16:17 Labs: Laboratory Results - last 24 hr 06/05/23 06/05/23 06/05/23 16:16 16:17 16:29 MCV 88.9 MCH 29.5 MCHC 33.2 RDW 20.1 H Plt Count 126 L MPV 10.8 Immature Gran % (Auto) 0.3 Neut % (Auto) 62.5 Lymph % (Auto) 24.7 [place] % (Auto) 9.4 Eos % (Auto) 2.4 Baso % (Auto) 0.7 Lymph # (Auto) 1.8 [place] # (Auto) 0.7 Eos # (Auto) 0.2 Baso # (Auto) 0.1 Abs Immat Gran (auto) 0.02 Absolute Neuts (auto) 4.4 Absolute Nucleated RBC 0.000 Nucleated RBC % (auto) 0.0 PT 14.1 H INR 1.2 H Anion Gap 11 L Estim Creat Clear Calc 57.1 Estimated GFR 57 Random Glucose 100 Lactic Acid 1.5 Calcium 10.0 D Magnesium 1.8 Total Bilirubin 2.4 H Direct Bilirubin 1.3 H AST 92 H ALT 46 H Alkaline Phosphatase 201 H Ammonia 78 H Total Protein 8.4 H Albumin 3.0 L Lipase 47 TSH 2.43 Urine Color Yellow Urine Appearance Clear Urine pH 8.5 Ur Specific [place] 1.010 Urine Protein Negative Urine Glucose (UA) Negative Urine Ketones Negative Urine Blood Negative Urine Nitrite Negative Ur Leukocyte Esterase Negative Urine Opiates Screen Not Detected Urine Fentanyl Screen Not Detected Ur Barbiturates Screen Not Detected Ur Phencyclidine Scrn Not Detected Ur Amphetamines Screen Not Detected U Benzodiazepines Scrn Not Detected Urine Cocaine Screen Not Detected U Marijuana (THC) Screen Not Detected Ethyl Alcohol < 10 COVID-19 (CORY) Negative COVID-19 Clin Com See Note Influenza Type A (DIONISIO) Negative Influenza Type B (DIONISIO) Negative Influenza A & B Note See Note Imaging Radiologist's Impressions: Impressions Chest X-Ray 06/05/23 15:18 IMPRESSION: Low lung volumes limits evaluation. There is no evidence for active cardiopulmonary disease. Head CT 06/05/23 17:31 IMPRESSION: No CT evidence of intracranial space-occupying mass, bleed or infarct. Assessment and Plan (1) Hepatic encephalopathy: Status: Acute Plan This is a 77-year-old male with 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 #. Hepatic encephalopathy grade I/II due to medication noncompliance: Ammonia found to be elevated in the ER. Will initiate scheduled lactulose. Educated the about the importance of being compliance with p.o. lactulose of at home. No GI bleed, infection, hypokalemia, renal failure, hypoxia, hyperglycemia as a precipitating cause. Repeat ammonia in a.m. Continue rifaximin #. Cholangiocarcinoma with hepatic metastasis: On nivolumab every 2 weeks as an outpatient. Follows up with Oncology at [facility] #. Liver cirrhosis: Continue diuretics, lactulose and rifaximin #. Coronary artery disease/CVA: On antiplatelet agent. Not on statin DVT prophylaxis: Lovenox Full code Quality Stroke Does the patient have a stroke diagnosis?: No VTE Prior VTE?: No VTE Risk Level:: Medical - moderate - high VTE Device Contraindication: Treatment Not Indicated VTE Drug Contraindication: N/A - Med Ordered
[2023-06-05 20:31] VITALS: BP 121/72; PULSE 93; RESP 20; O2SAT 96
[2023-06-05] MEDS: carvediloL 6.25 MG TABLET PO (20:53)
[2023-06-05] MEDS: Enoxaparin Sodium 40 MG/0.4 ML SYRINGE SUBCUT (20:53)
[2023-06-05 22:21] VITALS: BP 165/87; PULSE 85; RESP 18; TEMP 37.4; O2SAT 98
[2023-06-05] MEDS: rifAXIMin 550 MG TABLET PO (22:44)
[2023-06-05] MEDS: Lactulose 20 GM/30 ML SOLUTION 30 GM PO (22:45)
[2023-06-05] MEDS: 0.9 % Sodium Chloride Flush 3 ML SYRINGE IVFLUSH (22:51)
[2023-06-06] VITALS (8 sets, daily range): BP systolic 101–149; BP diastolic 61–89; PULSE 68–95; RESP 18–20; TEMP 36.6–37.4; O2SAT 96–99
[2023-06-06] MEDS: diphenhydrAMINE HCL 25 MG CAPSULE PO (01:32)
[2023-06-06] MEDS: hydrOXYzine HCL 25 MG TABLET 12.5 MG PO (01:33)
[2023-06-06 07:58] LABS: MANUAL DIFF FLAG NO
[2023-06-06 08:13] LABS: Basophils Absolute Auto 0.1 X10*3/uL (0.0-0.2); Basophils Percent Auto 0.7 % (0-2); Eosinophils Absolute Auto 0.2 X10*3/uL (0.0-0.4); Eosinophils Percent Auto 2.2 % (0-4); Hematocrit 30.7 % (42.0-52.0); Hemoglobin 10.2 g/dl (14.0-18.0); Imm Gran Abs Auto 0.01 X10*3/uL (0.00-0.03); Imm Gran Pct Auto 0.1 % (0.0-0.4); Lymphocytes Absolute Auto 2.2 X10*3/uL (1.2-4.9); Lymphocytes Percent Auto 30.6 % (20-40); Mean Corpuscular HGB Conc 33.2 g/dl (31.0-36.0); Mean Corpuscular Hemoglobin 29.3 pg (27.0-33.0); Mean Corpuscular Volume 88.2 fL (80.0-98.0); Mean Platelet Volume 11.3 fL (9.4-12.4); Monocytes Absolute Auto 0.8 X10*3/uL (0.1-1.2); Neutrophils Percent Auto 55.4 % (45-73); Platelet Count 119 X10*3/uL (160-400); Red Blood Count 3.48 X10*6/uL (4.60-5.80); White Blood Count 7.2 X10*3/uL (4.8-10.8)
[2023-06-06 08:20] LABS: Anion Gap 13 (12-20); Blood Urea Nitrogen 20 mg/dL (9-16); Calcium 9.8 mg/dL (8.4-10.2); Carbon Dioxide 19 mmol/L (22-29); Chloride 110 mmol/L (96-108); Estimated Glomerular Filt Rate 54; Glucose Random 87 mg/dL (60-115); Potassium 4.7 mmol/L (3.3-5.1); Sodium 137 mmol/L (135-145)
[2023-06-06] MEDS: Lactulose 20 GM/30 ML SOLUTION 30 GM PO ×3 (08:21→20:37)
[2023-06-06] MEDS: Multivitamin TABLET 1 TAB PO (08:23)
[2023-06-06] MEDS: Magnesium Oxide 400 MG TABLET PO (08:23)
[2023-06-06] MEDS: carvediloL 6.25 MG TABLET PO ×2 (08:23→20:36)
[2023-06-06] MEDS: Aspirin 81 MG TAB.CHEW PO (08:23)
[2023-06-06] MEDS: rifAXIMin 550 MG TABLET PO ×2 (08:23→20:36)
[2023-06-06] MEDS: Spironolactone 25 MG TABLET 50 MG PO (08:23)
[2023-06-06] MEDS: Furosemide 40 MG TABLET PO (08:23)
[2023-06-06] MEDS: 0.9 % Sodium Chloride Flush 3 ML SYRINGE IVFLUSH ×2 (08:24→15:58)
[2023-06-06] MEDS: Cyanocobalamin (Vitamin B-12) 1,000 MCG TABLET 1000 MCG PO (08:24)
[2023-06-06] MEDS: Thiamine HCL 100 MG TABLET PO (08:24)
--- NOTE | 2023-06-06 09:08 | MHC.CM.PN ---
Addendum entered by Nayana Grover 06/06/23 14:29: Pt changed from obs to inpatient, IMM given 06/06. Original Note: REED 06/06. Pt lives at home with his , is self-care. HCP on file and verified. Pt had [facility] at home but is not currently active. Pts or daughter to transport him home. PCP: Dr. Bryan Castrejon
[2023-06-06 10:31] LABS: Ammonia 75 umol/L (13-55)
[2023-06-06 11:56] LABS: Alanine Aminotransferase 43 U/L (0-40); Albumin Level 2.9 g/dL (3.5-5.0); Alkaline Phosphatase 168 U/L (39-117); Aspartate Amino Transferase 92 U/L (5-37); Bilirubin Direct 1.7 mg/dL (0.0-0.5); Bilirubin Total 3.3 mg/dL (0.0-1.0); Total Protein 7.9 g/dL (6.5-8.0)
--- NOTE | 2023-06-06 15:36 | HO.PM.IMPN ---
Subjective Subjective Date of Service: 06/06/23 Interval History: seen and examined this morning follow up for encephalopathy patient mental status improving, less confused has been having some itching at home Review of Systems Review of Systems: Yes all other systems are reviewed and are negative Constitutional Constitutional: Reports chills and Reports fever(s) Cardiovascular Cardiovascular: Denies chest pain, Denies palpitations and Denies dyspnea Respiratory Respiratory: Denies cough and Denies dyspnea Endocrine Endocrine: Denies palpitations Physical Exam Vital Signs: Vital Signs: Last Vital Signs Temp 98.6 F 06/06/23 11:52 Pulse 81 06/06/23 11:52 Resp 18 06/06/23 11:52 BP 112/61 06/06/23 11:52 Pulse Ox 98 06/06/23 11:52 O2 Del Method Room Air 06/06/23 11:52 BMI result Body Mass Index 28.8 Const: General: comfortable, no acute distress, alert and awake Nutritional Appearance: average body habitus Orientation/consciousness: oriented to person and oriented to place Resp: Effort & Inspection: normal respiratory effort, able to speak in complete sentences, no respiratory distress and no use of accessory muscles Cardio: Rate: regular rate GI: Inspection: No distended Palpation (GI): Soft to palpation and nontender Skin: Other: mild redness to right lower leg with some excoriations Neuro: General: oriented to person, oriented to place and moves all extremities Extrem: General: Yes no pedal edema Objective Data Active Medications Acetaminophen (Acetaminophen 325 Mg Tablet) 650 mg PO Q6H PRN PRN Reason: Pain, Mild (Pain Scale 1-3) Aspirin (Aspirin 81 Mg Tab.Chew) 81 mg PO DAILY [facility] Last Admin: 06/06/23 08:23 Dose: 81 mg Documented By: PRINCE Carvedilol (Carvedilol 6.25 Mg Tablet) 6.25 mg PO BID [facility]; Protocol Last Admin: 06/06/23 08:23 Dose: 6.25 mg Documented By: PRINCE Cyanocobalamin (Cyanocobalamin (Vitamin B-12) 1,000 Mcg Tablet) 1,000 mcg PO DAILY [facility] Last Admin: 06/06/23 08:24 Dose: 1,000 mcg Documented By: PRINCE Diphenhydramine HCl (Diphenhydramine Hcl 25 Mg Capsule) 25 mg PO TID PRN PRN Reason: Itching Last Admin: 06/06/23 01:32 Dose: 25 mg Documented By: JERICA Enoxaparin Sodium (Enoxaparin Sodium 40 Mg/0.4 Ml Syringe) 40 mg SUBCUT Q24H [facility] Last Admin: 06/05/23 20:53 Dose: 40 mg Documented By: KAITLYN Furosemide (Furosemide 40 Mg Tablet) 40 mg PO DAILY [facility]; Protocol Last Admin: 06/06/23 08:23 Dose: 40 mg Documented By: PRINCE Hydroxyzine HCl (Hydroxyzine Hcl 25 Mg Tablet) 12.5 mg PO DAILY PRN PRN Reason: itch Last Admin: 06/06/23 01:33 Dose: 12.5 mg Documented By: JERICA Lactulose (Lactulose 20 Gm/30 Ml Solution) 30 gm PO TID [facility] Last Admin: 06/06/23 08:21 Dose: 30 gm Documented By: PRINCE Magnesium Oxide (Magnesium Oxide 400 Mg Tablet) 400 mg PO DAILY [facility] Last Admin: 06/06/23 08:23 Dose: 400 mg Documented By: PRINCE Melatonin (Melatonin 3 Mg Tablet) 6 mg PO BEDTIME PRN PRN Reason: Insomnia Multivitamins/Vitamin C (Multivitamin Tablet) 1 tab PO DAILY [facility] Last Admin: 06/06/23 08:23 Dose: 1 tab Documented By: PRINCE Omeprazole (Omeprazole 20 Mg Capsule.Dr) 20 mg PO DAILY PRN PRN Reason: Gastric Reflux Ondansetron HCl (Ondansetron Hcl 4 Mg/2 Ml Vial) 4 mg IVPUSH Q8H PRN PRN Reason: Nausea and Vomiting Rifaximin (Rifaximin 550 Mg Tablet) 550 mg PO BID [facility] Last Admin: 06/06/23 08:23 Dose: 550 mg Documented By: PRINCE Sodium Chloride (0.9 % Sodium Chloride Flush 3 Ml Syringe) 3 [facility] Last Admin: 06/06/23 08:24 Dose: 3 ml Documented By: PRINCE Spironolactone (Spironolactone 25 Mg Tablet) 50 mg PO DAILY [facility]; Protocol Last Admin: 06/06/23 08:23 Dose: 50 mg Documented By: PRINCE Thiamine HCl (Thiamine Hcl 100 Mg Tablet) 100 mg PO DAILY [facility] Last Admin: 06/06/23 08:24 Dose: 100 mg Documented By: PRINCE Timolol Maleate (Timolol Maleate 0.5 % Oph Anne 5 Ml Drbtl) 1 drop EYE-BOTH BID [facility] Last Admin: 06/06/23 08:31 Dose: Not Given Documented By: PRINCE Non-Admin Reason: Med Not Available Labs 06/06/23 06:55 06/06/23 06:55 Labs: Laboratory Results - last 24 hr 06/05/23 06/05/23 06/05/23 16:16 16:17 16:29 MCV 88.9 MCH 29.5 MCHC 33.2 RDW 20.1 H Plt Count 126 L MPV 10.8 Immature Gran % (Auto) 0.3 Neut % (Auto) 62.5 Lymph % (Auto) 24.7 Shannon % (Auto) 9.4 Eos % (Auto) 2.4 Baso % (Auto) 0.7 Lymph # (Auto) 1.8 Shannon # (Auto) 0.7 Eos # (Auto) 0.2 Baso # (Auto) 0.1 Abs Immat Gran (auto) 0.02 Absolute Neuts (auto) 4.4 Absolute Nucleated RBC 0.000 Nucleated RBC % (auto) 0.0 PT 14.1 H INR 1.2 H Anion Gap 11 L Estim Creat Clear Calc 57.1 Estimated GFR 57 Random Glucose 100 Lactic Acid 1.5 Calcium 10.0 D Magnesium 1.8 Total Bilirubin 2.4 H Direct Bilirubin 1.3 H AST 92 H ALT 46 H Alkaline Phosphatase 201 H Ammonia 78 H Total Protein 8.4 H Albumin 3.0 L Lipase 47 TSH 2.43 Urine Color Yellow Urine Appearance Clear Urine pH 8.5 Ur Specific [place] 1.010 Urine Protein Negative Urine Glucose (UA) Negative Urine Ketones Negative Urine Blood Negative Urine Nitrite Negative Ur Leukocyte Esterase Negative Urine Opiates Screen Not Detected Urine Fentanyl Screen Not Detected Ur Barbiturates Screen Not Detected Ur Phencyclidine Scrn Not Detected Ur Amphetamines Screen Not Detected U Benzodiazepines Scrn Not Detected Urine Cocaine Screen Not Detected U Marijuana (THC) Screen Not Detected Ethyl Alcohol < 10 COVID-19 ([facility]) Negative COVID-19 Clin Com See Note Influenza Type A (DIONISIO) Negative Influenza Type B (DIONISIO) Negative Influenza A & B Note See Note 06/06/23 06/06/23 06:55 10:17 MCV 88.2 MCH 29.3 MCHC 33.2 RDW 20.0 H Plt Count 119 L MPV 11.3 Immature Gran % (Auto) 0.1 Neut % (Auto) 55.4 Lymph % (Auto) 30.6 Shannon % (Auto) 11.0 Eos % (Auto) 2.2 Baso % (Auto) 0.7 Lymph # (Auto) 2.2 Shannon # (Auto) 0.8 Eos # (Auto) 0.2 Baso # (Auto) 0.1 Abs Immat Gran (auto) 0.01 Absolute Neuts (auto) 4.0 Absolute Nucleated RBC 0.000 Nucleated RBC % (auto) 0.0 PT INR Anion Gap 13 Estim Creat Clear Calc 54.0 Estimated GFR 54 Random Glucose 87 Lactic Acid Calcium 9.8 Magnesium Total Bilirubin 3.3 H Direct Bilirubin 1.7 H AST 92 H ALT 43 H Alkaline Phosphatase 168 H Ammonia 75 H Total Protein 7.9 Albumin 2.9 L Lipase TSH Urine Color Urine Appearance Urine pH Ur Specific [place] Urine Protein Urine Glucose (UA) Urine Ketones Urine Blood Urine Nitrite Ur Leukocyte Esterase Urine Opiates Screen Urine Fentanyl Screen Ur Barbiturates Screen Ur Phencyclidine Scrn Ur Amphetamines Screen U Benzodiazepines Scrn Urine Cocaine Screen U Marijuana (THC) Screen Ethyl Alcohol COVID-19 ([facility]) COVID-19 Clin Com Influenza Type A (DIONISIO) Influenza Type B (DIONISIO) Influenza A & B Note Assessment and Plan (1) Hepatic encephalopathy: Status: Acute (2) Cholangiocarcinoma: Status: Acute Plan This is a 77-year-old male with 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 Metabolic encephalopathy due to Hepatic encephalopathy due to medication noncompliance: improving Ammonia found to be elevated in the ER continue scheduled lactulose. Educated the patient and about the importance of being compliance with p.o. lactulose of at home. No GI bleed, infection, hypokalemia, renal failure, hypoxia, hyperglycemia as a precipitating cause. Repeat ammonia similar, only 1 BM will continue lactulose and monitor for effect Cholangiocarcinoma with hepatic metastasis: On nivolumab every 2 weeks as an outpatient. Follows up with Oncology at [facility] Liver cirrhosis: Continue diuretics, lactulose and rifaximin Coronary artery disease/CVA: On antiplatelet agent. Not on statin chronic Thrombocytopenia r/t liver disease pruritis may be related to undelrying liver disease was recently started on steroid cream and hydroxyzine as outpatient - will continue DM not on meds at baseline follow POC DVT prophylaxis: Lovenox Full code Patient requires ongoing inpatient stay for lactulose and close monitoring of mental status Quality Stroke Does the patient have a stroke diagnosis?: No VTE Prior VTE?: No VTE Risk Level:: Medical - moderate - high VTE Device Contraindication: Treatment Not Indicated VTE Drug Contraindication: N/A - Med Ordered
[2023-06-06 16:48] LABS: Glucose, Whole Blood 138 mg/dL (60-115)
[2023-06-06] MEDS: Triamcinolone Acet 0.5 % Oint 15 GM TUBE 1 APPL TOPICAL (20:36)
[2023-06-06] MEDS: Enoxaparin Sodium 40 MG/0.4 ML SYRINGE SUBCUT (20:36)
[2023-06-06 20:37] LABS: Glucose, Whole Blood 132 mg/dL (60-115)
[2023-06-06] MEDS: timoloL maleate 0.5 % Oph Sol 5 ML DRBTL 1 DROP EYE-BOTH (22:07)
[2023-06-07] MEDS: 0.9 % Sodium Chloride Flush 3 ML SYRINGE IVFLUSH (00:09)
[2023-06-07 02:32] VITALS: BP 119/59; PULSE 80; RESP 19; TEMP 36.6; O2SAT 97
[2023-06-07 07:31] VITALS: BP 107/55; PULSE 80; RESP 20; TEMP 36.6; O2SAT 98
[2023-06-07 07:46] LABS: Glucose, Whole Blood 105 mg/dL (60-115)
[2023-06-07] MEDS: Multivitamin TABLET 1 TAB PO (08:07)
[2023-06-07] MEDS: carvediloL 6.25 MG TABLET PO (08:07)
[2023-06-07] MEDS: rifAXIMin 550 MG TABLET PO (08:07)
[2023-06-07] MEDS: Furosemide 40 MG TABLET PO (08:07)
[2023-06-07] MEDS: Thiamine HCL 100 MG TABLET PO (08:07)
[2023-06-07] MEDS: Magnesium Oxide 400 MG TABLET PO (08:07)
[2023-06-07] MEDS: Cyanocobalamin (Vitamin B-12) 1,000 MCG TABLET 1000 MCG PO (08:07)
[2023-06-07] MEDS: Aspirin 81 MG TAB.CHEW PO (08:07)
[2023-06-07] MEDS: Spironolactone 25 MG TABLET 50 MG PO (08:07)
[2023-06-07] MEDS: Lactulose 20 GM/30 ML SOLUTION 30 GM PO ×2 (08:07→14:40)
[2023-06-07] MEDS: timoloL maleate 0.5 % Oph Sol 5 ML DRBTL 1 DROP EYE-BOTH (08:08)
[2023-06-07 11:10] LABS: Ammonia 74 umol/L (13-55)
[2023-06-07 11:12] VITALS: BP 106/55; PULSE 76; RESP 20; TEMP 36.8; O2SAT 96
[2023-06-07 11:30] LABS: Glucose, Whole Blood 154 mg/dL (60-115)
[2023-06-07] MEDS: Insulin Lispro 100 UNIT/ML 3 ML VIAL SUBCUT (11:43)
--- NOTE | 2023-06-07 13:16 | PM.DS ---
DS: Providers Provider Date of Service: 06/07/23 Date of admission: 06/06/23 14:30 Date of discharge: 06/07/23 Primary care physician: Bryan Castrejon MD Attending physician on discharge: Valdo Bautista Discharging clinician: Ana María Nava DS: Diagnosis Discharge Diagnosis (1) Hepatic encephalopathy: Status: Acute (2) Cholangiocarcinoma: Status: Acute DS: Summary Hospital Course Hospital Course: From H&P on the day of admission This is a 77-year-old male with 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 Unable to obtain history from the patient, history obtained from family at bedside. Patient is awake and alert but does not know why he is in the hospital. The states that patient has been having on and off confusion for the last 10 days. His ammonia level was checked about 5 days prior to presentation and was normal. The admits that the patient has not been compliant with his home p.o. lactulose. The confusion was noted to be worse on the day of presentation. The patient did not make sense when he was talking and was trying to search the house for his staff. Patient is on nivolumab every 2 weeks for cholangiocarcinoma and follows up with Oncology outpatient. He recently got an MRI of the abdomen 2 days ago at [facility]. No fever, chills, black stools, blood in stools noted. No abdominal pain as per the . Unable to obtain extensive review of systems Metabolic encephalopathy due to Hepatic encephalopathy due to medication noncompliance: Patient does not take lactulose as prescribed at home. He typically takes it once per day. Ammonia level was elevated, he was resumed on 3 times per day lactulose and his mental status improved. Brain CT was negative for acute changes, no infection noted, tox screen negative, blood sugar stable, kidney function at baseline. Educated the patient and about the importance of being compliance with p.o. lactulose of at home. Patient in in agreement. Time Attestation Discharge coordination time: Greater than 30 minutes Quality: Safe Use of Opioids Does Pt have an Active Cancer Diagnosis on the Problem List?: No Quality: Stroke Does the patient have a stroke diagnosis?: No Physical Exam Vital Signs: Vital Signs: Last Vital Signs Temp 98.2 F 06/07/23 11:12 Pulse 76 06/07/23 11:12 Resp 20 06/07/23 11:12 BP 106/55 L 06/07/23 11:12 Pulse Ox 96 06/07/23 11:12 O2 Del Method Room Air 06/07/23 11:12 BMI result Body Mass Index 28.8 Const: General: comfortable, no acute distress, alert and awake Nutritional Appearance: average body habitus Orientation/consciousness: oriented to person and oriented to place Resp: Effort & Inspection: normal respiratory effort, able to speak in complete sentences, no respiratory distress and no use of accessory muscles Cardio: Rate: regular rate GI: Inspection: No distended Palpation (GI): Soft to palpation and nontender Skin: Other: mild redness to right lower leg with some excoriations Neuro: General: oriented to person, oriented to place and moves all extremities Extrem: General: Yes no pedal edema DS: Data Data Completed and Pending Completed studies during hospitalization [Text1]: Procedures Drainage of Peritoneal Cavity, Percutaneous Approach (01/10/23) Excision of Stomach, Pylorus, Via Natural or Artificial Opening Endoscopic, Diagnostic (10/27/22) Labs on day of discharge: Laboratory Results - last 24 hr 06/06/23 06/06/23 06/07/23 16:43 20:30 07:29 POC Glucose 138 H 132 H 105 Ammonia 06/07/23 06/07/23 10:34 11:16 POC Glucose 154 H Ammonia 74 H Preliminary micro results at discharge 06/05/23 16:28 Blood Culture - Preliminary Blood - Venous No growth after 24 hours. 06/05/23 16:17 Blood Culture - Preliminary Blood - Venous No growth after 24 hours. Discharge Plan Discharge Anticipated Discharge Date/Time: 06/07/23 14:06 Patient Disposition: Home, Self-Care Discharge Diagnosis: hepatic encephalopathy Referrals: Bryan Castrejon MD [Primary Care Provider] - 1 Week Discharge Medications: Continued Xifaxan 550 mg Tablet 550 mg PO BID Qty: 1 0RF furosemide 40 mg tablet 40 mg PO DAILY carvedilol 6.25 mg tablet 6.25 mg PO BID cyanocobalamin (vitamin B-12) [Vitamin B-12] 1,000 mcg tablet 1,000 mcg PO DAILY thiamine HCl (vitamin B1) 100 mg tablet 100 mg PO DAILY omeprazole 10 mg capsule,delayed release(DR/EC) 10 mg PO DAILY PRN (Reason: Gastric Reflux) gabapentin 100 mg capsule 100 mg PO BEDTIME PRN (Reason: Pain) spironolactone 50 mg tablet 50 mg PO DAILY magnesium gluconate [Mag-G] 27 mg magnesium (500 mg) tablet 27 mg PO DAILY multivitamin with folic acid [Daily-Mel (with folic acid)] 400 mcg tablet 1 tab PO DAILY aspirin 81 mg Tablet,Chewable 81 mg PO DAILY acetaminophen 500 mg tablet 500 mg PO Q8H PRN (Reason: mild pain) hydroxyzine HCl 25 mg tablet 12.5 mg PO DAILY PRN (Reason: itch) betamethasone dipropionate 0.05 % ointment 1 appl topical BID PRN (Reason: Itching) timolol maleate 0.5 % drops 1 drp ophthalmic (eye) BID latanoprost 0.005 % drops 1 drp ophthalmic (eye) BEDTIME Changed lactulose 20 gram/30 mL solution 30 ml PO TID Qty: 1200 0RF Held diphenhydramine HCl [Benadryl] 25 mg capsule 25 mg PO TID PRN (Reason: Itching) Hold Instructions: limit use Discharge Orders: Discharge Order (Routine); Ordered 06/07/23 Ordered By: Ana María Nava Activity on Discharge: As tolerated Stand Alone Forms: Patient Portal Discharge page Care Plan Goals: prevention of hepatic encephaloopathy Health Concerns: hepatic encephalopathy Plan of Treatment: resume lactulose as prescribed at 3 times per day - goal for 2-3 BMs daily follow up with oncologist as scheduled limit benadryl use if able as can cause sleepiness/confusion Assessment: see discharge summary
--- NOTE | 2023-06-07 14:31 | MHC.CM.PN ---
Pt is medically cleared for D/C home self-care, pts to transport him home.
== END 2023-06-07 15:22 | disposition home or self-care (01) | DRG 441 ==
LOC: HO.ED 19:11 → HO.EDOVER 19:58 → HO.IMC 20:45
PROVIDERS: Admitting Provider Student in an Organized Health Care Education/Training Program; Emergency Provider Emergency Medicine; PCP Family Medicine; Visit Provider Physician Assistant Medical
DX: K76.82 Hepatic encephalopathy (principal); G93.41 Metabolic encephalopathy; C24.0 Malignant neoplasm of extrahepatic bile duct; C22.1 Intrahepatic bile duct carcinoma; I25.10 Atherosclerotic heart disease of native coronary artery without angina pectoris; T47.3X6A Underdosing of saline and osmotic laxatives, initial encounter; K74.60 Unspecified cirrhosis of liver; D69.59 Other secondary thrombocytopenia; E11.9 Type 2 diabetes mellitus without complications; E87.6 Hypokalemia; K75.81 Nonalcoholic steatohepatitis (NASH); K74.69 Other cirrhosis of liver; Z95.5 Presence of coronary angioplasty implant and graft; Z20.822 Contact with and (suspected) exposure to COVID-19; Z87.891 Personal history of nicotine dependence; Z79.82 Long term (current) use of aspirin; Z79.899 Other long term (current) drug therapy
CPT/HCPCS: 36415; 70450; 71045; 80048; 80076; 80307; 81003; 82140; 82947; 83605; 83690; 83735; 84443; 84484; 85025; 85610; 87040; 87502; 87635; 93005; 99222; 99285; J1650

== ENCOUNTER → 2023-06-05 14:59 | Outpatient (BNV) | payer MEDICARE, SELFPAY | PROVIDERS: Emergency Provider Emergency Medicine; PCP Family Medicine; Visit Provider Internal Medicine Cardiovascular Disease | DX: I49.3 Ventricular premature depolarization (principal) | CPT/HCPCS: 93010 ==

== ENCOUNTER → 2023-06-05 19:46 | Outpatient (BNV) | payer MEDICARE, SELFPAY | PROVIDERS: Admitting Provider Student in an Organized Health Care Education/Training Program; Emergency Provider Emergency Medicine; PCP Family Medicine; Visit Provider Student in an Organized Health Care Education/Training Program | DX: K76.82 Hepatic encephalopathy (principal); C22.1 Intrahepatic bile duct carcinoma | CPT/HCPCS: 99222; 99232; 99239 ==

== ENCOUNTER 2023-07-26 09:29 | Inpatient (IN) | payer MEDICARE, OTHER, SELFPAY ==
--- NOTE | ~2023-07-26 | CT_ITS ---
EXAMINATION: CT HEAD WITHOUT CONTRAST CLINICAL INFORMATION: AMS COMPARISON: None available. TECHNIQUE: Contiguous axial imaging was performed from the skull base to vertex without intravenous administration of contrast. This CT examination was performed using dose optimization techniques as appropriate, variously including the following: *Automated exposure control *Adjustment of mA and/or kV according to patient size (this includes techniques or standardized protocols for targeted exams where dose is matched to indication/reason for exam; i.e. extremities or head) *Use of iterative reconstruction technique DLP: 746 mGy-cm FINDINGS: There is no acute intra-axial, extra-axial bleed, masses or midline shift. There is no acute infarction evolution. There is no edema. The burger to white matter differentiation is maintained normal. The lateral ventricles are symmetrical in size and configuration but enlarged. Bone windows reveal no calvarial abnormality. No scalp soft tissue abnormality. CT/CT head/brain wo IV con IMPRESSION: No acute intracranial process seen.
--- NOTE | ~2023-07-26 | XR_ITS ---
EXAMINATION: XR CHEST CLINICAL INFORMATION: Weakness. COMPARISON: 06/05/2023 TECHNIQUE: Frontal view of the chest was obtained. FINDINGS: Low lung volumes. No focal consolidation. No pleural effusion. Cardiac silhouette is unchanged. XR/XR chest 1V IMPRESSION: No acute abnormality.
[2023-07-26 09:37] VITALS: BP 150/70; PULSE 100; O2SAT 100
[2023-07-26 09:44] VITALS: BP 151/73; PULSE 72; RESP 12; TEMP 36.6; O2SAT 99; BMI 35.9
--- NOTE | 2023-07-26 09:48 | ED.AMS ---
HPI - Altered Mental Status General Chief Complaint: Altered Mental Status Stated Complaint: AMS SINCE YESTERDAY HX LIVER CA Time Seen by Provider: 07/26/23 09:37 Source: EMS and old records reviewed Mode of arrival: EMS Limitations: altered mental status History of Present Illness HPI narrative: 77 yo male with PMH of HTN, DM, CAD s/p PCI, CVA, SVT, NSAH - hx of cholangiocarcinoma and hepatic mets currently supposed to be on oral chemo through [facility] but has not started it yet, cirrhosis, here with confusion and abnormal movements and weaknes since yesterday AM - notes he is taking his medications and having diarrhea. She states he is mumbling and twitching. No trauma or hx of seizures. MD complaint: altered mental status and decreased responsiveness Onset (ago): hour(s) (24) Timing confirmed by: spouse Severity: severe Consistency of symptoms: waxing and waning Context: cancer and liver disease Associated symptoms: loss of appetite, malaise and weakness Related Data Home Medications Medication Instructions Recorded Confirmed latanoprost 0.005 % eye drops 1 drp ophthalmic (eye) BEDTIME 01/29/22 06/05/23 timolol maleate 0.5 % eye drops 1 drp ophthalmic (eye) BID 01/29/22 06/05/23 aspirin 81 mg chewable tablet 81 mg PO DAILY 01/09/23 06/05/23 carvedilol 6.25 mg tablet 6.25 mg PO BID 01/09/23 06/05/23 cyanocobalamin (vitamin B-12) 1,000 mcg PO DAILY 01/09/23 06/05/23 1,000 mcg tablet (Vitamin B-12) furosemide 40 mg tablet 40 mg PO DAILY 01/09/23 06/05/23 gabapentin 100 mg capsule 100 mg PO BEDTIME PRN Pain 01/09/23 06/05/23 magnesium gluconate 27 mg 27 mg PO DAILY 01/09/23 06/05/23 magnesium (500 mg) tablet (Mag-G) multivitamin with folic acid 400 1 tab PO DAILY 01/09/23 06/05/23 mcg tablet (Daily-Mel (with folic acid)) omeprazole 10 mg capsule,delayed 10 mg PO DAILY PRN Gastric Reflux 01/09/23 06/05/23 release spironolactone 50 mg tablet 50 mg PO DAILY 01/09/23 06/05/23 thiamine HCl (vitamin B1) 100 mg 100 mg PO DAILY 01/09/23 06/05/23 tablet diphenhydramine HCl 25 mg capsule 25 mg PO TID PRN Itching 02/22/23 06/05/23 (Benadryl) acetaminophen 500 mg tablet 500 mg PO Q8H PRN mild pain 06/05/23 06/05/23 betamethasone dipropionate 0.05 % 1 appl topical BID PRN Itching 06/05/23 06/05/23 topical ointment hydroxyzine HCl 25 mg tablet 12.5 mg PO DAILY PRN itch 06/05/23 06/05/23 Previous Rx's Medication Instructions Recorded lactulose 20 gram/30 mL oral 30 ml PO TID Constipation #1,200 mL 06/07/23 solution rifaximin 550 mg tablet (Xifaxan) 550 mg PO BID 30 days #60 tabs 06/24/23 Allergies Allergy/AdvReac Type Severity Reaction Status Date / Time No Known Allergies Allergy Verified 04/25/23 14:46 [No Known Allergies*] Review of Systems Review of Systems: ROS unable to be obtained due to altered mental status [facility] Past Medical History Source: old records reviewed and obtained from family Medical History Cholangiocarcinoma BOBO (nonalcoholic steatohepatitis) Bilateral inguinal hernia Gastric varix Type 2 diabetes mellitus with unspecified complications NSVT (nonsustained ventricular tachycardia) Essential hypertension Ascending aorta dilatation Ischemic stroke Atherosclerotic cardiovascular disease Surgical History H/O colonoscopy History of esophagogastroduodenoscopy (EGD) History of cardiac catheterization (~04/2015) Family History Family History Father No problems noted. Mother No problems noted. Social History Social History Household Members: Spouse Housing: House Do you presently have visiting nurse or other home services: Yes Unable to assess alcohol history related to: Unable to respond [place] intake: [place] [facility] [place] Tobacco Use Status: Former Tobacco user Quit Date: 15 years ago Cigarettes Per Day: 10 Second Hand Smoke Exposure: No Use of substances other than those prescribed or required for medical reasons: Unable to respond Advance Directives: Yes Advance Directives on File: Yes Advance Directives Date on File: 01/10/23 service: No Physical Exam ED Vital Signs: Vital Signs - 24 hr 07/26/23 09:44 Temperature 97.9 F Pulse Rate 72 Respiratory Rate 12 Blood Pressure 151/73 H Pulse Oximetry 99 Oxygen Delivery Method Room Air BMI result Body Mass Index 35.9 Appearance: Somnolent but woke by voice and tactile stimuli. Confused. Mild acute distress. Eyes: Pupils equal, round and reactive to light. Scleral icterus has nystagmus in both eyes and seems to have gaze preference to the left ENT: Pharynx mild dry MM, atraumatic Neck: Normal inspection. Neck supple. CVS: Normal heart rate and rhythm. Pulses normal. Respiratory: No respiratory distress. Breath sounds normal. Abdomen: Soft and nontender. Ascites noted Skin: Skin warm and dry. jaundice skin color. Normal skin turgor. Extremities: No lower extremity edema. No calf ttp Neuro: confused has tremors in both hands and asterixis, tries to grasp with both hands is following and tracking voice, mumbling unable to fully perform neuro Course Course Course Narrative: very agitated trying to leave cannot redirect IM zyprexa given Reevaluation(s) Reevaluation #1: patinet much better after zyprexa Medications Administered Discontinued Medications Generic Name Dose Route Start Last Admin Trade Name Freq PRN Reason Stop Dose Admin Lactulose 20 gm 07/26/23 10:35 07/26/23 10:46 Lactulose 20 Gm/30 Ml Solution PO 07/26/23 10:36 20 gm ONCE ONE Administration Olanzapine 5 mg 07/26/23 11:20 07/26/23 11:26 Olanzapine 10 Mg Vial IM 07/26/23 11:21 5 mg STAT STA Administration Medical Decision Making Medical Decision Making MDM Narrative: 77 yo male with PMH of HTN, DM, CAD s/p PCI, CVA, SVT, NSAH - hx of cholangiocarcinoma and hepatic mets currently supposed to be on oral chemo through [facility] but has not started it yet, cirrhosis here with abnormal tremors, asterixis, jaundice and confusion over 24 hours at this time reports compliance with lactulose and rifaximin will need labs, ammonia level, CT head. It is both sides the tremors and he is awake and following some commands so seizure unlikely. Possible hepatic encephalopathy, mass, stroke, other toxic/metabolic encephalopathy Differential Diagnosis Differential Diagnoses: The differential diagnosis associated with the presentation includes stroke, hepatic encephalopathy, cancer Admission/Observation Consideration of admission/observation: Escalation of care including admission/observation considered admit for hepatic encephalopathy Consult Healthcare Provider Management of the patient was discussed with: Hospitalist (will admit) Lab Data MDM Lab Attestation statement: I reviewed the patient's lab results. 07/26/23 09:52 07/26/23 09:52 Labs: Lab Results 07/26/23 07/26/23 07/26/23 Range/Units 09:52 09:57 10:01 WBC 7.6 (4.8-10.8) X10*3/uL RBC 3.53 L (4.60-5.80) X10*6/uL Hgb 10.6 L (14.0-18.0) g/dl Hct 31.4 L (42.0-52.0) % MCV 89.0 (80.0-98.0) fL MCH 30.0 (27.0-33.0) pg MCHC 33.8 (31.0-36.0) g/dl RDW 17.5 H (11.0-16.0) % Plt Count 130 L (160-400) X10*3/uL MPV 10.6 (9.4-12.4) fL Immature Gran % (Auto) 0.3 (0.0-0.4) % Neut % (Auto) 66.2 (45-73) % Lymph % (Auto) 21.7 (20-40) % [place] % (Auto) 8.5 (2-11) % Eos % (Auto) 2.8 (0-4) % Baso % (Auto) 0.5 (0-2) % Lymph # (Auto) 1.7 (1.2-4.9) X10*3/uL [place]mer # (Auto) 0.7 (0.1-1.2) X10*3/uL Eos # (Auto) 0.2 (0.0-0.4) X10*3/uL Baso # (Auto) 0.0 (0.0-0.2) X10*3/uL Abs Immat Gran (auto) 0.02 (0.00-0.03) X10*3/uL Absolute Neuts (auto) 5.1 (2.0-8.3) x10*3/uL Absolute Nucleated RBC 0.000 (0.0-0.012) X10*3/uL Nucleated RBC % (auto) 0.0 (0.0-0.2) /100WBC PT 14.1 H (11.1-13.3) SEC INR 1.2 H (0.9-1.1) VBG pH 7.59 H (7.32-7.43) VBG pCO2 20 mmHg VBG pO2 161 mmHg VBG HCO3 20 L (22-26) mmol/L VBG O2 Saturation 100.0 % VBG Base Excess 0.1 mmol/L Sodium 135 (135-145) mmol/L Potassium 4.6 (3.3-5.1) mmol/L Chloride 107 (96-108) mmol/L Carbon Dioxide 17 L (22-29) mmol/L Anion Gap 16 (12-20) BUN 20 H (9-16) mg/dL Creatinine 1.43 H (0.5-1.4) mg/dL Estim Creat Clear Calc 41.6 Estimated GFR 48 Random Glucose 120 H (60-115) mg/dL Lactic Acid 1.6 (0.5-2.0) mmol/L Calcium 9.1 D (8.4-10.2) mg/dL Magnesium 1.9 (1.6-2.6) mg/dL Total Bilirubin 2.6 H (0.0-1.0) mg/dL Direct Bilirubin 1.1 H (0.0-0.5) mg/dL AST 80 H (5-37) U/L ALT 41 H (0-40) U/L Alkaline Phosphatase 219 H (39-117) U/L Ammonia 92 H (13-55) umol/L Troponin I High Sens 4.1 D (<3.5-35.0) ng/L C-Reactive Protein 1.41 H (< or = 0.50) mg/dL B-Natriuretic Peptide 114 H (<100) pg/mL Total Protein 7.8 (6.5-8.0) g/dL Albumin 2.9 L (3.5-5.0) g/dL Lipase 41 (8-78) U/L Procalcitonin 0.13 ng/mL TSH 2.18 (0.32-4.0) uIU/mL COVID-19 ([facility]) Negative (Negative) COVID-19 Clin Com See Note Independent Interpretation I performed an independent interpretation of an: EKG, Plain X-Ray (no pneumonia) and CT Scan (normal ) Radiology Impression Discussion of test interpretation with radiology: I have reviewed the radiologist's reading. Independent Historian Clinical information obtained from an independent historian. History obtained from or confirmed by: Spouse External Record Review External record reviewed: Inpatient record Critical Care Time Critical Care Time Critical Care Time: Yes Total Critical Care Time: 40 Attestation: review of records, IM zyprexa for agiation, improved I attest to this time spent taking care of the patient Discharge Plan Discharge Clinical Impression: Acute hepatic encephalopathy Patient Disposition: Admitted As Inpatient
[2023-07-26 10:01] LABS: MANUAL DIFF FLAG NO
[2023-07-26 10:05] LABS: VBG Base Excess 0.1 mmol/L; VBG HCO3 20 mmol/L (22-26); VBG pCO2 20 mmHg; VBG pH 7.59 (7.32-7.43); VBG pO2 161 mmHg
[2023-07-26 10:07] LABS: Basophils Percent Auto 0.5 % (0-2); Eosinophils Absolute Auto 0.2 X10*3/uL (0.0-0.4); Eosinophils Percent Auto 2.8 % (0-4); Hematocrit 31.4 % (42.0-52.0); Hemoglobin 10.6 g/dl (14.0-18.0); Imm Gran Abs Auto 0.02 X10*3/uL (0.00-0.03); Imm Gran Pct Auto 0.3 % (0.0-0.4); Lymphocytes Absolute Auto 1.7 X10*3/uL (1.2-4.9); Lymphocytes Percent Auto 21.7 % (20-40); Mean Corpuscular HGB Conc 33.8 g/dl (31.0-36.0); Mean Platelet Volume 10.6 fL (9.4-12.4); Monocytes Absolute Auto 0.7 X10*3/uL (0.1-1.2); Monocytes Percent Auto 8.5 % (2-11); Neutrophils Absolute Auto 5.1 x10*3/uL (2.0-8.3); Neutrophils Percent Auto 66.2 % (45-73); Platelet Count 130 X10*3/uL (160-400); Red Blood Count 3.53 X10*6/uL (4.60-5.80); Red Cell Distribution Width 17.5 % (11.0-16.0); White Blood Count 7.6 X10*3/uL (4.8-10.8)
[2023-07-26 10:11] LABS: INTERNATIONAL NORM RATIO 1.2 (0.9-1.1); Prothrombin Time 14.1 SEC (11.1-13.3)
[2023-07-26 10:11] LABS: Venous Blood Gas Refer to POC result
[2023-07-26 10:16] LABS: IDNOW Serial# 58CA691E
[2023-07-26 10:17] LABS: COVID-19 Test Negative (Negative)
[2023-07-26 10:25] LABS: Lactic Acid 1.6 mmol/L (0.5-2.0)
[2023-07-26 10:30] LABS: Ammonia 92 umol/L (13-55); B Type Natriuretic Peptide 114 pg/mL (<100)
[2023-07-26 10:36] LABS: Troponin-I High Sensitivity 4.1 ng/L (<3.5-35.0)
--- NOTE | 2023-07-26 10:37 | PC.NURSE ---
Pt to ED via EMS from home with c/o AMS since yesterday am. Pt has hx cirrhosis and liver cancer, reports hx of hepatic encephalopathy - has been compliant with his lactulose and stooling on it. Pt not following commands, has left sided gaze. Pt moving extremities spontaneously on stretcher but not to command. Pupils equal/reactive.
[2023-07-26 10:45] LABS: Alanine Aminotransferase 41 U/L (0-40); Albumin Level 2.9 g/dL (3.5-5.0); Alkaline Phosphatase 219 U/L (39-117); Anion Gap 16 (12-20); Aspartate Amino Transferase 80 U/L (5-37); Bilirubin Direct 1.1 mg/dL (0.0-0.5); Bilirubin Total 2.6 mg/dL (0.0-1.0); Blood Urea Nitrogen 20 mg/dL (9-16); C Reactive Protein 1.41 mg/dL (< or = 0.50); Calcium 9.1 mg/dL (8.4-10.2); Carbon Dioxide 17 mmol/L (22-29); Chloride 107 mmol/L (96-108); Creatinine Clr Calc Pharmacy 41.6; Estimated Glomerular Filt Rate 48; Glucose Random 120 mg/dL (60-115); Lipase 41 U/L (8-78); Magnesium 1.9 mg/dL (1.6-2.6); Potassium 4.6 mmol/L (3.3-5.1); Sodium 135 mmol/L (135-145); Total Protein 7.8 g/dL (6.5-8.0)
[2023-07-26] MEDS: Lactulose 20 GM/30 ML SOLUTION PO (10:46)
[2023-07-26 10:51] LABS: Procalcitonin 0.13 ng/mL; TSH reflex Free T4 2.18 uIU/mL (0.32-4.0)
--- NOTE | 2023-07-26 10:56 | PC.NURSE ---
Pt conversing with in [facility], pt trying to get oob, confused. Able to be redirected by at this time.
[2023-07-26] MEDS: OLANZapine 10 MG VIAL 5 MG IM (11:26)
--- NOTE | 2023-07-26 11:31 | PC.NURSE ---
Pt continuously trying to get oob- MD made aware. Pt given IM zyprexa. Pt assisted with urinal and voided. Sitter to bedside for safety.
--- NOTE | 2023-07-26 12:54 | P.HPHOSP_ITS ---
History of Present Illness Date of Service: 07/26/23 Attending physician on admission: Wendi Mota Chief Complaint: Altered mental status Pt is a 77-year-old male with a PMH significant for?cholangiocarcinoma with hepatic metastasis not yet on oral chemo through [facility], liver cirrhosis, CAD s/p PCI, hx of ischemic CVA, and HTN who presents to the ED with?altered mental status. Pt is somnolent but arousable, the currently nonverbal at time of interview and exam. Family is at bedside who helps supply HPI. Patient's states that patient has been ?out of it? since yesterday morning. At times was speaking nonsensically yesterday and had difficulty walking or holding onto objects due to shaking. Symptoms worsened last night and then into the morning when patient became nonverbal and began using the corner of his bedroom as a bathroom. admits that she has not been administering pt's lactulose correctly, only giving it once or twice a day. Discussed with her the importance of adhering to a proper dosing schedule. In the ED pt was slightly hypertensive up to 151/73, vitals otherwise WNL. Labs were significant for creatinine 1.43, bilirubin 2.6, AST 80, ALT 41, alk-phos 219, ammonia 92. BNP only mildly elevated at 114. UA pending. Patient tested negative for COVID. CXR showed no acute abnormality. CT?of head showed no acute intracranial process. Pt was treated with lactulose 20 g p.o.. Pt also became agitated and given Zyprexa 5 mg IM. Pt will be admitted to the hospital for treatment further evaluation of acute hepatic encephalopathy in the setting of cholangiocarcinoma with hepatic metastasis. Review of Systems 2 Review of Systems: Unable to obtain due to patient's mentation [facility] Medical History Cholangiocarcinoma BOBO (nonalcoholic steatohepatitis) Bilateral inguinal hernia Gastric varix Type 2 diabetes mellitus with unspecified complications NSVT (nonsustained ventricular tachycardia) Essential hypertension Ascending aorta dilatation Ischemic stroke Atherosclerotic cardiovascular disease Family History Father No problems noted. Mother No problems noted. Surgical History H/O colonoscopy History of esophagogastroduodenoscopy (EGD) History of cardiac catheterization (~04/2015) Social History Household Members: Spouse Housing: House Do you presently have visiting nurse or other home services: No Unable to assess alcohol history related to: Unable to respond Alcohol intake: former Comment: [facility] Patient Tobacco Use Status: Former Tobacco user Quit Date: 15 years ago Cigarettes Per Day: 10 Second Hand Smoke Exposure: No Use of substances other than those prescribed or required for medical reasons: No Currently Displaying Signs/Symptoms of Drug Intoxication Withdrawal: No Have you been hit, kicked, punched, or otherwise hurt by someone within the past year? If so, by whom?: No Do you feel safe in your current relationship?: Yes Is there a partner from a previous relationship who is making you feel unsafe now?: No Are you made to feel afraid or neglected: No Advance Directives: Yes Advance Directives on File: Yes Advance Directives Date on File: 01/10/23 Do you have thoughts of harming others: None Do you have a plan to hurt others: No Plan Recently lost weight without trying: No Eating poorly because of decreased appetite: No Nutrition Risks: Acute nausea or vomiting x1 week Poor oral hygiene: No service: No Meds Allergies Allergy/AdvReac Type Severity Reaction Status Date / Time No Known Allergies Allergy Verified 04/25/23 14:46 [No Known Allergies*] Home Medications Medication Instructions Recorded Confirmed Last Taken Type latanoprost 0.005 % eye drops 1 drp ophthalmic (eye) BEDTIME 01/29/22 07/26/23 07/25/23 History timolol maleate 0.5 % eye drops 1 drp ophthalmic (eye) BID 01/29/22 07/26/23 07/25/23 History carvedilol 6.25 mg tablet 6.25 mg PO BID 01/09/23 07/26/23 07/25/23 History cyanocobalamin (vitamin B-12) 1,000 mcg PO DAILY 01/09/23 07/26/23 07/25/23 History 1,000 mcg tablet (Vitamin B-12) furosemide 40 mg tablet 40 mg PO DAILY 01/09/23 07/26/23 07/25/23 History gabapentin 100 mg capsule 100 mg PO BEDTIME PRN Pain 01/09/23 07/26/23 01/08/23 History magnesium gluconate 27 mg 27 mg PO DAILY 01/09/23 07/26/23 07/25/23 History magnesium (500 mg) tablet (Mag-G) multivitamin with folic acid 400 1 tab PO DAILY 01/09/23 07/26/23 07/25/23 History mcg tablet (Daily-Mel (with folic acid)) omeprazole 10 mg capsule,delayed 10 mg PO DAILY PRN Gastric Reflux 01/09/23 07/26/23 01/08/23 History release spironolactone 50 mg tablet 50 mg PO DAILY 01/09/23 07/26/23 07/25/23 History thiamine HCl (vitamin B1) 100 mg 100 mg PO DAILY 01/09/23 07/26/23 07/25/23 History tablet acetaminophen 500 mg tablet 500 mg PO Q8H PRN mild pain 06/05/23 07/26/23 Unknown History hydroxyzine HCl 25 mg tablet 25 mg PO DAILY PRN itch 06/05/23 07/26/23 Unknown History diclofenac sodium 1 % topical gel 1 g topical QID 07/26/23 07/26/23 07/25/23 History oxycodone 5 mg tablet 5 mg PO Q6H PRN Pain 07/26/23 07/26/23 07/25/23 History prochlorperazine maleate 10 mg 10 mg PO TID PRN nausea/vomiting 07/26/23 07/26/23 Unknown History tablet Physical Exam 2 Vital Signs and Narrative: Vital Signs: Last Vital Signs Temp 97.9 F 07/26/23 09:44 Pulse 72 07/26/23 09:44 Resp 12 07/26/23 09:44 BP 151/73 H 07/26/23 09:44 Pulse Ox 99 07/26/23 09:44 O2 Del Method Room Air 07/26/23 09:44 BMI result Body Mass Index 35.9 General: Somnolent but arousable. Confused, nonverbal. In no acute distress Resp: CTA bilaterally CVS: S1, S2, RRR GI: +BS, NT, no distention Skin: Warm, dry Neuro: Motor grossly intact bilaterally Extremities: No edema Results Labs 07/26/23 09:52 07/27/23 05:18 Labs: Laboratory Results - last 24 hr 07/26/23 07/26/23 07/26/23 09:52 09:57 10:01 MCV 89.0 MCH 30.0 MCHC 33.8 RDW 17.5 H Plt Count 130 L MPV 10.6 Immature Gran % (Auto) 0.3 Neut % (Auto) 66.2 Lymph % (Auto) 21.7 Mcdonald % (Auto) 8.5 Eos % (Auto) 2.8 Baso % (Auto) 0.5 Lymph # (Auto) 1.7 Mcdonald # (Auto) 0.7 Eos # (Auto) 0.2 Baso # (Auto) 0.0 Abs Immat Gran (auto) 0.02 Absolute Neuts (auto) 5.1 Absolute Nucleated RBC 0.000 Nucleated RBC % (auto) 0.0 PT 14.1 H INR 1.2 H VBG pH 7.59 H VBG pCO2 20 VBG pO2 161 VBG HCO3 20 L VBG O2 Saturation 100.0 VBG Base Excess 0.1 Anion Gap 16 Estim Creat Clear Calc 41.6 Estimated GFR 48 Random Glucose 120 H Lactic Acid 1.6 Calcium 9.1 D Magnesium 1.9 Total Bilirubin 2.6 H Direct Bilirubin 1.1 H AST 80 H ALT 41 H Alkaline Phosphatase 219 H Ammonia 92 H C-Reactive Protein 1.41 H B-Natriuretic Peptide 114 H Total Protein 7.8 Albumin 2.9 L Lipase 41 Procalcitonin 0.13 TSH 2.18 COVID-19 ([facility]) Negative COVID-19 Clin Com See Note Imaging Radiologist's Impressions: Impressions Chest X-Ray 07/26/23 10:10 IMPRESSION: No acute abnormality. Head CT 07/26/23 11:05 IMPRESSION: No acute intracranial process seen. Assessment and Plan (1) Acute hepatic encephalopathy: Status: Acute Plan Pt is a 77-year-old male with a PMH significant for?cholangiocarcinoma with hepatic metastasis not yet on oral chemo through [facility], liver cirrhosis, CAD s/p PCI, hx of ischemic CVA, and HTN who presents to the ED with?altered mental status. Pt will be admitted to the hospital for treatment further evaluation of acute hepatic encephalopathy in the setting of cholangiocarcinoma with hepatic metastasis. Hepatic encephalopathy in the setting of liver cirrhosis Pt with altered mental status since yesterday morning Likely secondary to medication noncompliance; has been taking lactulose at most twice a day at home Ammonia elevated at 92 Will start on scheduled lactulose Continue home furosemide, spironolactone, and rifaximin Monitor mentation Cholangiocarcinoma with hepatic metastasis Pt was supposed to start home oral chemo two days ago on Saturday Follow up outpatient with oncology for new initiation date Liver cirrhosis Continue furosemide, spironolactone, rifaximin Will hold home lactulose for now HTN Continue carvedilol Full Code Attending:?Dr. Mota DVT Prophylaxis: Lovenox Pt will require a hospitalization of at least two nights for treatment and further evaluation of acute hepatic encephalopathy in the setting of liver cirrhosis and cholangiocarcinoma with hepatic metastasis. Given patient's history of medication noncompliance and current encephalopathy, patient will require hospitalization for administration of lactulose and close monitoring of mentation and labs. Quality Stroke Does the patient have a stroke diagnosis?: No VTE Prior VTE?: No VTE Risk Level:: Medical - moderate - high VTE Device Contraindication: Treatment Not Indicated VTE Drug Contraindication: N/A - Med Ordered
--- NOTE | 2023-07-26 12:58 | PHA.MEDREC ---
Pharmacy Consult ? Medication Reconciliation Pharmacy has completed the medication reconciliation. Confirmed patients medications through claim history, and (Jaimie). Patient was prescribed Nexavar (Sorafenib) 07/22/2023 but reports that he has not started it yet.
[2023-07-26 13:13] LABS: Appearance Urine Clear; Color Urine Yellow; Glucose Urine UA Negative (Negative); Leukocyte Esterase Urine Negative (Negative); Nitrite Urine Negative (Negative); Urine Blood Negative (Negative); Urine Ketones Negative (Negative); Urine Protein Negative (Neg-Trace)
--- NOTE | 2023-07-26 14:25 | PC.NURSE ---
Pt OOB, high fall risk, not following commands. Sitter at bedside for safety.
[2023-07-26 14:27] VITALS: BP 155/78; PULSE 78; RESP 17; O2SAT 97
[2023-07-26] MEDS: Enoxaparin Sodium 40 MG/0.4 ML SYRINGE SUBCUT (15:37)
[2023-07-26] MEDS: Lactulose 20 GM/30 ML SOLUTION 30 GM PO ×2 (15:38→20:25)
--- NOTE | 2023-07-26 16:00 | PC.NURSE ---
Pt enters my care- red socks applied. daughter at bedside- pt is very implusive and hard to redirect.pt very unsteady on his feet x2 assist to use the urinal- Pt able to swallow liquids but unable to hold the cup due to his shakiness
[2023-07-26 17:31] VITALS: BP 128/73; PULSE 82; RESP 18; TEMP 36.5; O2SAT 98
--- NOTE | 2023-07-26 18:35 | PC.NURSE ---
assumed patient care @ 1835, pt alert to self and place only, minimally verbal, daughter at bedside says he has not been talking much today but can speak dutch and greek at baseline. VSS besides elevated BP of 176/92, lung field diminished throughout
[2023-07-26 18:36] VITALS: BP 176/92; PULSE 77; RESP 18; TEMP 36.2; O2SAT 95
[2023-07-26 19:36] VITALS: BP 141/85; PULSE 75; RESP 14; TEMP 36.4; O2SAT 98
[2023-07-26] MEDS: rifAXIMin 550 MG TABLET PO (20:25)
[2023-07-26] MEDS: carvediloL 6.25 MG TABLET PO (20:25)
[2023-07-26] MEDS: 0.9 % Sodium Chloride Flush 3 ML SYRINGE IVFLUSH (20:25)
[2023-07-26] MEDS: timoloL maleate 0.5 % Oph Sol 5 ML DRBTL 1 DROP EYE-BOTH (22:03)
[2023-07-26] MEDS: Latanoprost 0.005 % Ophth Sol 2.5 ML DROPS 1 DROP EYE-BOTH (22:03)
[2023-07-26 22:12] LABS: Glucose, Whole Blood 169 mg/dL (60-115)
[2023-07-26] MEDS: Insulin Lispro 100 UNIT/ML 3 ML VIAL SUBCUT (22:15)
--- NOTE | 2023-07-26 22:16 | PC.NURSE ---
Patients daughter states patient is diabetic and gets blood sugar checked twice a day at home. POC ordered, finer stick reads 169, 2 units of humalog given per sliding scale. Patient had his sons visiting and while sitting in a recliner ate whole chicken salad sandwich and drank 2 cans of regular prerna porter. Now is resting in bed, safety in place.
[2023-07-27 03:57] VITALS: BP 117/57; PULSE 73; RESP 18; TEMP 36.2; O2SAT 98
[2023-07-27 05:38] LABS: Ammonia 78 umol/L (13-55)
[2023-07-27 05:46] LABS: Anion Gap 13 (12-20); Blood Urea Nitrogen 18 mg/dL (9-16); Calcium 8.9 mg/dL (8.4-10.2); Carbon Dioxide 20 mmol/L (22-29); Chloride 108 mmol/L (96-108); Creatinine Clr Calc Pharmacy 43.7; Estimated Glomerular Filt Rate 51; Glucose Random 91 mg/dL (60-115); Potassium 4.1 mmol/L (3.3-5.1); Sodium 137 mmol/L (135-145)
[2023-07-27 06:56] VITALS: BP 142/82; PULSE 70; RESP 16; TEMP 35.5; O2SAT 99
[2023-07-27 07:14] LABS: Glucose, Whole Blood 93 mg/dL (60-115)
[2023-07-27] MEDS: 0.9 % Sodium Chloride Flush 3 ML SYRINGE IVFLUSH ×2 (07:42→15:09)
[2023-07-27] MEDS: timoloL maleate 0.5 % Oph Sol 5 ML DRBTL 1 DROP EYE-BOTH ×2 (07:45→20:45)
[2023-07-27] MEDS: Cyanocobalamin (Vitamin B-12) 1,000 MCG TABLET 1000 MCG PO (07:46)
[2023-07-27] MEDS: Thiamine HCL 100 MG TABLET PO (07:46)
[2023-07-27] MEDS: Multivitamin TABLET 1 TAB PO (07:46)
[2023-07-27] MEDS: rifAXIMin 550 MG TABLET PO ×2 (07:46→21:11)
[2023-07-27] MEDS: Spironolactone 25 MG TABLET 50 MG PO (07:46)
[2023-07-27] MEDS: carvediloL 6.25 MG TABLET PO ×2 (07:47→20:46)
[2023-07-27] MEDS: Furosemide 40 MG TABLET PO (07:47)
[2023-07-27] MEDS: Lactulose 20 GM/30 ML SOLUTION 30 GM PO ×3 (07:47→20:45)
--- NOTE | 2023-07-27 10:31 | HO.PM.IMPN ---
Subjective Subjective Date of Service: 07/27/23 Interval History: seen and evaluated more alert and interactive, having breakfast no significant bowel movement Ammonia still high Review of Systems Review of Systems: Yes all other systems are reviewed and are negative Physical Exam Vital Signs: Vital Signs: Last Vital Signs Temp 96 F L 07/27/23 06:56 Pulse 70 07/27/23 06:56 Resp 16 07/27/23 06:56 BP 142/82 H 07/27/23 06:56 Pulse Ox 99 07/27/23 06:56 O2 Del Method Room Air 07/27/23 06:56 BMI result Body Mass Index 35.9 Const: Other: Constitutional : Awake, interactive, not in distress Neck : Normal inspection, Supple Cardiovascular : RRR, no JVP, no lower extremity edema Respiratory : good bilateral air entry, no crackles, wheezes or rhonchi Gastrointestinal: soft, lax, Normal bowel sounds, Non tender Skin : Warm, Dry Neurological : Alert & oriented to time and place, No focal deficit Objective Data Active Medications Acetaminophen (Acetaminophen 325 Mg Tablet) 650 mg PO Q6H PRN PRN Reason: Pain, Mild (Pain Scale 1-3) Benzonatate (Benzonatate 100 Mg Capsule) 100 mg PO TID PRN PRN Reason: Cough Carvedilol (Carvedilol 6.25 Mg Tablet) 6.25 mg PO BID [facility]; Protocol Last Admin: 07/27/23 07:47 Dose: 6.25 mg Documented By: SUPRIYA Cyanocobalamin (Cyanocobalamin (Vitamin B-12) 1,000 Mcg Tablet) 1,000 mcg PO DAILY [facility] Last Admin: 07/27/23 07:46 Dose: 1,000 mcg Documented By: SUPRIYA Dextrose (Dextrose 50 % 25 Gm/50 Ml Syringe) 25 gm IVPUSH Q15M PRN; Protocol PRN Reason: per Hypoglycemia Standing Ord. Docusate Sodium (Docusate Sodium 100 Mg Capsule) 100 mg PO DAILY PRN PRN Reason: Constipation Enoxaparin Sodium (Enoxaparin Sodium 40 Mg/0.4 Ml Syringe) 40 mg SUBCUT Q24H [facility] Last Admin: 07/26/23 15:37 Dose: 40 mg Documented By: KENNY Furosemide (Furosemide 40 Mg Tablet) 40 mg PO DAILY [facility]; Protocol Last Admin: 07/27/23 07:47 Dose: 40 mg Documented By: SUPRIYA Gabapentin (Gabapentin 100 Mg Capsule) 100 mg PO BEDTIME PRN PRN Reason: Pain, Moderate(Pain Scale 4-6) Glucose (Glucose Gel 15 Gm Gel..Gram.) 15 gm PO Q15M PRN; Protocol PRN Reason: per Hypoglycemia Standing Ord. Hydroxyzine HCl (Hydroxyzine Hcl 25 Mg Tablet) 25 mg PO DAILY PRN PRN Reason: itch Insulin Human Lispro (Insulin Lispro 100 Unit/Ml 3 Ml Vial) 0 unit SUBCUT QIDACHS [facility]; Protocol Last Admin: 07/27/23 07:29 Dose: Not Given Documented By: SUPRIYA Non-Admin Reason: No Insulin Coverage Lactulose (Lactulose 20 Gm/30 Ml Solution) 30 gm PO TID [facility] Last Admin: 07/27/23 07:47 Dose: 30 gm Documented By: SUPRIYA Latanoprost (Latanoprost 0.005 % Ophth Anne 2.5 Ml Drops) 1 drop EYE-BOTH BEDTIME [facility] Last Admin: 07/26/23 22:03 Dose: 1 drop Documented By: JACKI Melatonin (Melatonin 3 Mg Tablet) 6 mg PO BEDTIME PRN PRN Reason: Insomnia Multivitamins/Vitamin C (Multivitamin Tablet) 1 tab PO DAILY [facility] Last Admin: 07/27/23 07:46 Dose: 1 tab Documented By: SUPRIYA Omeprazole (Omeprazole 20 Mg Capsule.Dr) 20 mg PO DAILY PRN PRN Reason: Gastric Reflux Ondansetron HCl (Ondansetron Hcl 4 Mg/2 Ml Vial) 4 mg IVPUSH Q8H PRN PRN Reason: Nausea and Vomiting Oxycodone HCl (Oxycodone Hcl Immed Release 5 Mg Tablet) 5 mg PO Q6H PRN PRN Reason: Pain, Moderate(Pain Scale 4-6) Rifaximin (Rifaximin 550 Mg Tablet) 550 mg PO BID [facility] Last Admin: 07/27/23 07:46 Dose: 550 mg Documented By: SUPRIYA Sodium Chloride (0.9 % Sodium Chloride Flush 3 Ml Syringe) [address] [facility] Last Admin: 07/27/23 07:42 Dose: 3 ml Documented By: SUPRIYA Spironolactone (Spironolactone 25 Mg Tablet) 50 mg PO DAILY [facility]; Protocol Last Admin: 07/27/23 07:46 Dose: 50 mg Documented By: SUPRIYA Thiamine HCl (Thiamine Hcl 100 Mg Tablet) 100 mg PO DAILY [facility] Last Admin: 07/27/23 07:46 Dose: 100 mg Documented By: SUPRIYA Timolol Maleate (Timolol Maleate 0.5 % Oph Anne 5 Ml Drbtl) 1 drop EYE-BOTH BID [facility] Last Admin: 07/27/23 07:45 Dose: 1 drop Documented By: SUPRIYA Labs 07/26/23 09:52 07/27/23 05:18 Labs: Laboratory Results - last 24 hr 07/26/23 07/26/23 07/26/23 09:52 13:02 22:08 Anion Gap 16 Estim Creat Clear Calc 41.6 Estimated GFR 48 POC Glucose 169 H Random Glucose 120 H Calcium 9.1 D Magnesium 1.9 Total Bilirubin 2.6 H Direct Bilirubin 1.1 H AST 80 H ALT 41 H Alkaline Phosphatase 219 H Ammonia 92 H C-Reactive Protein 1.41 H B-Natriuretic Peptide 114 H Total Protein 7.8 Albumin 2.9 L Lipase 41 Procalcitonin 0.13 TSH 2.18 Urine Color Yellow Urine Appearance Clear Urine pH 7.0 Ur Specific [place] 1.010 Urine Protein Negative Urine Glucose (UA) Negative Urine Ketones Negative Urine Blood Negative Urine Nitrite Negative Ur Leukocyte Esterase Negative 07/27/23 07/27/23 05:18 07:11 Anion Gap 13 Estim Creat Clear Calc 43.7 Estimated GFR 51 POC Glucose 93 Random Glucose 91 Calcium 8.9 Magnesium Total Bilirubin Direct Bilirubin AST ALT Alkaline Phosphatase Ammonia 78 H C-Reactive Protein B-Natriuretic Peptide Total Protein Albumin Lipase Procalcitonin TSH Urine Color Urine Appearance Urine pH Ur Specific [place] Urine Protein Urine Glucose (UA) Urine Ketones Urine Blood Urine Nitrite Ur Leukocyte Esterase Assessment and Plan (1) Acute hepatic encephalopathy: Status: Acute (2) Cirrhosis: Status: Acute Plan Pt is a 77-year-old male with a PMH significant for?cholangiocarcinoma with hepatic metastasis not yet on oral chemo through [facility], liver cirrhosis, CAD s/p PCI, hx of ischemic CVA, and HTN who presents to the ED with?altered mental status. Pt will be admitted to the hospital for treatment further evaluation of acute hepatic encephalopathy in the setting of cholangiocarcinoma with hepatic metastasis. Hepatic encephalopathy in the setting of liver cirrhosis secondary to medication noncompliance Improved mentation Ammonia lower to 78 scheduled lactulose Continue home furosemide, spironolactone, and rifaximin Monitor mentation Cholangiocarcinoma with hepatic metastasis Pt was supposed to start home oral chemo two days ago on Saturday Follow up outpatient with oncology for new initiation date Liver cirrhosis Continue furosemide, spironolactone, rifaximin Will hold home lactulose for now HTN Continue carvedilol Full Code DVT Prophylaxis: Lovenox Pt will require a hospitalization overnight for treatment and further evaluation of acute hepatic encephalopathy in the setting of liver cirrhosis and cholangiocarcinoma with hepatic metastasis. patient will require hospitalization for administration of lactulose and close monitoring of mentation and labs. Quality Stroke Does the patient have a stroke diagnosis?: No VTE Prior VTE?: No VTE Risk Level:: Medical - moderate - high VTE Device Contraindication: Treatment Not Indicated VTE Drug Contraindication: N/A - Med Ordered
[2023-07-27 11:08] LABS: Glucose, Whole Blood 206 mg/dL (60-115)
[2023-07-27] MEDS: Insulin Lispro 100 UNIT/ML 3 ML VIAL SUBCUT ×3 (12:08→20:44)
--- NOTE | 2023-07-27 14:38 | MHC.CM.PN ---
Addendum entered by Vida Meneses 07/28/23 10:46: [facility] UNABLE TO ACCEPT REFERRAL REFERRAL MADE TO [facility] HOWEVER THEY TYPICALLY DO NOT MONITOR REFERRALS ON SATURDAY SO WILL NOT REVIEW BEFORE TOMORROW PT WILL DC HOME TODAY WITH REFERRAL TO [facility] Addendum entered by Vida Meneses 07/28/23 10:31: CM MET WITH PTS AT BEDSIDE SHE REPORTS THE PT DID NOT HAVE A VNA, HE HAS A RN CM FROM [facility] WHO CHECKS IN Q 3 MONTHS SHE SAYS HE HAS BEEN ASSESSED FOR HOME SERVICES BUT THEY SAID THEY WOULD HAVE TO PAY $45/HR FOR A GATE WATCHMAN THEY ARE INTERESTED IN A [place]NA AT [place] INTERMEDIATE MESSAGE RELAYED TO MD PTS REPORTS THEY HAVE BEEN WITH [facility] IN THE PAST AND THAT WOULD BE THERE PREFERRED AGENCY REFERRAL MADE Original Note: PT REPORTS HE LIVES AT HOME WITH HIS AND IS INDEPENDENT WITH CARE HE SAYS HE HAS A VNA BUT DOES NOT KNOW THE AGENCY HE SAYS HIS WILL BE IN TOMORROW AND HAS THE INFO HE SAYS HE HAS A WALKER BUT DOES NOT USE IT HCP ON FILE PCP: MATILDE GALVAN IMM DELIVERED DCP: [facility]
[2023-07-27] MEDS: Enoxaparin Sodium 40 MG/0.4 ML SYRINGE SUBCUT (15:09)
[2023-07-27 15:10] VITALS: BP 101/55; PULSE 77; RESP 18; TEMP 36.1; O2SAT 96
[2023-07-27 16:17] LABS: Glucose, Whole Blood 155 mg/dL (60-115)
[2023-07-27 19:19] VITALS: BP 130/60; PULSE 83; RESP 16; TEMP 37.1; O2SAT 98
[2023-07-27 20:21] LABS: Glucose, Whole Blood 163 mg/dL (60-115)
[2023-07-27] MEDS: Latanoprost 0.005 % Ophth Sol 2.5 ML DROPS 1 DROP EYE-BOTH (20:45)
[2023-07-28] MEDS: 0.9 % Sodium Chloride Flush 3 ML SYRINGE IVFLUSH ×2 (00:24→08:42)
--- NOTE | 2023-07-28 00:55 | PC.NURSE ---
Alert, oriented to person and place. Makes needs met, cooperative, patient states concern over tremor.
[2023-07-28 03:18] VITALS: BP 130/74; PULSE 79; RESP 16; TEMP 36.6; O2SAT 98
[2023-07-28 06:29] LABS: Anion Gap 14 (12-20); Blood Urea Nitrogen 23 mg/dL (9-16); Calcium 8.9 mg/dL (8.4-10.2); Carbon Dioxide 21 mmol/L (22-29); Chloride 107 mmol/L (96-108); Creatinine Clr Calc Pharmacy 36.4; Estimated Glomerular Filt Rate 41; Glucose Random 118 mg/dL (60-115); Potassium 4.5 mmol/L (3.3-5.1); Sodium 137 mmol/L (135-145)
[2023-07-28 06:58] VITALS: BP 131/71; PULSE 80; RESP 17; TEMP 36.6; O2SAT 97
[2023-07-28 07:13] LABS: Glucose, Whole Blood 128 mg/dL (60-115)
[2023-07-28] MEDS: rifAXIMin 550 MG TABLET PO (08:42)
[2023-07-28] MEDS: Lactulose 20 GM/30 ML SOLUTION 30 GM PO (08:42)
[2023-07-28] MEDS: Spironolactone 25 MG TABLET 50 MG PO (08:42)
[2023-07-28] MEDS: Multivitamin TABLET 1 TAB PO (08:42)
[2023-07-28] MEDS: carvediloL 6.25 MG TABLET PO (08:42)
[2023-07-28] MEDS: Thiamine HCL 100 MG TABLET PO (08:42)
[2023-07-28] MEDS: Cyanocobalamin (Vitamin B-12) 1,000 MCG TABLET 1000 MCG PO (08:42)
[2023-07-28] MEDS: Enoxaparin Sodium 40 MG/0.4 ML SYRINGE 30 MG SUBCUT (08:43)
[2023-07-28] MEDS: timoloL maleate 0.5 % Oph Sol 5 ML DRBTL 1 DROP EYE-BOTH (08:53)
--- NOTE | 2023-07-28 09:44 | PM.DS ---
DS: Providers Provider Date of Service: 07/28/23 Date of admission: 07/26/23 13:58 Primary care physician: Bianca Ghosh NP DS: Diagnosis Discharge Diagnosis (1) Acute hepatic encephalopathy: Status: Acute (2) Cirrhosis: Status: Acute DS: Summary Hospital Course Hospital Course: Admission note HPI Pt is a 77-year-old male with a PMH significant for?cholangiocarcinoma with hepatic metastasis not yet on oral chemo through [facility], liver cirrhosis, CAD s/p PCI, hx of ischemic CVA, and HTN who presents to the ED with?altered mental status. Pt is somnolent but arousable, the currently nonverbal at time of interview and exam. Family is at bedside who helps supply HPI. Patient's states that patient has been ?out of it? since yesterday morning. At times was speaking nonsensically yesterday and had difficulty walking or holding onto objects due to shaking. Symptoms worsened last night and then into the morning when patient became nonverbal and began using the corner of his bedroom as a bathroom. admits that she has not been administering pt's lactulose correctly, only giving it once or twice a day. Discussed with her the importance of adhering to a proper dosing schedule. In the ED pt was slightly hypertensive up to 151/73, vitals otherwise WNL. Labs were significant for creatinine 1.43, bilirubin 2.6, AST 80, ALT 41, alk-phos 219, ammonia 92. BNP only mildly elevated at 114. UA pending. Patient tested negative for COVID. CXR showed no acute abnormality. CT?of head showed no acute intracranial process. Pt was treated with lactulose 20 g p.o.. Pt also became agitated and given Zyprexa 5 mg IM. Pt will be admitted to the hospital for treatment further evaluation of acute hepatic encephalopathy in the setting of cholangiocarcinoma with hepatic metastasis. Hospital course # Hepatic encephalopathy in the setting of liver cirrhosis secondary to medication noncompliance He was started on PO and IL Lactulose with trending down Ammonia level and Improved mentation. Advised to stick to the scheduled Lactulose doses at home and take extra for not passing bowel movement in 2 days. Continue home furosemide, spironolactone, and rifaximin on discharge. # Cholangiocarcinoma with hepatic metastasis Patient was supposed to start home oral chemo two days prior to admission. He will follow up outpatient with oncology for new initiation date. Take your Lactulose 3 times daily with goal of at least 1 bowel movement daily. Take extra Lactulose if you go 2 days with no bowel movements Time Attestation Discharge coordination time: Greater than 30 minutes Quality: Safe Use of Opioids Does Pt have an Active Cancer Diagnosis on the Problem List?: Yes Opioid Measure Date for [facility] Report: 06/28/23 Opioid Measure Time for [facility] Report: 10:46 Quality: Stroke Does the patient have a stroke diagnosis?: No Physical Exam Vital Signs: Vital Signs: Last Vital Signs Temp 98 F 07/28/23 06:58 Pulse 80 07/28/23 06:58 Resp 17 07/28/23 06:58 BP 131/71 07/28/23 06:58 Pulse Ox 97 07/28/23 06:58 O2 Del Method Room Air 07/28/23 06:58 BMI result Body Mass Index 35.9 Const: Other: Constitutional : Awake, interactive, not in distress Neck : Normal inspection, Supple Cardiovascular : RRR, no JVP, no lower extremity edema Respiratory : good bilateral air entry, no crackles, wheezes or rhonchi Gastrointestinal: soft, lax, Normal bowel sounds, Non tender Skin : Warm, Dry Neurological : Alert & oriented to time and place, No focal deficit DS: Data Data Completed and Pending Completed studies during hospitalization [Text1]: Procedures Drainage of Peritoneal Cavity, Percutaneous Approach (01/10/23) Excision of Stomach, Pylorus, Via Natural or Artificial Opening Endoscopic, Diagnostic (10/27/22) Labs on day of discharge: Laboratory Results - last 24 hr 07/27/23 07/27/23 07/27/23 11:03 16:12 19:24 Hold Purple Top Sodium Potassium Chloride Carbon Dioxide Anion Gap BUN Creatinine Estim Creat Clear Calc Estimated GFR POC Glucose 206 H 155 H 163 H Random Glucose Calcium 07/28/23 07/28/23 05:13 07:08 Hold Purple Top SEE NOTE Sodium 137 Potassium 4.5 Chloride 107 Carbon Dioxide 21 L Anion Gap 14 BUN 23 H Creatinine 1.63 H Estim Creat Clear Calc 36.4 Estimated GFR 41 POC Glucose 128 H Random Glucose 118 H Calcium 8.9 Preliminary micro results at discharge 07/26/23 10:44 Blood Culture - Preliminary Blood - Venous No growth after 24 hours. 07/26/23 10:24 Blood Culture - Preliminary Blood - Venous No growth after 24 hours. Imaging Chest x-ray: Radiologist's impression: ITS Impressions Chest X-Ray 07/26/23 10:10 IMPRESSION: No acute abnormality. Head CT 07/26/23 11:05 IMPRESSION: No acute intracranial process seen. Discharge Plan Discharge Anticipated Discharge Date/Time: 07/28/23 08:24 Patient Disposition: Home Health Service Discharge Diagnosis: Hepatic encephalopathy Referrals: Bianca Ghosh NP [Primary Care Provider] - 1 Week Discharge Medications: Continued Xifaxan 550 mg tablet 550 mg PO BID 30 Days Qty: 60 3RF furosemide 40 mg tablet 40 mg PO DAILY carvedilol 6.25 mg tablet 6.25 mg PO BID cyanocobalamin (vitamin B-12) [Vitamin B-12] 1,000 mcg tablet 1,000 mcg PO DAILY thiamine HCl (vitamin B1) 100 mg tablet 100 mg PO DAILY omeprazole 10 mg capsule,delayed release(DR/EC) 10 mg PO DAILY PRN (Reason: Gastric Reflux) gabapentin 100 mg capsule 100 mg PO BEDTIME PRN (Reason: Pain) spironolactone 50 mg tablet 50 mg PO DAILY magnesium gluconate [Mag-G] 27 mg magnesium (500 mg) tablet 27 mg PO DAILY multivitamin with folic acid [Daily-Mel (with folic acid)] 400 mcg tablet 1 tab PO DAILY acetaminophen 500 mg tablet 500 mg PO Q8H PRN (Reason: mild pain) hydroxyzine HCl 25 mg tablet 25 mg PO DAILY PRN (Reason: itch) lactulose 20 gram/30 mL solution 30 ml PO TID Qty: 1200 0RF prochlorperazine maleate 10 mg tablet 10 mg PO TID PRN (Reason: nausea/vomiting) oxycodone 5 mg tablet 5 mg PO Q6H PRN (Reason: Pain) diclofenac sodium 1 % gel 1 g topical QID timolol maleate 0.5 % drops 1 drp ophthalmic (eye) BID latanoprost 0.005 % drops 1 drp ophthalmic (eye) BEDTIME Discharge Orders: Discharge Order (Routine); Ordered 07/28/23 Ordered By: Wendi Mota Diet: Advance to usual diet Activity on Discharge: As tolerated Stand Alone Forms: Patient Portal Discharge page Care Plan Goals: Read below Health Concerns: Read below Plan of Treatment: Read below Assessment: Take your Lactulose 3 times daily with goal of at least 1 bowel movement daily. Take extra Lactulose if you go 2 days with no bowel movements High protein diet Patient Instructions: High Protein Diet (GEN), High Protein / High Calorie Diet (DC)
--- NOTE | 2023-07-28 10:49 | P.F2F_ITS ---
Service Date Service Date: 07/28/23 Encounter Date of encounter: 07/28/23 Reasons for Services Signs and symptoms assessed: recurrent hepatic encephalopathy Reason for senior living: medication management and teach disease management Reason for physical therapy: home safety and mobility Homebound: Leaving the home is medically contraindicated at this time without the asist of a device and/or another person due th the listed conditions above and below. Reason homebound: unsteady gait / fall risk Certification: Based on the above findings, I certify that this patient is confined to the home and needs intermittent senior living care, physical therapy and/or speech therapy, or continues to need occupational therapy. The patient is under my care, and I have initiated the establishment of the plan of care. The patient will be followed by a physician who will periodically review the plan of care. Time Spent With Patient Time: Total time managing care of this patient today ____ minutes.
[2023-07-28 11:06] LABS: Glucose, Whole Blood 177 mg/dL (60-115)
== END 2023-07-28 11:46 | disposition home health service (06) | DRG 442 ==
LOC: HO.ED 11:39 → HO.EDOVER 14:10 → HO.S3 15:56
PROVIDERS: Admitting Provider Student in an Organized Health Care Education/Training Program; Emergency Provider Emergency Medicine; PCP Nurse Practitioner Family; Visit Provider Student in an Organized Health Care Education/Training Program
DX: K76.82 Hepatic encephalopathy (principal); C22.1 Intrahepatic bile duct carcinoma; C78.7 Secondary malignant neoplasm of liver and intrahepatic bile duct; K75.81 Nonalcoholic steatohepatitis (NASH); T47.3X6A Underdosing of saline and osmotic laxatives, initial encounter; K74.69 Other cirrhosis of liver; I25.10 Atherosclerotic heart disease of native coronary artery without angina pectoris; I10 Essential (primary) hypertension; Z20.822 Contact with and (suspected) exposure to COVID-19; Z95.5 Presence of coronary angioplasty implant and graft; Z86.73 Personal history of transient ischemic attack (TIA), and cerebral infarction without residual deficits; Z87.891 Personal history of nicotine dependence; Z79.899 Other long term (current) drug therapy
CPT/HCPCS: 36415; 70450; 71045; 80048; 80076; 81003; 82140; 82803; 82947; 83605; 83690; 83735; 83880; 84145; 84443; 84484; 85025; 85610; 86140; 87040; 87635; 99285; J1650; J2359

== ENCOUNTER → 2023-07-26 13:58 | Outpatient (BNV) | payer MEDICARE, SELFPAY | PROVIDERS: Admitting Provider Student in an Organized Health Care Education/Training Program; Emergency Provider Emergency Medicine; PCP Nurse Practitioner Family; Visit Provider Student in an Organized Health Care Education/Training Program | DX: K74.60 Unspecified cirrhosis of liver (principal); K76.82 Hepatic encephalopathy; I25.10 Atherosclerotic heart disease of native coronary artery without angina pectoris; Z86.73 Personal history of transient ischemic attack (TIA), and cerebral infarction without residual deficits | CPT/HCPCS: 99223; 99232; 99238; G0180 ==

== ENCOUNTER 2023-09-05 08:58 | Outpatient (AMB) | payer MEDICARE, MEDICAID, SELFPAY ==
[2023-09-05 09:02] VITALS: BP 145/76; PULSE 81; BMI 26.9
--- NOTE | 2023-09-05 09:02 | MHC.OFFVIS ---
Vital Signs 09/05/23 09:02 Height 5 ft 9 in Weight 182 lb BMI 26.9 BP 145/76 H Blood Pressure Location Lt brachial Position Sitting Pulse 81 Intake Visit Reasons: Follow up for [facility] Intake Note: Patient follow up for H pylori med Patient cc: acid reflex on and off abdominal discomfort. Rough Rounder Required: No Accompanied by: Family/Other Allergies No Known Allergies [No Known Allergies*] Allergy (Verified 11/16/23 21:58) Medication List - Last Reconciled 09/05/23 by Cole Ramesh MD acetaminophen 500 mg PO Q8H PRN carvedilol 6.25 mg PO BID cyanocobalamin (vitamin B-12) (Vitamin B-12) 1,000 mcg PO DAILY diclofenac sodium 1% 1 g topical QID furosemide 40 mg PO DAILY gabapentin 100 mg PO BEDTIME PRN hydroxyzine HCl 25 mg PO DAILY PRN lactulose 30 mL PO TID latanoprost 0.005% 1 drp ophthalmic (eye) BEDTIME magnesium gluconate (Mag-G) 27 mg PO DAILY multivitamin with folic acid 400 mcg (Daily-Mel (with folic acid)) 1 tab PO DAILY omeprazole 10 mg PO DAILY PRN oxycodone 5 mg PO Q6H PRN prochlorperazine maleate 10 mg PO TID PRN sorafenib (Nexavar) 400 mg PO DAILY spironolactone 50 mg PO DAILY thiamine HCl (vitamin B1) 100 mg PO DAILY timolol maleate 0.5% 1 drp ophthalmic (eye) BID HPI HPI Follow up for [facility]: Details: GI clinic visit for this 77-year-old [place]er-speaking male with 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 Chemotherapy infusions are every 2 weeks and next appt is on 03/01/23 for his next chemotherapy infusion.? Anticipates he will finish chemo end of February FU with Dr Bustillos on 03/08/[address] scan on 02/19/23 Had a blood transfusion (1 unit) on February 04 for anemia Pt admitted on 01/09/23 with complaints of generalized anasarca and left groin pain related to tense ascites.? Symptoms have improved after therapeutic paracentesis LABS IN [facility] : Labs reviewed from [facility] IMAGING STUDIES: 01/09/[address] scan showed: Cirrhotic liver with varices and moderate volume ascites. *? Liver has heterogeneous attenuation. Multiple hypodense foci are present within the liver; these are suspicious for metastatic disease. Also, there appears to be soft tissue attenuation involving the common hepatic duct. Cholangiocarcinoma is possible. The hypodensity in the central liver involving region of right hepatic duct convergence with left hepatic duct could represent infiltrative tumor. There appears to be a chronically enlarged lymph node in the portacaval region. ENDOSCOPIC STUDIES: 10/27/22 EGD SHOWED: ESOPHAGUS: Grade 2 esophageal varices without stigmata of recent bleeding STOMACH: Multiple chronic appearing antral erosions - likely related to NSAID use. A large 3 cms varix with in the gastric fundus. DUODENUM: A few 4-5 mm erosions in the duodenal bulb No blood or active bleeding noted in the UGI tract during EGD. UGI bleeding likely from gastric and duodenal erosions versus gastric varix. Plan: Continue IV PPI and octreotide infusion. Transfer to tertiary care center for evaluation of gastric varix with doppler US and treatment with cyanoacrylate glue. TODAY'S VISIT: Hospitalized at [facility] 07/26 to 07/28/23 with hepatic encephalopathy Has been doing better since he was discharged Taking Lactulose 15 ml three times a day and has been having regular BMs Unable to take Rifaxamin since its not covered. Lost 12 lbs since last visit. Started on medication on 07/29/23 Saw Oncology WELD FITTER at [facility] on 08/29/23 and has a FU visit on 09/27/[address] scan on 09/24/23 PAST VISITS: CC: Patient reports occasional heartburn and choking with pills. Denies other GI symptoms today. Pt is accompanied by his who provided most of the history Doing so so. Eating pretty good. Pt notes some dysphagia to pills and denies dysphagia with food intake denies confusion or difficulty with memory. Patient denies symptoms of heartburn, nausea, vomiting. Pt has lost weight. Abdominal distension has improved and has not needed any paracentesis recently Leg swelling has improved. Denies recent change in bowel habits, constipation, diarrhea, black stools or rectal bleeding. PAST GI HISTORY BY REVIEW OF MEDICAL RECORDS: Pt has had elevated LFTs for the past 2 years and his PCP prescribed Pioglitazone for DM and elevated LFTs. Per [t's family - pt hardly took the medication Pt had a colonoscopy 2-[address] Llanes (GI in [place]) and polyps were removed. Per family patient's PCP informed them that patient's liver function was altered but they are unaware if he has cirrhosis.? Patient is noncompliant with medications.? Family denied significant alcohol use or a history of hepatitis.? Pt was hospitalized at [facility] in Oct, 2022 with hepatic encephalopathy Labs during pevious admission showed elevated creatinine of 2.2.? Hemoglobin was 10 (Baseline hemoglobin from 2019 was 14, 09/17/22 H & H was 11.5 & 35.9) Pt was started on IV PPI and Octreotide.? Patient admited to using excessive amount of Advil and denied alcohol abuse.? Aspirin and Tylenol was negative.? Hepatitis profile was negative for Acute Hep A, Hep B and C 10/2022 EGD SHOWED:ESOPHAGUS: Grade 2 esophageal varices without stigmata of recent bleeding STOMACH: Multiple chronic appearing antral erosions - likely related to NSAID use. A large 3 cms varix with in the gastric fundus. DUODENUM:? A few 4-5 mm erosions in the duodenal bulb No blood or active bleeding noted in the UGI tract during EGD. UGI bleeding likely from gastric and duodenal erosions versus gastric varix. Plan: Continue IV PPI and octreotide infusion. Transfer to tertiary care center for evaluation of gastric varix with doppler US and treatment with cyanoacrylate glue [facility] Medical History Cirrhosis Cholangiocarcinoma BOBO (nonalcoholic steatohepatitis) Bilateral inguinal hernia Gastric varix Type 2 diabetes mellitus with unspecified complications NSVT (nonsustained ventricular tachycardia) Essential hypertension Ascending aorta dilatation Ischemic stroke Atherosclerotic cardiovascular disease Surgical History H/O colonoscopy History of esophagogastroduodenoscopy (EGD) History of cardiac catheterization (~04/2015) Family History Father No problems noted. Mother No problems noted. Social History Household Members: Spouse Housing: House Do you presently have visiting nurse or other home services: No Unable to assess alcohol history related to: Unable to respond Alcohol intake: former Comment: [facility] Patient Tobacco Use Status: Former Tobacco user Cigarettes Per Day: 10 Smoked in Last 30 Days: No Second Hand Smoke Exposure: No Use of substances other than those prescribed or required for medical reasons: No Advance Directives: Yes Advance Directives on File: Yes Advance Directives Date on File: 01/10/23 Do you have a plan to hurt others: No Plan service: No Review of Systems Const All systems reviewed & are unremarkable except as noted in HPI and below Physical Exam Vital Signs: Last Vital Signs Pulse 81 09/05/23 09:02 BP 145/76 H 09/05/23 09:02 BMI result Body Mass Index 26.9 Const General: healthy appearing and no acute distress Nutritional Appearance: overweight Orientation/consciousness: patient oriented x3 Limitations: language barrier HEENT Head: Yes normal to inspection Ears: hearing grossly normal bilaterally Eyes Sclerae: sclerae normal Pupils: Equal, round and reactive pupils present Neck Neck: Yes normal visual inspection Chest Chest palpation & inspection: normal inspection of the chest Resp Effort & Inspection: normal respiratory effort Auscultation: clear to auscultation bilaterally Cardio Palpation: normal PMI Rate: regular rate Rhythm: regular rhythm Heart sounds: S1 normal heart sound present, S2 normal heart sound present and no murmurs GI Palpation (GI): Soft to palpation, nontender and No hepatosplenomegaly present Auscultation: normal bowel sounds Rectal Exam - Male: Yes deferred Skin General skin exam: no rashes or lesions noted Neuro General: patient oriented x3, gait normal and moves all extremities Cranial nerves: Yes Equal, round and reactive pupils present Psych Appearance: grossly normal Mental Status: mental status grossly normal Assessment & Plan Assessment & Plan (1) Cirrhosis: Code(s): K74.60 - Unspecified cirrhosis of liver Category: Medical Plan GI clinic visit for this 77-year-old [place]er-speaking male with 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 MELD score is 14 He elected to be treated by Dr Bustillos (Oncologist at [facility]) and reported that he started chemotherapy. Patient is receiving palliative chemotherapy with Nivolumab (biweekly started on 12/12/2022) Chemotherapy infusions are every 2 weeks and next appt is on 03/01/23 for his next chemotherapy infusion.? Anticipates he will finish chemo end of February. AFP [place] [id number], bilirubin improved to 3.9 (Bilirubin was 13 at the time of diagnosis) PLAN: 1. Continue Rifaximin twice daily and lactulose once a day for hepatic encephalopathy (titrate to 2-3 soft BMs daily). 2. Continue Lasix and spironolactone for ascites - of note pt has not needed a therapeutic paracentesis since 01/10/23. Therapeutic paracenteses can be scheduled in case of refractory ascites. 3. Pt will continue FU with Dr Bustillos, oncologist at [facility] with labs every 2 weeks Records from [facility] were reviewed and scanned into patient's record. 09/05/23 Encephalopathy has improved since last hospitalization Taking Lactulose 15 ml three times a day and has been having regular BMs Unable to take Rifaxamin since its not covered. Lost 12 lbs since last visit. Saw Oncology WELD FITTER at [facility] on 08/29/23 and has a FU visit on 09/27/[address] scan on 09/24/23 FU in 4 months Coding Level of Care Code Est Pt Level 4 (81298) Diagnoses Cirrhosis K74.60 Time Spent (min) 21
== END 2023-09-05 09:41 | disposition home or self-care (01) ==
PROVIDERS: PCP Nurse Practitioner Family; Visit Provider Internal Medicine Gastroenterology
DX: K74.60 Unspecified cirrhosis of liver (principal)
CPT/HCPCS: 99499

== ENCOUNTER → 2023-09-05 08:58 | Outpatient (BNVA) | payer MEDICARE, SELFPAY | PROVIDERS: PCP Nurse Practitioner Family; Visit Provider Internal Medicine Gastroenterology ==

== ENCOUNTER → 2023-10-07 13:35 | Outpatient (REF) | payer MEDICARE, MEDICAID, SELFPAY ==
--- NOTE | 2023-10-07 13:38 | CA_ITS ---
Transthoracic Echocardiogram Patient (Last, First, Middle): Duane Coleman, Gender: Male Date of : 1945 Age: 77 Procedure Date: 10/07/2023 Procedure Type: Transthoracic Echocardiogram Location: OP Height: 175.26 cm Weight: 83.92 kg BSA: 2.00 m2 Heart Rate: bpm BP: 120 / 84 mmHg Livestock Trader: LESLY Referring MD: Rudy Balndon MD Symptoms: I77.810 - Thoracic aortic ectasia Study Quality: Adequate Conclusions: - 1. Normal LV ejection fraction of 55-60% with mild LVH with impaired relaxation filling pattern 2. Mildly dilated left atrium 3. Mild aortic regurgitation 4. [id number] dilatation of ascending aorta at 4.4 cm 5. No gross pericardial effusion Findings Left Ventricle Normal left ventricular size and systolic function. There is mildly increased left ventricular wall thickness. The visually estimated ejection fraction is between 55-60%. Spectral Doppler is indicative of an impaired relaxation filling pattern. E/E prime ratio is between 8 and 15 consistent with indeterminate filling pressures. Peak GLS is -15.8%, mildly reduced. Right Ventricle Normal right ventricular cavity size and systolic function. Atria The left atrium is mildly dilated. There is no evidence of interatrial shunt. The right atrium is normal in size. Aortic Valve Normal aortic valve structure and function. There is mild calcification of the aortic valve. There is no aortic valve stenosis. There is mild aortic valve regurgitation. Mitral Valve Normal mitral valve structure and function. There is trace mitral valve regurgitation. There is no mitral valve stenosis. Pulmonic Valve The pulmonic valve is likely normal. There is trace pulmonic valve regurgitation. Tricuspid Valve Normal tricuspid valve structure. There is trace tricuspid valve regurgitation. The right ventricular systolic pressure is normal. The right ventricular systolic pressure is 17 mmHg. Mildly elevated right atrial pressure. There is no evidence of pulmonary hypertension. Great Vessels The pulmonary artery was not well visualized. Venous The inferior vena cava is mildly dilated and collapses greater than 50% with inspiration. Pericardium/Pleural There is no evidence of pericardial effusion. Measurements 2D Linear Measurements IVSd: 1.32 0.6-0.9/0.6-1.0 cm LVIDd: 4.78 3.9-5.3/4.2-5.9 cm LVIDd Index: 2.39 2.4-3.2/2.2-3.1 cm/m2 LVIDs: 3.44 2.0-3.6 cm LVPWd: 1.25 0.7-1.1 cm LA Diam: 3.40 2.7-3.8/3.0-4.0 cm LAIDs Index: 1.70 1.5-2.3 cm/m2 LV Mass: 299.36 67-162/88-224 g LV Mass Index: 149.68 43-95/49-115 g/m2 LVOT Diam: 2.30 3.0+(-)1.3 cm 2D Systolic Function EF 4C: 59.90 >55% EF 2C: 56.20 >55% EF BiP: 58.30 >55% Mitral Valve MV Pk E: 0.49 MV PK A: 0.87 MV Decel Time: 173.00 E/A: 0.60 E'Lateral: 7.51 E'Medial: 4.03 E/E' Med: 12.20 E/E' Lat: 6.60 PHT: 51.00 MVA PHT: 4.31 Decel Drew: 2.85 Aortic Valve AoV Pk Wil: 1.74 AoV Mn Wil: 1.25 AoV VTI: 0.37 AoV Pk Grad: 12.00 Aov Mn Grad: 7.00 NORA Cont.VTI: 2.33 LVOT LVOT Pk Wil: 1.04 LVOT Mn Wil: 0.65 LVOT VTI: 0.21 LVOT Pk Grad: 4.00 LVOT Mn Grad: 2.00 LVOT Diam: 2.30 LVOT Area: 4.15 Diastolic Function MV Pk E: 0.49 MV Pk A: 0.87 E/A: 0.60 E'Medial: 4.03 E/E' Med: 12.20 E' Laterial: 7.51 E/E' Lat: 6.60 Right Ventricle TAPSE (mm): 23.80 TVS' Wil: 16.20 Tricuspid Valve TR Pk Wil: 1.47 TR Pk Grad: 9.00 RA Press: 8.00 RVSP: 17.00 Great Vessels Aorta Sinus of Valsalva: 3.43 2.0-3.[address] Ridge: 2.31 1.7-3.4 cm Ao Asc: 4.40 2.1-3.4 cm Updated in Other Vendor System with Status of Final Alec Casper MD electronically signed on 10/08/2023 12:11:14 PM with status of Final
== END ==
LOC: HO.CARD 13:35
PROVIDERS: PCP Nurse Practitioner Family; Visit Provider Internal Medicine
DX: I77.810 Thoracic aortic ectasia (principal)
CPT/HCPCS: 93306; 93356

== ENCOUNTER → 2023-10-07 13:38 | Outpatient (BNV) | payer MEDICARE, MEDICAID, SELFPAY | PROVIDERS: PCP Nurse Practitioner Family; Visit Provider Internal Medicine Cardiovascular Disease | DX: I35.1 Nonrheumatic aortic (valve) insufficiency (principal); R93.1 Abnormal findings on diagnostic imaging of heart and coronary circulation | CPT/HCPCS: 93306; 93356 ==

== ENCOUNTER 2023-10-09 16:38 | Emergency (ER) | payer MEDICARE, MEDICAID, SELFPAY | END 2023-10-09 18:30 | disposition left against medical advice (07) | LOC: HO.ED 18:29 | PROVIDERS: Emergency Provider Emergency Medicine | DX: M79.89 Other specified soft tissue disorders (principal); E11.9 Type 2 diabetes mellitus without complications ==

== ENCOUNTER 2023-10-30 13:26 | Outpatient (AMB) | payer MEDICARE, MEDICAID, SELFPAY ==
[2023-10-30 13:34] VITALS: BP 136/70; PULSE 68; BMI 27.0
--- NOTE | 2023-10-30 13:34 | A.OFFVIS_ITS ---
Vital Signs 10/30/23 13:34 Height 5 ft 9 in Weight 183 lb BMI 27.0 BP 136/70 Blood Pressure Location Lt brachial Position Sitting Pulse 68 Intake Visit Reasons: 6 months Intake Note: 6 month follow-up c/o fatigue Health And Safety Advisor: Health And Safety Advisor Present Accompanied by: Spouse Allergies No Known Allergies [No Known Allergies*] Allergy (Verified 09/05/23 09:03) Medication List - Last Reconciled 10/30/23 by Rudy Blandon MD acetaminophen 500 mg PO Q8H PRN carvedilol 6.25 mg PO BID cyanocobalamin (vitamin B-12) (Vitamin B-12) 1,000 mcg PO DAILY diclofenac sodium 1% 1 g topical QID furosemide 40 mg PO DAILY gabapentin 100 mg PO BEDTIME PRN hydroxyzine HCl 25 mg PO DAILY PRN lactulose 30 mL PO TID latanoprost 0.005% 1 drp ophthalmic (eye) BEDTIME magnesium gluconate (Mag-G) 27 mg PO DAILY multivitamin with folic acid 400 mcg (Daily-Mel (with folic acid)) 1 tab PO DAILY omeprazole 10 mg PO DAILY PRN oxycodone 5 mg PO Q6H PRN prochlorperazine maleate 10 mg PO TID PRN rifaximin 550 mg PO BID 90 days sorafenib (Nexavar) 400 mg PO DAILY spironolactone 50 mg PO DAILY thiamine HCl (vitamin B1) 100 mg PO DAILY timolol maleate 0.5% 1 drp ophthalmic (eye) BID HPI Comments Details: Duane returns for follow-up regarding coronary artery disease. In 2014, he had non ST elevation myocardial infarction requiring cardiac catheterization and stenting of his 1st marginal. From the cardiac standpoint, no specific complaints. No angina or shortness of breath or in fact anything cardiac sounding. Otherwise, he has also been diagnosed liver cancer and remains chemotherapy. Overall, looks frail. [facility] Medical History (Updated 09/05/23 @ 09:06 by Cole Ramesh MD) Cirrhosis Cholangiocarcinoma BOBO (nonalcoholic steatohepatitis) Bilateral inguinal hernia Gastric varix Type 2 diabetes mellitus with unspecified complications NSVT (nonsustained ventricular tachycardia) Essential hypertension Ascending aorta dilatation Ischemic stroke Atherosclerotic cardiovascular disease Surgical History H/O colonoscopy History of esophagogastroduodenoscopy (EGD) History of cardiac catheterization (~04/2015) Family History Father No problems noted. Mother No problems noted. Social History Household Members: Spouse Housing: House Do you presently have visiting nurse or other home services: No Unable to assess alcohol history related to: Unable to respond [place] [facility] [place] Tobacco Use Status: Former Tobacco user Quit Date: 15 years ago Cigarettes Per Day: 10 Second Hand Smoke Exposure: No Advance Directives Date on File: 01/10/23 service: No Review of Systems Const Denies chills, Denies fatigue, Denies fever(s), Denies frequent falls, Denies weakness, Denies weight gain and Denies weight loss ENT Denies dizziness Card Denies chest pain, Denies leg edema, Denies lightheadedness, Denies palpitations, Denies dyspnea, Denies dyspnea on exertion, Denies orthopnea and Denies other (loss of consciousness) Resp Denies cough, Denies dyspnea and Denies dyspnea on exertion GI Denies hematochezia and Denies change in stool character Musc Denies abnormal gait, Denies muscle weakness, Denies numbness, Denies radiating pain into limb and Denies tingling Neuro Denies abnormal gait, Denies dizziness, Denies frequent falls, Denies numbness, Denies tingling and Denies weakness Endo Denies fatigue and Denies palpitations Physical Exam Vital Signs: Last Vital Signs Pulse 68 10/30/23 13:34 BP 136/70 10/30/23 13:34 BMI result Body Mass Index 27.0 Const General: comfortable and no acute distress Orientation/consciousness: patient oriented x3 HEENT Other: Unremarkable Head: Yes normal to inspection Neck Neck: Yes normal visual inspection Chest Chest palpation & inspection: normal inspection of the chest Resp Auscultation: clear to auscultation bilaterally Cardio Palpation: normal PMI Heart sounds: S1 normal heart sound present, S2 normal heart sound present, no gallops, no murmurs and no rubs GI Palpation (GI): Soft to palpation Back/Spine/Pelvis Other: unremarkable Skin General skin exam: no rashes or lesions noted Neuro General: patient oriented x3 Extrem General: Yes normal to inspection Psych Mental Status: mental status grossly normal Assessment & Plan Assessment & Plan (1) Atherosclerotic cardiovascular disease: Code(s): I25.10 - Atherosclerotic heart disease of [place] coronary artery without angina pectoris Category: Medical Plan: Status post 1st marginal stenting from 2014. Cardiac catheterization then also showed 75% distal LAD disease and severe RPDA disease, but small caliber vessel. Clinically, no angina. Continue aspirin, beta-blockers. In the past, was on statins but after abnormal LFTs, it was apparently stopped. (2) Ischemic stroke: Code(s): I63.9 - Cerebral infarction, unspecified Category: Medical Plan: No clear deficits. Suspected intra cranial disease. CT of the neck 2018 with atheromatous plaque at the carotid bifurcations but no high-grade stenosis. Cardiac event monitoring in the past without any atrial fibrillation. (3) Ascending aorta dilatation: Code(s): I77.810 - Thoracic aortic ectasia Category: Medical Plan: In the most recent echocardiogram, ascending aortic size 4.4 cm. Prior to that, it was 4.3 cm. Can be followed on echocardiograms periodically. (4) Essential hypertension: Code(s): I10 - Essential (primary) hypertension Category: Medical Plan: Stable. No changes. (5) NSVT (nonsustained ventricular tachycardia): Code(s): I47.2 - Ventricular tachycardia Category: Medical Plan: Continue beta-blockers. (6) HCC (hepatocellular carcinoma): Code(s): C22.0 - Liver cell carcinoma Category: Medical Plan: Because of this new diagnosis, cardiac care will likely be conservative in the future. Plan Discussed with significant other. Coding Level of Care Code Est Pt Level 4 (84916) Diagnoses Atherosclerotic cardiovascular disease I25.10 Ischemic stroke I63.9 Ascending aorta dilatation I77.810 Essential hypertension I10 NSVT (nonsustained ventricular tachycardia) I47.2 HCC (hepatocellular carcinoma) C22.0
== END 2023-10-30 13:54 | disposition home or self-care (01) ==
PROVIDERS: Visit Provider Internal Medicine
DX: I25.10 Atherosclerotic heart disease of native coronary artery without angina pectoris (principal); I63.9 Cerebral infarction, unspecified; I77.810 Thoracic aortic ectasia; I10 Essential (primary) hypertension; I47.20 Ventricular tachycardia, unspecified; C22.0 Liver cell carcinoma
CPT/HCPCS: 99214

== ENCOUNTER → 2023-10-30 13:26 | Outpatient (BNVA) | payer MEDICARE, SELFPAY | PROVIDERS: PCP Family Medicine; Visit Provider Internal Medicine | DX: I25.10 Atherosclerotic heart disease of native coronary artery without angina pectoris (principal); I77.810 Thoracic aortic ectasia; I10 Essential (primary) hypertension; I47.20 Ventricular tachycardia, unspecified; C22.0 Liver cell carcinoma; I25.2 Old myocardial infarction | CPT/HCPCS: 99212 ==

== ENCOUNTER 2023-11-16 21:54 | Emergency (ER) | payer MEDICARE, SELFPAY ==
--- NOTE | ~2023-11-16 | CT_ITS ---
EXAMINATION: CT ABDOMEN AND PELVIS WITHOUT CONTRAST CLINICAL INFORMATION: Left flank pain. COMPARISON: 01/09/2023 and MRI dated 01/10/2023 TECHNIQUE: Multidetector volumetric imaging was performed from the superior aspect of the liver through the pubic symphysis. Sagittal and coronal reformatted images were obtained on the technologist's workstation. This CT examination was performed using dose optimization techniques as appropriate, variously including the following: *Automated exposure control *Adjustment of mA and/or kV according to patient size (this includes techniques or standardized protocols for targeted exams where dose is matched to indication/reason for exam; i.e. extremities or head) *Use of iterative reconstruction technique DLP: 591 mGy-cm FINDINGS: LUNG BASES: Mild bronchiectasis at the bases, right greater than left. No consolidation. Atherosclerotic calcifications coronary arteries. LIVER, GALLBLADDER, AND BILIARY TREE: Nodular, shrunken liver with relative enlargement of the caudate lobe, consistent with cirrhosis. There is an ill-defined heterogeneous lesion at the hepatic dome measuring approximately 4.7 x 4.1 x 3.6 cm with central hypoattenuation which is increased in size as compared to prior. This may correspond to a metastatic disease or primary lesion. The multiple smaller lesions are seen on the prior study decreased in size. Previously seen intrahepatic very ductal dilatation with a normal caliber common bile duct is again noted. Soft tissue attenuation in the region of the confluence of the common bile duct may correlate with the suspected cholangiocarcinoma seen on the prior studies. Gallstones are present in the gallbladder. No gallbladder wall thickening or surrounding pericholecystic fluid. PANCREAS: A complex collection at the pancreatic head measures 5.8 x 4.3 x 7.2 cm and is new as compared to prior. No appreciable pancreatic ductal dilatation. No significant surrounding fat stranding. No calculi. SPLEEN: Unremarkable. ADRENAL GLANDS: Unremarkable. KIDNEYS AND URETERS: Focal cortical thinning is present in the lower pole the right kidney, potentially due to chronic scarring. Kidneys are otherwise normal in size, shape, and attenuation. No hydronephrosis, hydroureter, or calculi seen. No perinephric stranding. BLADDER: Thick walled and decompressed, potentially due to chronic bladder obstruction. No calculi. GASTROINTESTINAL TRACT: Ascending paraesophageal varices. Stomach, small bowel, and colon are normal in caliber. Appendix is normal. Mild colonic diverticulosis. No evidence of acute diverticulitis. Trace intraperitoneal free fluid. No free air. ABDOMINAL WALL: Moderate-sized fat-containing right inguinal hernia. LYMPH NODES: Numerous small mesenteric and retroperitoneal lymph nodes are present within the abdomen. No pathologic adenopathy is identified. VASCULAR: Portosystemic collaterals are identified including a recanalized paraumbilical vein and paraesophageal varices, amongst others. Embolization of a varix is evident in the left periaortic region near the diaphragm. PELVIC VISCERA: Enlarged prostate measuring 5.3 cm in diameter. OSSEOUS STRUCTURES: As multilevel degenerative disc disease in the lumbar spine with diffuse idiopathic skeletal hyperostosis. Multiple lytic osseous lesions are identified including a 2.1 cm lesion in the left iliac bone near the SI joint and a 1 cm lesion in the right aspect of the S1 body. These have both decreased in size as compared to the prior study. There is a 2.4 x 2.6 cm lesion within the L4 vertebral body under the superior endplate which is increased in size as compared to prior and correspond to metastatic disease or a massive Schmorl's node. CT/CT abdomen pelvis wo IV con IMPRESSION: 1. Hepatic cirrhosis with a 4.7 cm heterogeneous lesion at the hepatic dome which is increased in size as compared to prior and may correspond to a primary lesion or metastatic disease. The multiple smaller hypoattenuating lesions are less apparent on the current study. There is persistent intrahepatic ductal dilatation with subtle soft tissue attenuation at the confluence of the hepatic ducts which could correspond to the previously suspected cholangiocarcinoma, though is better seen on the prior MRI. 2. New 7.2 cm complex collection at the pancreatic head is of uncertain etiology and could correspond to a peripancreatic pseudocyst, hematoma, or a necrotic lesion. Consider further cortical indentation MRI abdomen with and without contrast if warranted. 3. Lytic osseous lesions in the left iliac bone and S1 body are decreased in size as compared to prior. A 2.6 cm lesion in the L4 vertebral body is increased in size as compared to prior, though could correspond to a Schmorl's node.. 4. Cholelithiasis without evidence of acute cholecystitis. 5. Prostatomegaly with a thick-walled bladder, likely due to chronic bladder outlet obstruction. Fleischner guidelines were followed.
[2023-11-16 21:55] VITALS: BP 185/87; PULSE 102; RESP 20; TEMP 37.1; O2SAT 97; BMI 27.0
[2023-11-16 22:18] LABS: MANUAL DIFF FLAG NO
[2023-11-16 22:36] LABS: Alanine Aminotransferase 59 U/L (0-40); Albumin Level 2.4 g/dL (3.5-5.0); Alkaline Phosphatase 300 U/L (39-117); Anion Gap 12 (12-20); Aspartate Amino Transferase 101 U/L (5-37); Blood Urea Nitrogen 17 mg/dL (9-16); Calcium 8.2 mg/dL (8.4-10.2); Carbon Dioxide 21 mmol/L (22-29); Chloride 108 mmol/L (96-108); Creatinine Clr Calc Pharmacy 73.9; Estimated Glomerular Filt Rate > 60; Glucose Random 89 mg/dL (60-115); Magnesium 1.7 mg/dL (1.6-2.6); Potassium 4.4 mmol/L (3.3-5.1); Sodium 137 mmol/L (135-145); Total Protein 7.4 g/dL (6.5-8.0)
[2023-11-16 22:40] LABS: Basophils Absolute Auto 0.1 X10*3/uL (0.0-0.2); Basophils Percent Auto 0.6 % (0-2); Eosinophils Absolute Auto 0.2 X10*3/uL (0.0-0.4); Eosinophils Percent Auto 1.7 % (0-4); Hematocrit 34.9 % (42.0-52.0); Hemoglobin 12.1 g/dl (14.0-18.0); Imm Gran Abs Auto 0.04 X10*3/uL (0.00-0.03); Imm Gran Pct Auto 0.4 % (0.0-0.4); Lymphocytes Absolute Auto 2.1 X10*3/uL (1.2-4.9); Lymphocytes Percent Auto 20.9 % (20-40); Mean Corpuscular HGB Conc 34.7 g/dl (31.0-36.0); Mean Corpuscular Hemoglobin 33.6 pg (27.0-33.0); Mean Corpuscular Volume 96.9 fL (80.0-98.0); Mean Platelet Volume 10.4 fL (9.4-12.4); Monocytes Absolute Auto 0.9 X10*3/uL (0.1-1.2); Monocytes Percent Auto 8.5 % (2-11); Neutrophils Absolute Auto 6.8 x10*3/uL (2.0-8.3); Neutrophils Percent Auto 67.9 % (45-73); Platelet Count 101 X10*3/uL (160-400); Red Cell Distribution Width 18.4 % (11.0-16.0); White Blood Count 10.1 X10*3/uL (4.8-10.8)
[2023-11-16 23:06] LABS: Influenza A PCR NEGATIVE (Negative); Influenza B PCR NEGATIVE (Negative); Resp Syncy Virus RNA Qual PCR NEGATIVE (Negative); SARS COV2 PCR INHOUSE NEGATIVE (Negative)
[2023-11-17 04:34] VITALS: BP 167/87; PULSE 97; RESP 18; TEMP 36.9; O2SAT 98
--- NOTE | 2023-11-17 04:35 | MHC.EDTECH ---
Patient came from the ,changed into hospital attire,vitals taken and placed on the youth nutritional monitor,call hernandez in reach
--- NOTE | 2023-11-17 04:39 | PC.NURSE ---
Spoke with pt , present at bedside. pt has significant hx of liver CA, with MRI scheduled for Saturday morning for rescan of abdomen. Pt c/o 2 days of L flank/rib pain, denies urinary symptoms.
--- NOTE | 2023-11-17 05:48 | MHC.EDTECH ---
Patient urinated 100MLS in urinal,sample obtained and sent to lab
[2023-11-17 05:49] VITALS: BP 146/79; PULSE 95; RESP 18; TEMP 36.8; O2SAT 97
[2023-11-17 06:12] LABS: Appearance Urine Clear; Color Urine Dark Yellow; Glucose Urine UA Negative (Negative); Leukocyte Esterase Urine Trace (Negative); Nitrite Urine Negative (Negative); PH 5.5 (5.0-9.0); Specific Gravity - Urine 1.025 (1.005-1.025); UMIC TRIGGER UACC YES; Urine Blood Negative (Negative); Urine Ketones Trace mg/dL (Negative); Urine Protein 30 (1+) mg/dL (Neg-Trace)
[2023-11-17 06:17] LABS: Bacteria Urine None Seen (None Seen); RBC Urine 0-2 /HPF (0-2); WBC Urine 0-5 /HPF (0-5)
--- NOTE | 2023-11-17 07:11 | ED.ABDPAIN ---
HPI - Abdominal Pain General Chief Complaint: Abdominal Pain Stated Complaint: L sided abdominal pain Time Seen by Provider: 11/17/23 07:11 Source: patient and family Mode of arrival: ambulatory Limitations: no limitations History of Present Illness ED Provider: DR. Aparicio HPI narrative: 78-year-old male with history of hypertension, DM, CAD s/p PCI, CVA, SVT, cholangiocarcinoma and hepatic Mets patient currently on oral chemotherapy at [facility]. Came in for 2 days of severe left flank pain radiates to the left upper quadrant area, no nausea, no vomiting, never had this pain in the past pain described as severe 10/10, no hematuria, no dysuria, no frequency urination, no fever, no chills, last bowel movement was yesterday. Never had intra-abdominal surgery in the past. Related Data Home Medications ?Medication ?Instructions ?Recorded ?Confirmed latanoprost 0.005 % eye drops 1 drp ophthalmic (eye) BEDTIME 01/29/22 10/30/23 timolol maleate 0.5 % eye drops 1 drp ophthalmic (eye) BID 01/29/22 10/30/23 carvedilol 6.25 mg tablet 6.25 mg PO BID 01/09/23 10/30/23 cyanocobalamin (vitamin B-12) 1,000 mcg PO DAILY 01/09/23 10/30/23 1,000 mcg tablet (Vitamin B-12) furosemide 40 mg tablet 40 mg PO DAILY 01/09/23 10/30/23 gabapentin 100 mg capsule 100 mg PO BEDTIME PRN Pain 01/09/23 10/30/23 magnesium gluconate 27 mg 27 mg PO DAILY 01/09/23 10/30/23 magnesium (500 mg) tablet (Mag-G) multivitamin with folic acid 400 1 tab PO DAILY 01/09/23 10/30/23 mcg tablet (Daily-Mel (with folic acid)) omeprazole 10 mg capsule,delayed 10 mg PO DAILY PRN Gastric Reflux 01/09/23 10/30/23 release spironolactone 50 mg tablet 50 mg PO DAILY 01/09/23 10/30/23 thiamine HCl (vitamin B1) 100 mg 100 mg PO DAILY 01/09/23 10/30/23 tablet acetaminophen 500 mg tablet 500 mg PO Q8H PRN mild pain 06/05/23 10/30/23 hydroxyzine HCl 25 mg tablet 25 mg PO DAILY PRN itch 06/05/23 10/30/23 diclofenac sodium 1 % topical gel 1 g topical QID 07/26/23 10/30/23 oxycodone 5 mg tablet 5 mg PO Q6H PRN Pain 07/26/23 10/30/23 prochlorperazine maleate 10 mg 10 mg PO TID PRN nausea/vomiting 07/26/23 10/30/23 tablet sorafenib 200 mg tablet (Nexavar) 400 mg PO DAILY 09/05/23 10/30/23 Previous Rx's ?Medication ?Instructions ?Recorded lactulose 20 gram/30 mL oral 30 ml PO TID Constipation #1,200 mL 06/07/23 solution rifaximin 550 mg tablet 550 mg PO BID 90 days #180 tabs 09/12/23 Allergies Allergy/AdvReac Type Severity Reaction Status Date / Time No Known Allergies Allergy Verified 11/16/23 21:58 [No Known Allergies*] Review of Systems Review of Systems All other systems are reviewed and are negative Constitutional: Reports as per HPI and Reports no additional constitutional complaints Eyes: Reports as per HPI and Reports no additional eye complaints Reports system reviewed and no additional complaints, except as documented Cardiovascular: Reports as per HPI and Reports no additional cardiovascular complaints Respiratory: Reports as per HPI and Reports no additional respiratory complaints Gastrointestinal: Reports as per HPI and Reports no additional gastrointestinal complaints Genitourinary: Reports no additional female genitourinary complaints Musculoskeletal: Reports no additional musculoskeletal complaints Skin/Breast: Reports system reviewed and no additional complaints, except as docu Psychiatric: Reports no additional psychiatric complaints Endocrine: Reports no additional endocrine complaints Hematologic/Lymphatic: Reports no additional hematologic/lymphatic complaints Allergic/Immunologic: Reports no additional allergic/immunologic complaints Reports system reviewed and no additional complaints, except as documented and Reports Abnormal speech present [facility] Past Medical History Medical History Cirrhosis Cholangiocarcinoma BOBO (nonalcoholic steatohepatitis) Bilateral inguinal hernia Gastric varix Type 2 diabetes mellitus with unspecified complications NSVT (nonsustained ventricular tachycardia) Essential hypertension Ascending aorta dilatation Ischemic stroke Atherosclerotic cardiovascular disease Surgical History H/O colonoscopy History of esophagogastroduodenoscopy (EGD) History of cardiac catheterization (~04/2015) Family History Family History Father No problems noted. Mother No problems noted. Social History Social History Household Members: Spouse Housing: House Do you presently have visiting nurse or other home services: No Unable to assess alcohol history related to: Unable to respond Alcohol intake: former Comment: [facility] [place] Patient Tobacco Use Status: Former Tobacco user Cigarettes Per Day: 10 Smoked in Last 30 Days: No Second Hand Smoke Exposure: No Use of substances other than those prescribed or required for medical reasons: No Advance Directives: Yes Advance Directives on File: Yes Advance Directives Date on File: 01/10/23 Do you have a plan to hurt others: No Plan service: No Physical Exam ED Vital Signs: Vital Signs - 24 hr 11/16/23 21:55 11/17/23 04:34 11/17/23 05:49 Temperature 98.8 F 98.4 F 98.2 F Pulse Rate 102 H 97 95 Respiratory Rate 20 18 18 Blood Pressure 185/87 H 167/87 H 146/79 H Pulse Oximetry 97 98 97 Oxygen Delivery Method Room Air Room Air Room Air 11/17/23 08:00 Temperature Pulse Rate 98 Respiratory Rate 18 Blood Pressure 165/88 H Pulse Oximetry 98 Oxygen Delivery Method Room Air BMI result Body Mass Index 27.0 Vital signs have been reviewed and appear to be correct. Blood pressure elevated. Heart rate normal. Respiratory rate normal. Temperature normal. Oxygen saturation normal. Appearance: Alert. Oriented X3. No acute distress. Head: Normal external exam. Normocephalic. Atraumatic. No Villalpando signs noted. No raccoon eyes noted Eyes: PERRLA. EOMI. Conjunctiva and sclera normal. Eyelids normal. ENT: TM's Normal. Pharynx normal. Uvula midline. Moist mucous membranes. No trismus noted. No drooling noted. No muffled voice noted. Neck: Normal inspection. Neck supple. FROM. No adenopathy. Thyroid Normal. No meningeal signs. No neck mass noted. CVS: Normal heart rate and rhythm. Heart sound normal. No murmurs noted. Pulses normal throughout. Respiratory: No respiratory distress. Painless inspiration. Breath sounds normal. No wheezes/rales/rhonchi noted. Chest nontender. No accessory muscle usage noted or decreased air movement noted. Abdomen: Soft , mild epigastric tenderness. Bowel sounds normal in all 4 quadrants. No distention noted. No organomegaly noted. No visible injury noted. Back: Left CVA tenderness. Full range of motion noted. Skin: Skin warm and dry. Normal skin color. Normal skin turgor. No rashes/lesions/lacerations noted. Extremities: No lower extremity edema. Extremities exhibit normal range of motion. Extremities nontender. Neuro: Oriented X 3. Cranial nerve exam: II-XII are grossly intact No motor deficit. No sensory deficit. Reflexes normal. Course Reevaluation(s) Reevaluation #1: 78-year-old male with history of cholangiocarcinoma with hepatic metastasis came in with severe pain, CT is showing is a do cyst of the head of pancreas, patient is scheduled to have an MRI of the abdomen tomorrow at [facility] by his oncologist, because patient's record an oncologist is at [facility] family and patient is requesting to be transferred to [facility]. Case discussed with Dr. Kennedy who accepted the patient will arrange for transportation to [facility]. CT abdomen and pelvis was uploaded to [employer] Time: 09:55 Medical Decision Making Differential Diagnosis Differential Diagnoses: The differential diagnosis associated with the presentation includes ( kidney stone, ureteric stone, pancreatitis, pancreatic mass, UTI, colitis, diverticulitis.) Admission/Observation Consideration of admission/observation: Escalation of care including admission/observation considered Lab Data MDM Lab Attestation statement: I reviewed the patient's lab results. 11/16/23 22:13 11/16/23 22:13 Labs: Lab Results 11/16/23 11/17/23 Range/Units 22:13 05:47 WBC 10.1 (4.8-10.8) X10*3/uL RBC 3.60 L (4.60-5.80) X10*6/uL Hgb 12.1 L (14.0-18.0) g/dl Hct 34.9 L (42.0-52.0) % MCV 96.9 (80.0-98.0) fL MCH 33.6 H (27.0-33.0) pg MCHC 34.7 (31.0-36.0) g/dl RDW 18.4 H (11.0-16.0) % Plt Count 101 L (160-400) X10*3/uL MPV 10.4 (9.4-12.4) fL Immature Gran % (Auto) 0.4 (0.0-0.4) % Neut % (Auto) 67.9 (45-73) % Lymph % (Auto) 20.9 (20-40) % Mellette % (Auto) 8.5 (2-11) % Eos % (Auto) 1.7 (0-4) % Baso % (Auto) 0.6 (0-2) % Lymph # (Auto) 2.1 (1.2-4.9) X10*3/uL Mellette # (Auto) 0.9 (0.1-1.2) X10*3/uL Eos # (Auto) 0.2 (0.0-0.4) X10*3/uL Baso # (Auto) 0.1 (0.0-0.2) X10*3/uL Abs Immat Gran (auto) 0.04 H (0.00-0.03) X10*3/uL Absolute Neuts (auto) 6.8 (2.0-8.3) x10*3/uL Absolute Nucleated RBC 0.000 (0.0-0.012) X10*3/uL Nucleated RBC % (auto) 0.0 (0.0-0.2) /100WBC Sodium 137 (135-145) mmol/L Potassium 4.4 (3.3-5.1) mmol/L Chloride 108 (96-108) mmol/L Carbon Dioxide 21 L (22-29) mmol/L Anion Gap 12 (12-20) BUN 17 H (9-16) mg/dL Creatinine 0.85 (0.5-1.4) mg/dL Estim Creat Clear Calc 73.9 Estimated GFR > 60 Random Glucose 89 (60-115) mg/dL Calcium 8.2 L D (8.4-10.2) mg/dL Magnesium 1.7 (1.6-2.6) mg/dL Total Bilirubin 4.0 H (0.0-1.0) mg/dL AST 101 H (5-37) U/L ALT 59 H (0-40) U/L Alkaline Phosphatase 300 H (39-117) U/L Total Protein 7.4 (6.5-8.0) g/dL Albumin 2.4 L (3.5-5.0) g/dL Urine Color Dark Yellow Urine Appearance Clear Urine pH 5.5 (5.0-9.0) Ur Specific [place] 1.025 (1.005-1.025) Urine Protein 30 (1+) H (Neg-Trace) mg/dL Urine Glucose (UA) Negative (Negative) mg/dL Urine Ketones Trace (Negative) mg/dL Urine Blood Negative (Negative) Urine Nitrite Negative (Negative) Ur Leukocyte Esterase Trace H (Negative) Urine RBC 0-2 (0-2) /HPF Urine WBC 0-5 (0-5) /HPF Ur Squamous Epith Cells 3-5 (0-2) /HPF Urine Bacteria None Seen (None Seen) Hyaline Casts 3-5 (0-2) /LPF Influenza Type A (PCR) NEGATIVE (Negative) Influenza Type B (PCR) NEGATIVE (Negative) RSV RNA Qual (PCR) NEGATIVE (Negative) SARS-CoV-2 RNA (RT-PCR) NEGATIVE (Negative) Independent Interpretation I performed an independent interpretation of an: CT Scan ( Abdomen and pelvis:1. Hepatic cirrhosis with a 4.7 cm heterogeneous lesion at the hepatic dome which is increased in size as compared to prior and may correspond to a primary lesion or metastatic disease. The multiple smaller hypoattenuating lesions are less apparent on the current study. There i) Radiology Impression Discussion of test interpretation with radiology: I have reviewed the radiologist's reading. Medications Administered Discontinued Medications Generic Name Dose Route Start Last Admin Trade Name Freq PRN Reason Stop Dose Admin Ketorolac Tromethamine 30 mg 11/17/23 07:16 11/17/23 08:26 Ketorolac Tromethamine 30 Mg/Ml Vial IVPUSH 11/17/23 07:17 30 mg ONCE ONE Administration Ketorolac Tromethamine 60 mg 11/17/23 08:12 11/17/23 09:09 Ketorolac Tromethamine 60 Mg/2 Ml Vial IM 11/17/23 08:13 Not Given ONCE ONE Morphine Sulfate 1 mg 11/17/23 07:16 11/17/23 08:09 Morphine Sulfate 2 Mg/Ml Cartridge IVPUSH 11/17/23 07:17 1 mg ONCE ONE Administration Protocol Morphine Sulfate 4 mg 11/17/23 08:12 11/17/23 09:09 Morphine Sulfate 4 Mg/Ml Cartridge IM 11/17/23 08:13 Not Given ONCE ONE Protocol Discharge Plan Discharge Clinical Impression: Abdominal pain, Pancreatic pseudocyst Patient Disposition: [facility] Prescriptions: No Action rifaximin 550 mg tablet 550 mg PO BID 90 Days Qty: 180 1RF furosemide 40 mg tablet 40 mg PO DAILY carvedilol 6.25 mg tablet 6.25 mg PO BID cyanocobalamin (vitamin B-12) [Vitamin B-12] 1,000 mcg tablet 1,000 mcg PO DAILY thiamine HCl (vitamin B1) 100 mg tablet 100 mg PO DAILY omeprazole 10 mg capsule,delayed release(DR/EC) 10 mg PO DAILY PRN (Reason: Gastric Reflux) gabapentin 100 mg capsule 100 mg PO BEDTIME PRN (Reason: Pain) spironolactone 50 mg tablet 50 mg PO DAILY magnesium gluconate [Mag-G] 27 mg magnesium (500 mg) tablet 27 mg PO DAILY multivitamin with folic acid [Daily-Mel (with folic acid)] 400 mcg tablet 1 tab PO DAILY acetaminophen 500 mg tablet 500 mg PO Q8H PRN (Reason: mild pain) hydroxyzine HCl 25 mg tablet 25 mg PO DAILY PRN (Reason: itch) lactulose 20 gram/30 mL solution 30 ml PO TID Qty: 1200 0RF prochlorperazine maleate 10 mg tablet 10 mg PO TID PRN (Reason: nausea/vomiting) oxycodone 5 mg tablet 5 mg PO Q6H PRN (Reason: Pain) diclofenac sodium 1 % gel 1 g topical QID timolol maleate 0.5 % drops 1 drp ophthalmic (eye) BID latanoprost 0.005 % drops 1 drp ophthalmic (eye) BEDTIME sorafenib [Nexavar] 200 mg tablet 400 mg PO DAILY Print Language: Hungarian
[2023-11-17 08:00] VITALS: BP 165/88; PULSE 98; RESP 18; O2SAT 98
--- NOTE | 2023-11-17 08:04 | PC.NURSE ---
Patient requesting for IV meds to be given IM d/t being difficult to place an IV. Provider aware stating okay to give IM.
[2023-11-17] MEDS: Morphine Sulfate 2 MG/ML CARTRIDGE 1 MG IVPUSH (08:09)
[2023-11-17] MEDS: Ketorolac Tromethamine 30 MG/ML VIAL IVPUSH (08:26)
[2023-11-17 10:37] LABS: Lipase 20 U/L (8-78)
--- NOTE | 2023-11-17 11:49 | PC.NURSE ---
Report given to nadiya at [facility]
[2023-11-17 13:01] VITALS: BP 165/88; PULSE 98; RESP 18; TEMP 36.8; O2SAT 98
== END 2023-11-17 13:02 | disposition short-term general hospital (02) ==
PROVIDERS: Emergency Provider Emergency Medicine; PCP Nurse Practitioner Family
DX: K86.3 Pseudocyst of pancreas (principal); R10.12 Left upper quadrant pain; I10 Essential (primary) hypertension; E11.8 Type 2 diabetes mellitus with unspecified complications; C22.1 Intrahepatic bile duct carcinoma; Z03.818 Encounter for observation for suspected exposure to other biological agents ruled out
CPT/HCPCS: 0241U; 74176; 80053; 81001; 83690; 83735; 85025; 96374; 96375; 99285; J1885; J2270